=== PATIENT | female | born 1985 | race American Indian/Alaskan Native ===

== ENCOUNTER 2017-04-04 18:22 | Inpatient (IN) | payer MEDICAID ==
[2017-04-04 20:28] LABS: Basophils % (Auto) 0.9 % (0.0-1.8); Eosinophils # (Auto) 0.1 K/mm3 (0.0-0.4); Eosinophils % (Auto) 2.1 % (0.0-4.3); Hematocrit 36.4 % (30.3-42.9); Hemoglobin 11.2 gm/dl (10.1-14.3); Lymphocytes # (Auto) 1.7 K/mm3 (1.2-5.4); Lymphocytes % (Auto) 33.7 % (13.4-35.0); Mean Corpuscular HGB Conc 31 % (30-34); Mean Corpuscular Volume 75 fl (79-97); Monocytes # (Auto) 0.3 K/mm3 (0.0-0.8); Platelet Count 213 K/mm3 (140-440); Red Blood Count 4.87 M/mm3 (3.65-5.03); Red Cell Distribution Width 15.9 % (13.2-15.2)
[2017-04-04 20:34] LABS: Mean Corpuscular Hemoglobin 23 pg (28-32)
[2017-04-04 20:38] LABS: Bilirubin,Urine NEG (Negative); Blood,Urine SM (Negative); Color,Urine Straw (Yellow); Nitrite,Urine NEG (Negative); Protein,Urine <15 mg/dL mg/dL (Negative); Urobilinogen,Urine < 2.0 mg/dL (<2.0); WBC,Urine < 1.0 /HPF (0.0-6.0)
[2017-04-04 20:38] LABS: Blood Urea Nitrogen TNR mg/dL (7-17)
[2017-04-04 20:39] LABS: BUN/Creatinine Ratio TNR; Calcium TNR mg/dL (8.4-10.2); Hemolysis Index TNR
[2017-04-04 20:46] LABS: HCG Qualitative,Urine Negative (Negative)
[2017-04-04 22:10] LABS: BUN/Creatinine Ratio 23; Blood Urea Nitrogen 18 mg/dL (7-17); Calcium 9.2 mg/dL (8.4-10.2); Hemolysis Index 43
[2017-04-04] MEDS ORDERED: D5W/0.45% NACL/KCL 20 MEQ 20 MEQ/1,000 ML BAG IV SCH (23:45)
[2017-04-04] MEDS ORDERED: SODIUM CHLORIDE FLUSH SYRINGE 10 ML IV NR (23:45)
[2017-04-04] MEDS ORDERED: NovoLIN R 100 UNITS in NACL 0.9% 99 ML IV SCH (23:45)
[2017-04-04] MEDS ORDERED: NACL 0.9% 1000 ML 2,000 ML IV ONE (23:56)
[2017-04-04] MEDS ORDERED: D50W (25GM) Syringe IV PRN (23:58)
[2017-04-04] MEDS ORDERED: NACL 0.9% 1000 ML 1,000 ML IV ONE (23:58)
[2017-04-05] MEDS ORDERED: BENADRYL IV ONE (00:09)
[2017-04-05] MEDS ORDERED: ZOFRAN IV ONE (00:13)
--- NOTE | 2017-04-05 00:13 | Emergency Department Report ---
ED N/V/D HPI - General Chief complaint: Hyperglycemia Stated complaint: BACK PAIN, N/V Time Seen by Provider: 04/04/17 23:37 Source: patient Mode of arrival: Ambulatory Limitations: No Limitations - History of Present Illness Initial comments: 31 YO FEMALE WITH BILATERAL FLANK PAIN SINCE 03/28/17 AND INABILITY TO CONTROL HER DM TYPE I. SHE HAS HAD TWO DAY OF NAUSEA AND VOMITING AND ITCHY FEELIGN ON HER ENTIRE BODY. SHE C/O DYSURIA WELL MD complaint: nausea, vomiting, abdominal pain -: week(s) (1) Description of Vomiting: food contents Associated Abdominal Pain: Yes Location: flank (BILATERAL) Severity: severe Pain Scale: 10 Quality: constant Improves with: rest Worsens with: movement Associated Symptoms: denies other symptoms - Related Data Allergies Allergy/AdvReac Type Severity Reaction Status Date / Time ketorolac [From Toradol] Allergy Itching Verified 04/04/17 18:50 morphine Allergy Itching Verified 04/04/17 18:50 ED Review of Systems ROS: Stated complaint: BACK PAIN, N/V Other details as noted in HPI Constitutional: denies: chills, fever Eyes: denies: eye pain, eye discharge, vision change ENT: denies: ear pain, throat pain Respiratory: denies: cough, shortness of breath, wheezing Cardiovascular: denies: chest pain, palpitations Endocrine: no symptoms reported Gastrointestinal: nausea, vomiting. denies: abdominal pain, diarrhea Genitourinary: dysuria. denies: urgency, discharge Musculoskeletal: back pain (BILATERAL FLANK). denies: joint swelling, arthralgia Skin: denies: rash, lesions Neurological: denies: headache, weakness, paresthesias Psychiatric: denies: anxiety, depression Hematological/Lymphatic: denies: easy bleeding, easy bruising ED Past Medical Hx - Past Medical History Previous Medical History?: Yes Hx Diabetes: Yes (TYPE I) - Surgical History Hx Cholecystectomy: Yes Additional Surgical History: NEPHOSTOMY STENTS, - Social History Smoking Status: Unknown if ever smoked Substance Use Type: None ED Physical Exam - General Limitations: No Limitations General appearance: alert, in distress - Head Head exam: Present: atraumatic, normocephalic - Eye Eye exam: Present: normal appearance, EOMI - ENT ENT exam: Present: mucous membranes moist - Neck Neck exam: Present: normal inspection - Respiratory Respiratory exam: Present: normal lung sounds bilaterally. Absent: respiratory distress, wheezes, rales - Cardiovascular Cardiovascular Exam: Present: regular rate, normal rhythm. Absent: systolic murmur, diastolic murmur, rubs, gallop - GI/Abdominal GI/Abdominal exam: Present: soft, tenderness (BILATERAL FLANK), normal bowel sounds - Rectal Rectal exam: Present: deferred - Extremities Exam Extremities exam: Present: normal inspection, full ROM - Back Exam Back exam: Present: normal inspection, full ROM, CVA tenderness (R), CVA tenderness (L) - Neurological Exam Neurological exam: Present: alert, oriented X3, CN II-XII intact - Psychiatric Psychiatric exam: Present: normal affect, normal mood - Skin Skin exam: Present: warm, dry, intact, normal color. Absent: rash ED Course Vital Signs 04/04/17 04/04/17 04/04/17 18:47 23:04 23:16 Temperature 98.6 F Pulse Rate 88 82 85 Respiratory 18 19 20 Rate Blood Pressure 137/88 134/82 134/82 O2 Sat by Pulse 100 96 98 Oximetry 04/04/17 04/04/17 04/05/17 23:30 23:46 00:00 Temperature Pulse Rate 99 H 106 H 96 H Respiratory 11 L 14 14 Rate Blood Pressure 127/89 135/93 144/98 O2 Sat by Pulse 98 100 97 Oximetry 04/05/17 04/05/17 04/05/17 00:16 00:30 00:45 Temperature Pulse Rate 87 125 H 84 Respiratory 11 L 20 17 Rate Blood Pressure 138/87 132/84 133/79 O2 Sat by Pulse 98 97 Oximetry 04/05/17 04/05/17 04/05/17 01:30 01:46 01:49 Temperature Pulse Rate 101 H 96 H Respiratory 12 24 18 Rate Blood Pressure 133/79 120/86 O2 Sat by Pulse 99 98 Oximetry 04/05/17 04/05/17 04/05/17 02:16 04:15 04:30 Temperature Pulse Rate 100 H 88 90 Respiratory 25 H 20 20 Rate Blood Pressure 120/86 127/85 108/69 O2 Sat by Pulse 98 100 98 Oximetry ED Medical Decision Making - Lab Data Result diagrams: 04/04/17 19:41 04/05/17 04:31 - Radiology Data Radiology results: report reviewed (CT ABND/PELVIS W/O :NON-OBSTRUCTING STONE IN THE LEFT KIDNEY, 3.4 CM LEFT OVERIAN CYSTS) Critical Care Time: Yes Critical care time in (mins) excluding proc time.: 30 Critical care attestation.: If time is entered above; I have spent that time in minutes in the direct care of this critically ill patient, excluding procedure time. PETER ED Disposition Clinical Impression: Bilateral flank pain DKA, type 1 Qualifiers: Diabetes mellitus complication detail: without coma Qualified Code(s): E10.10 - Type 1 diabetes mellitus with ketoacidosis without coma Disposition: DC-09 OP ADMIT IP TO THIS HOSP Is pt being admited?: Yes Does the pt Need Aspirin: No Condition: Critical Instructions: Diabetic Ketoacidosis (ED) Time of Disposition: 05:17 (DR KERVIN LYONS AND CASE REVIEWED AND SHE WILL ADMIT THE PT TO THE HOSPITAL)
--- NOTE | 2017-04-05 01:17 | Cat Scan Report ---
FINAL REPORT EXAM: CT ABDOMEN PELVIS WO CON HISTORY: BILATERAL FLANK PAIN TECHNIQUE: Routine axial imaging was obtained of the abdomen and pelvis without oral or IV contrast. Sagittal and coronal reconstructions were reviewed. FINDINGS: The lung bases are clear. Pleural fluid is not identified. The gallbladder has been removed. The biliary tree appears normal. The liver, adrenal glands, and pancreas appear normal. There are benign calcifications noted in the spleen which otherwise is normal in size. The kidneys reveal several nonobstructing calcifications in the left kidney measure up to 6 millimeters in diameter. There is no evidence of hydronephrosis. In the upper abdomen there are nonspecific vascular calcifications. The bowel loops are normal in caliber. The appendix is not enlarged. There is no evidence of free fluid or adenopathy. The bowel loops otherwise reveal radiopaque material in the colon. In the pelvis there is a left ovarian cyst measuring 3.4 cm in diameter. Free fluid is not seen. The uterus and bladder appear normal. There are multiple phleboliths along the floor of the pelvis. The skeletal structures do not show any acute changes. IMPRESSION: Cholecystectomy. No acute process in the abdomen and pelvis. Nonobstructing stones in left kidney. No evidence of hydronephrosis. No evidence of appendicitis. 3.4 cm left ovarian cyst. No evidence of free fluid
[2017-04-05 01:47] LABS: Magnesium 2.1 mg/dL (1.7-2.3)
[2017-04-05 01:51] LABS: BUN/Creatinine Ratio 20; Blood Urea Nitrogen 16 mg/dL (7-17); Calcium 9.2 mg/dL (8.4-10.2); Hemolysis Index 13
[2017-04-05 03:14] LABS: BUN/Creatinine Ratio 23; Blood Urea Nitrogen 16 mg/dL (7-17); Calcium 9.5 mg/dL (8.4-10.2); Hemolysis Index 29
[2017-04-05] MEDS ORDERED: ZOFRAN ONE (03:57)
[2017-04-05] MEDS ORDERED: NACL 0.9% 1000 ML 1,000 ML ONE ×2 (03:58→03:59)
[2017-04-05] MEDS ORDERED: BENADRYL ONE (03:59)
[2017-04-05 04:58] LABS: BUN/Creatinine Ratio 21; Blood Urea Nitrogen 15 mg/dL (7-17); Calcium 9.1 mg/dL (8.4-10.2); Hemolysis Index 22
[2017-04-05] MEDS ORDERED: ZOFRAN IV PRN (05:25)
[2017-04-05] MEDS ORDERED: TYLENOL PO PRN (05:25)
[2017-04-05] MEDS ORDERED: DULCOLAX PR PRN (05:25)
[2017-04-05] MEDS ORDERED: MORPHINE IV PRN (05:25)
[2017-04-05] MEDS ORDERED: MILK OF MAGNESIA PO PRN (05:25)
--- NOTE | 2017-04-05 05:55 | History and Physical Report ---
History of Present Illness Date of examination: 04/05/17 History of present illness: 31 -year-old woman with a history of diabetes plus emergency room with complaints of nausea and vomiting, unable to tolerate oral intake for 2 days. Also complained that her blood sugars been running high at home and also complain of bilateral flank pain. Described the flank pain as sharp, constant, intensity 5/10, no radiation, she can identify exacerbating factor. Also admits to urinary frequency, no dysuria Review Of Systems: Constitutional: no weight loss Ears, eyes, nose, mouth and throat: no nasal congestion, no nasal discharge, no sinus pressure, blurry vision, diplopia Neck: No neck pain or rigidity. Cardiovascular: No chest pain, palpitations Respiratory: No shortness of breath, cough Gastrointestinal: No abdominal pain, hematochezia Genitourinary : no dysuria, frequency , hematuria Musculoskeletal: no muscle ache Integumentary: no rash, no pruritis Neurological: no parathesias, focal weakness Endocrine: no cold or heat intolerance, no polyuria or polydipsia Hematologic/Lymphatic: no easy bruising, no easy bleeding, no gland swelling Allergic/Immunologic: no urticaria, no angioedema. Medications and Allergies Allergies Allergy/AdvReac Type Severity Reaction Status Date / Time ketorolac tromethamine Allergy Severe Hives Verified 08/10/16 21:06 [From Toradol] ketorolac [From Toradol] Allergy Itching Verified 04/04/17 18:50 morphine Allergy Itching Verified 04/04/17 18:50 Home Medications Medication Instructions Recorded Confirmed Last Taken Type Insulin Glargine,Hum.rec.anlog 26 units SUB-Q QPM 04/05/17 04/05/17 Unknown History [Basaglar Kwikpen U-100] Insulin Lispro [HumaLOG VIAL] 9 units SUB-Q AC 04/05/17 04/05/17 Unknown History Methimazole [Tapazole] 10 mg PO QDAY 04/05/17 04/05/17 Unknown History Ondansetron [Zofran Odt] 4 mg PO Q4H PRN #30 tab.rapdis 04/07/17 Unknown Rx oxyCODONE /ACETAMINOPHEN [Percocet 1 tab PO Q4HR #12 tab 04/07/17 Unknown Rx 5/325] Active Meds: Active Medications Acetaminophen (Tylenol) 650 mg PO Q4H PRN PRN Reason: Pain MILD(1-3)/Fever >100.5/SAINZ Bisacodyl (Dulcolax) 10 mg [place] QDAY PRN PRN Reason: Constipation unrelieved by MOM Dextrose (D50w (25gm) Syringe) 0 ml IV PRN PRN PRN Reason: Hypoglycemia Enoxaparin Sodium (Lovenox) 40 mg SUB-Q QDAY MATEO Hydromorphone HCl (Dilaudid) 1 mg IV Q4H PRN PRN Reason: Pain , Severe (7-10) Insulin Human Regular 100 (units/ Sodium Chloride) 100 mls @ 9.9 mls/hr IV TITR MATEO; 9.9 UNITS/HR PRN Reason: Protocol Last Titration: 04/05/17 05:38 Dose: 5 units/hr, 5 mls/hr Dextrose/Sodium Chloride (D5/0.45ns) 1,000 mls @ 150 mls/hr IV DIRECT MATEO Sodium Chloride (Nacl 0.9% 1000 Ml) 1,000 mls @ 150 mls/hr IV DIRECT MATEO Magnesium Hydroxide (Milk Of Magnesia) 30 ml PO Q4H PRN PRN Reason: Constipation Ondansetron HCl (Zofran) 4 mg IV Q8H PRN PRN Reason: N/V unrelieved by Reglan Sodium Chloride (Sodium Chloride Flush Syringe 10 Ml) 10 ml IV PRN NR Stop: 04/05/17 23:44 Exam - Physical Exam Narrative exam: Gen. appearance: Patient lying in bed in no acute distress HEENT: Normocephalic/atraumatic, pupils equal round reactive to light, extra occular movement intact, no scleral icterus, no JVD or thyromegaly or nodule, neck is supple, mucous membrane moist, no erythema or exudate Heart: S1-S2, regular rate and rhythm Lungs: Clear to auscultation bilateral breathing comfortable Abdomen: Positive bowel sounds, nontender, nondistended, no organomegaly Extremities: No edema, cyanosis, clubbing Neuro:: Oriented 3 , cranial nerves II-12 intact, speech, motor intact Skin: No rash, nodules, warm dry - Constitutional Vitals: Temp Pulse Resp BP Pulse Ox 98.6 F 94 H 20 102/66 98 04/04/17 18:47 04/05/17 05:00 04/05/17 05:00 04/05/17 05:00 04/05/17 05:00 Results - Labs CBC & Chem 7: 04/06/17 04:25 04/06/17 04:25 Labs: Abnormal lab results 04/04/17 04/04/17 04/04/17 Range/Units 18:50 19:41 21:31 MCV 75 L (79-97) fl MCH 23 L (28-32) pg RDW 15.9 H (13.2-15.2) % Sodium 129 L (137-145) mmol/L Potassium 5.4 H (3.6-5.0) mmol/L Chloride 92.2 L (98-107) mmol/L Carbon Dioxide 19 L (22-30) mmol/L BUN 18 H (7-17) mg/dL Glucose 620 H* (65-100) mg/dL POC Glucose > 500 H (70-105) 04/05/17 04/05/17 04/05/17 Range/Units 01:09 02:27 04:15 MCV (79-97) fl MCH (28-32) pg RDW (13.2-15.2) % Sodium 132 L 134 L (137-145) mmol/L Potassium (3.6-5.0) mmol/L Chloride 95.1 L 96.5 L (98-107) mmol/L Carbon Dioxide 20 L (22-30) mmol/L BUN (7-17) mg/dL Glucose 452 H 433 H (65-100) mg/dL POC Glucose 402 H (70-105) 04/05/17 04/05/17 Range/Units 04:31 05:32 MCV (79-97) fl MCH (28-32) pg RDW (13.2-15.2) % Sodium 134 L (137-145) mmol/L Potassium (3.6-5.0) mmol/L Chloride (98-107) mmol/L Carbon Dioxide (22-30) mmol/L BUN (7-17) mg/dL Glucose 384 H (65-100) mg/dL POC Glucose 283 H (70-105) - Imaging and Cardiology CT scan - abdomen: report reviewed CT scan - pelvis: report reviewed Assessment and Plan Assessment DKA Pseudohyponatremia Plan admit to medicine Start IV fluids, insulin drip, monitor serial chemistry, blood sugar Consult critical care, iv. pain medication, DVT prophylaxis
[2017-04-05] MEDS ORDERED: D5/0.45NS 1,000 ML IV SCH (06:00)
[2017-04-05] MEDS ORDERED: NACL 0.9% 1000 ML 1,000 ML IV SCH ×2 (06:00→10:00)
[2017-04-05] MEDS ORDERED: DILAUDID ONE ×2 (06:10→09:37)
[2017-04-05] MEDS: DILAUDID IV PRN ×5 (06:37→22:47)
[2017-04-05 06:55] LABS: BUN/Creatinine Ratio 22; Blood Urea Nitrogen 13 mg/dL (7-17); Calcium 8.5 mg/dL (8.4-10.2); Hemolysis Index 79
[2017-04-05] MEDS ORDERED: D50W (25GM) Syringe IV PRN (09:58)
[2017-04-05 10:49] LABS: BUN/Creatinine Ratio 18; Blood Urea Nitrogen 11 mg/dL (7-17); Calcium 8.5 mg/dL (8.4-10.2); Hemolysis Index 47
[2017-04-05] MEDS: BENADRYL IV PRN ×2 (11:04→18:41)
[2017-04-05] MEDS: NACL 0.45% 1000 ML 1,000 ML IV SCH (11:30)
[2017-04-05] MEDS: KCL 20MEQ/100ML 20 MEQ/100 ML BAG IV SCH ×2 (11:31→11:32)
[2017-04-05] MEDS: LOVENOX SUB-Q SCH (13:30)
--- NOTE | 2017-04-05 14:37 | Event Note ---
Date: 04/05/17 Patient was admitted for DKA and started to be managed for daycare according to DKA protocol. Patient to DKA and admission is downgraded to MedSurg floor.. Patient is on sliding scale insulin, ADA diet, and home dose of QHS insulin
[2017-04-05 17:19] LABS: BUN/Creatinine Ratio 14; Blood Urea Nitrogen 11 mg/dL (7-17)
[2017-04-05 17:20] LABS: Calcium 8.2 mg/dL (8.4-10.2); Hemolysis Index 0
[2017-04-05] MEDS: LEVEMIR SUB-Q SCH (22:49)
[2017-04-06 01:18] LABS: BUN/Creatinine Ratio 16; Blood Urea Nitrogen 11 mg/dL (7-17); Calcium 8.3 mg/dL (8.4-10.2); Hemolysis Index 15
[2017-04-06] MEDS: DILAUDID IV PRN ×4 (03:32→20:14)
[2017-04-06] MEDS: BENADRYL IV PRN ×3 (03:32→20:14)
[2017-04-06 04:41] LABS: Basophils % (Auto) 0.7 % (0.0-1.8); Eosinophils # (Auto) 0.1 K/mm3 (0.0-0.4); Eosinophils % (Auto) 3.4 % (0.0-4.3); Hemoglobin 10.2 gm/dl (10.1-14.3); Lymphocytes # (Auto) 1.9 K/mm3 (1.2-5.4); Lymphocytes % (Auto) 43.4 % (13.4-35.0); Mean Corpuscular HGB Conc 31 % (30-34); Mean Corpuscular Volume 74 fl (79-97); Monocytes # (Auto) 0.3 K/mm3 (0.0-0.8); Monocytes % (Auto) 6.7 % (0.0-7.3); Platelet Count 184 K/mm3 (140-440); Red Blood Count 4.44 M/mm3 (3.65-5.03); Red Cell Distribution Width 15.8 % (13.2-15.2)
[2017-04-06 04:42] LABS: Mean Corpuscular Hemoglobin 23 pg (28-32)
[2017-04-06 05:04] LABS: BUN/Creatinine Ratio 14; Blood Urea Nitrogen 10 mg/dL (7-17); Calcium 8.5 mg/dL (8.4-10.2); Hemolysis Index 8
[2017-04-06] MEDS: NACL 0.45% 1000 ML 1,000 ML IV SCH ×2 (08:01→20:14)
--- NOTE | 2017-04-06 11:09 | XRay Report ---
Portable chest: Line placement. There is a left PICC line well-positioned in the mid SVC. The lungs are clear the mediastinal contour is unremarkable.
[2017-04-06] MEDS: LOVENOX SUB-Q SCH (11:17)
--- NOTE | 2017-04-06 15:40 | Progress Note ---
<AMIE MENDOZA - Last Filed: 04/06/17 15:35> Assessment and Plan Assessment and plan: 31 -year-old woman with a history of diabetes presents to emergency room with complaints of nausea and vomiting, unable to tolerate oral intake for 2 days. Also complained that her blood sugars been running high at home and also complain of bilateral flank pain. Described the flank pain as sharp, constant, intensity with 10, no radiation, she can identify exacerbating factor. Also admits to urinary frequency, no dysuria DKA Resolved Continue daily at bedtime insulin, SSI, ADA diet Accu-Cheks before meals and at bedtime Pseudohyponatremia Resolved, will continue to monitor Nausea Patient is still actively nauseous, we'll continue to observe, continue Zofran when necessary, possible GI consult. Flank pain Supportive care DVT prophylaxis Lovenox History Interval history: Patient seen and examined. She continues to complain of nausea and bilateral flank pain. She denies chest pain, shortness of breath, not vomiting. Nursing notes and labs reviewed. Hospitalist Physical - Constitutional Vitals: Temp Pulse Resp BP Pulse Ox 98.8 F 79 18 121/81 99 04/06/17 07:28 04/06/17 07:28 04/06/17 07:28 04/06/17 07:28 04/06/17 07:28 General appearance: Present: mild distress - EENT Eyes: Present: PERRL, EOM intact ENT: hearing intact, clear oral mucosa - Neck Neck: Present: supple, normal ROM - Respiratory Respiratory effort: normal Respiratory: bilateral: CTA - Cardiovascular Rhythm: regular Heart Sounds: Present: S1 & S2 - Extremities Extremities: no ischemia, No edema Peripheral Pulses: within normal limits - Abdominal General gastrointestinal: soft, tender (bilateral flank R>L) - Integumentary Integumentary: Present: clear, warm, dry - Psychiatric Psychiatric: appropriate mood/affect, cooperative - Neurologic Neurologic: CNII-XII intact, moves all extremities - Allied Health Allied health notes reviewed: nursing Results - Labs CBC & Chem 7: 04/06/17 04:25 04/06/17 04:25 Labs: Laboratory Last Values WBC 4.3 K/mm3 (4.5-11.0) L 04/06/17 04:25 RBC 4.44 M/mm3 (3.65-5.03) 04/06/17 04:25 Hgb 10.2 gm/dl (10.1-14.3) 04/06/17 04:25 Hct 33.0 % (30.3-42.9) 04/06/17 04:25 MCV 74 fl (79-97) L 04/06/17 04:25 MCH 23 pg (28-32) L 04/06/17 04:25 MCHC 31 % (30-34) 04/06/17 04:25 RDW 15.8 % (13.2-15.2) H 04/06/17 04:25 Plt Count 184 K/mm3 (140-440) 04/06/17 04:25 Lymph % (Auto) 43.4 % (13.4-35.0) H 04/06/17 04:25 [place] % (Auto) 6.7 % (0.0-7.3) 04/06/17 04:25 Eos % (Auto) 3.4 % (0.0-4.3) 04/06/17 04:25 Baso % (Auto) 0.7 % (0.0-1.8) 04/06/17 04:25 Lymph # 1.9 K/mm3 (1.2-5.4) 04/06/17 04:25 [place] # 0.3 K/mm3 (0.0-0.8) 04/06/17 04:25 Eos # 0.1 K/mm3 (0.0-0.4) 04/06/17 04:25 Baso # 0.0 K/mm3 (0.0-0.1) 04/06/17 04:25 Seg Neutrophils % 45.8 % (40.0-70.0) 04/06/17 04:25 Seg Neutrophils # 2.0 K/mm3 (1.8-7.7) 04/06/17 04:25 VBG pH 7.347 (7.320-7.420) 04/04/17 19:41 Sodium 137 mmol/L (137-145) 04/06/17 04:25 Potassium 4.1 mmol/L (3.6-5.0) 04/06/17 04:25 Chloride 100.5 mmol/L (98-107) 04/06/17 04:25 Carbon Dioxide 23 mmol/L (22-30) 04/06/17 04:25 Anion Gap 18 mmol/L 04/06/17 04:25 BUN 10 mg/dL (7-17) 04/06/17 04:25 Creatinine 0.7 mg/dL (0.7-1.2) 04/06/17 04:25 Estimated GFR > 60 ml/min 04/06/17 04:25 BUN/Creatinine Ratio 14 % 04/06/17 04:25 Glucose 156 mg/dL (65-100) H 04/06/17 04:25 POC Glucose 277 (70-105) H 04/06/17 11:28 Calcium 8.5 mg/dL (8.4-10.2) 04/06/17 04:25 Phosphorus 3.10 mg/dL (2.5-4.5) 04/05/17 01:09 Magnesium 2.10 mg/dL (1.7-2.3) 04/05/17 01:09 Urine Color Straw (Yellow) 04/04/17 19:54 Urine Turbidity Clear (Clear) 04/04/17 19:54 Urine pH 6.0 (5.0-7.0) 04/04/17 19:54 Ur Specific [place] 1.023 (1.003-1.030) 04/04/17 19:54 Urine Protein <15 mg/dl mg/dL (Negative) 04/04/17 19:54 Urine Glucose (UA) >=500 mg/dL (Negative) 04/04/17 19:54 Urine Ketones Neg mg/dL (Negative) 04/04/17 19:54 Urine Blood Sm (Negative) 04/04/17 19:54 Urine Nitrite Neg (Negative) 04/04/17 19:54 Urine Bilirubin Neg (Negative) 04/04/17 19:54 Urine Urobilinogen < 2.0 mg/dL (<2.0) 04/04/17 19:54 Ur Leukocyte Esterase Neg (Negative) 04/04/17 19:54 Urine WBC (Auto) < 1.0 /HPF (0.0-6.0) 04/04/17 19:54 Urine RBC (Auto) 1.0 /HPF (0.0-6.0) 04/04/17 19:54 U Epithel Cells (Auto) < 1.0 /HPF (0-13.0) 04/04/17 19:54 Urine HCG, Qual Negative (Negative) 04/04/17 19:54 <NATALIE ROBIN M - Last Filed: 04/07/17 08:26> Assessment and Plan Assessment and plan: I saw and evaluated the patient. I agree with the findings and the plan of care as documented in the PA's note. Patient has non obstructive kidney stones in the left kidney. Hospitalist Physical - Constitutional Vitals: Temp Pulse Resp BP Pulse Ox 99.6 F 77 18 113/64 98 04/07/17 07:19 04/07/17 07:19 04/07/17 07:19 04/07/17 07:19 04/07/17 07:19 Results - Labs CBC & Chem 7: 04/06/17 04:25 04/06/17 04:25 Labs: Laboratory Last Values WBC 4.3 K/mm3 (4.5-11.0) L 04/06/17 04:25 RBC 4.44 M/mm3 (3.65-5.03) 04/06/17 04:25 Hgb 10.2 gm/dl (10.1-14.3) 04/06/17 04:25 Hct 33.0 % (30.3-42.9) 04/06/17 04:25 MCV 74 fl (79-97) L 04/06/17 04:25 MCH 23 pg (28-32) L 04/06/17 04:25 MCHC 31 % (30-34) 04/06/17 04:25 RDW 15.8 % (13.2-15.2) H 04/06/17 04:25 Plt Count 184 K/mm3 (140-440) 04/06/17 04:25 Lymph % (Auto) 43.4 % (13.4-35.0) H 04/06/17 04:25 [place] % (Auto) 6.7 % (0.0-7.3) 04/06/17 04:25 Eos % (Auto) 3.4 % (0.0-4.3) 04/06/17 04:25 Baso % (Auto) 0.7 % (0.0-1.8) 04/06/17 04:25 Lymph # 1.9 K/mm3 (1.2-5.4) 04/06/17 04:25 [place] # 0.3 K/mm3 (0.0-0.8) 04/06/17 04:25 Eos # 0.1 K/mm3 (0.0-0.4) 04/06/17 04:25 Baso # 0.0 K/mm3 (0.0-0.1) 04/06/17 04:25 Seg Neutrophils % 45.8 % (40.0-70.0) 04/06/17 04:25 Seg Neutrophils # 2.0 K/mm3 (1.8-7.7) 04/06/17 04:25 VBG pH 7.347 (7.320-7.420) 04/04/17 19:41 Sodium 137 mmol/L (137-145) 04/06/17 04:25 Potassium 4.1 mmol/L (3.6-5.0) 04/06/17 04:25 Chloride 100.5 mmol/L (98-107) 04/06/17 04:25 Carbon Dioxide 23 mmol/L (22-30) 04/06/17 04:25 Anion Gap 18 mmol/L 04/06/17 04:25 BUN 10 mg/dL (7-17) 04/06/17 04:25 Creatinine 0.7 mg/dL (0.7-1.2) 04/06/17 04:25 Estimated GFR > 60 ml/min 04/06/17 04:25 BUN/Creatinine Ratio 14 % 04/06/17 04:25 Glucose 156 mg/dL (65-100) H 04/06/17 04:25 POC Glucose 262 (70-105) H 04/06/17 21:08 Calcium 8.5 mg/dL (8.4-10.2) 04/06/17 04:25 Phosphorus 3.10 mg/dL (2.5-4.5) 04/05/17 01:09 Magnesium 2.10 mg/dL (1.7-2.3) 04/05/17 01:09 Urine Color Straw (Yellow) 04/04/17 19:54 Urine Turbidity Clear (Clear) 04/04/17 19:54 Urine pH 6.0 (5.0-7.0) 04/04/17 19:54 Ur Specific [place] 1.023 (1.003-1.030) 04/04/17 19:54 Urine Protein <15 mg/dl mg/dL (Negative) 04/04/17 19:54 Urine Glucose (UA) >=500 mg/dL (Negative) 04/04/17 19:54 Urine Ketones Neg mg/dL (Negative) 04/04/17 19:54 Urine Blood Sm (Negative) 04/04/17 19:54 Urine Nitrite Neg (Negative) 04/04/17 19:54 Urine Bilirubin Neg (Negative) 04/04/17 19:54 Urine Urobilinogen < 2.0 mg/dL (<2.0) 04/04/17 19:54 Ur Leukocyte Esterase Neg (Negative) 04/04/17 19:54 Urine WBC (Auto) < 1.0 /HPF (0.0-6.0) 04/04/17 19:54 Urine RBC (Auto) 1.0 /HPF (0.0-6.0) 04/04/17 19:54 U Epithel Cells (Auto) < 1.0 /HPF (0-13.0) 04/04/17 19:54 Urine HCG, Qual Negative (Negative) 04/04/17 19:54
[2017-04-06] MEDS: LEVEMIR SUB-Q SCH (22:50)
[2017-04-07] MEDS: DILAUDID IV PRN ×5 (00:19→15:36)
[2017-04-07] MEDS: BENADRYL IV PRN ×2 (04:07→11:44)
[2017-04-07] MEDS: NACL 0.45% 1000 ML 1,000 ML IV SCH (06:19)
[2017-04-07] MEDS: LOVENOX SUB-Q SCH (10:58)
--- NOTE | 2017-04-07 11:21 | Discharge Summary ---
Providers - Providers Date of Admission: 04/05/17 05:25 Date of discharge: 04/07/17 Attending physician: NATALIE ROBIN MD 04/05/17 14:05 PICC Line Insertion [Consult to PICC Line RN] [CONS] Urgent Reason For Exam: poor venous access. Pt is also diabetic Type Line:: PICC Hospitalization Condition: Critical Pertinent studies: The abdomen and pelvis revealed no presence of appendicitis, nonobstructing stones in the left kidney and no evidence of hydronephrosis. Also left ovarian cysts with no evidence of free fluid Hospital course: 31 -year-old woman with a history of diabetes presents to emergency room with complaints of nausea and vomiting, unable to tolerate oral intake for 2 days. Also complained that her blood sugars been running high at home and also complain of bilateral flank pain. Described the flank pain as sharp, constant, intensity with 10, no radiation, she can identify exacerbating factor. Also admits to urinary frequency, no dysuria Discharge Diagnosis DKA Pseudohyponatremia Nausea Flank pain DVT prophylaxis Disposition: TO HOME OR SELFCARE Time spent for discharge: 35 mins Core Measure Documentation - Palliative Care Palliative Care/ Comfort Measures: Not Applicable - Core Measures Any of the following diagnoses?: none Exam - Constitutional Vitals: Temp Pulse Resp BP Pulse Ox 99.6 F 77 18 113/64 98 04/07/17 07:19 04/07/17 07:19 04/07/17 07:19 04/07/17 07:19 04/07/17 07:19 General appearance: Present: no acute distress, well-nourished - EENT Eyes: Present: PERRL ENT: hearing intact, clear oral mucosa - Neck Neck: Present: supple, normal ROM - Respiratory Respiratory effort: normal Respiratory: bilateral: CTA - Cardiovascular Heart Sounds: Present: S1 & S2. Absent: rub, click - Extremities Extremities: pulses symmetrical, No edema - Abdominal General gastrointestinal: Present: soft, tender (bilateral flank pain) Female genitourinary: Present: deferred - Rectal Rectal Exam: deferred - Integumentary Integumentary: Present: clear, warm, dry - Musculoskeletal Musculoskeletal: gait normal, strength equal bilaterally - Psychiatric Psychiatric: appropriate mood/affect, intact judgment & insight - Neurologic Neurologic: CNII-XII intact, moves all extremities - Allied Health Allied health notes reviewed: nursing Plan Activity: advance as tolerated, fall precautions, other (No strenuous activity until cleared by PCP) Weight Bearing Status: Weight Bear as Tolerated Diet: low fat, low cholesterol, low salt, diabetic Follow up with: TUCKER JESSICA MD [Staff Physician] - 3-5 Days Prescriptions: Ondansetron [Zofran Odt] 4 mg PO Q4H PRN #30 tab.rapdis PRN Reason: Nausea oxyCODONE /ACETAMINOPHEN [Percocet 5/325] 1 tab PO Q4HR #12 tab
[2017-04-07 16:24] VITALS: BP 116/78
== END 2017-04-07 17:30 | disposition home or self-care (01) | DRG 639 ==
LOC: ED 18:22 → CC1 04-05 05:25 → 3A 04-05 12:02
PROVIDERS: ADMIT Internal Medicine; ATTEND Internal Medicine
PROC: 02HV33Z Insertion of Infusion Device into Superior Vena Cava, Percutaneous Approach (ICD-10-PCS; principal; 2017-04-06)
DX: E10.10 Type 1 diabetes mellitus with ketoacidosis without coma (principal); N20.0 Calculus of kidney; N83.202 Unspecified ovarian cyst, left side; Z88.5 Allergy status to narcotic agent; Z79.4 Long term (current) use of insulin; Z79.899 Other long term (current) drug therapy
CPT/HCPCS: 36415; 71045; 74176; 80048; 81001; 81025; 82805; 82962; 83735; 84100; 85025; J1170; J1200; J1650; J1815; J1818; J2405; J3480; J7030

== ENCOUNTER 2017-05-30 23:03 | Emergency (ER) | payer MEDICAID | END 2017-05-30 23:30 | disposition left against medical advice (07) | LOC: ED 23:03 | DX: R10.9 Unspecified abdominal pain (principal); Z53.21 Procedure and treatment not carried out due to patient leaving prior to being seen by health care provider ==

== ENCOUNTER 2017-10-28 20:05 | Emergency (ER) | payer MEDICAID ==
[2017-10-28] MEDS ORDERED: NACL 0.9% 1000 ML 1,000 ML IV ONE (20:20)
[2017-10-28 20:43] LABS: Basophils % (Auto) 0.6 % (0.0-1.8); Eosinophils % (Auto) 0.7 % (0.0-4.3); Hematocrit 33.5 % (30.3-42.9); Hemoglobin 10.6 gm/dl (10.1-14.3); Lymphocytes # (Auto) 1.5 K/mm3 (1.2-5.4); Mean Corpuscular HGB Conc 32 % (30-34); Mean Corpuscular Volume 74 fl (79-97); Monocytes # (Auto) 0.3 K/mm3 (0.0-0.8); Monocytes % (Auto) 4.7 % (0.0-7.3); Platelet Count 212 K/mm3 (140-440); Red Cell Distribution Width 15.8 % (13.2-15.2)
[2017-10-28 20:44] LABS: Mean Corpuscular Hemoglobin 24 pg (28-32)
[2017-10-28 20:56] LABS: Alanine Aminotransferase 7 units/L (7-56); Albumin 3.8 g/dL (3.9-5); BUN/Creatinine Ratio 16; Blood Urea Nitrogen 13 mg/dL (7-17); Calcium 9.3 mg/dL (8.4-10.2); Hemolysis Index 0; Lipase 12 units/L (13-60)
[2017-10-28] MEDS ORDERED: DILAUDID IV ONE (23:30)
[2017-10-28] MEDS ORDERED: ZOFRAN IV ONE (23:31)
[2017-10-28] MEDS ORDERED: BENADRYL IV ONE (23:31)
[2017-10-29 00:59] LABS: Bilirubin,Urine NEG (Negative); Blood,Urine MOD (Negative); Color,Urine Colorless (Yellow); Protein,Urine <15 mg/dL mg/dL (Negative); Urobilinogen,Urine < 2.0 mg/dL (<2.0)
[2017-10-29] MEDS ORDERED: BENADRYL IV ONE (01:01)
[2017-10-29] MEDS ORDERED: DILAUDID IV ONE (01:01)
--- NOTE | 2017-10-29 01:17 | Cat Scan Report ---
FINAL REPORT PROCEDURE: CT ABDOMEN PELVIS WO CON TECHNIQUE: Computerized axial tomography of the abdomen and pelvis was performed without intravenous contrast. This study is performed without intravascular contrast material and its sensitivity for abdominal and pelvic pathology, including neoplasms, inflammation, abscess, free fluid, thrombosis, arterial dissection and infarction, is reduced compared with a contrast enhanced study. HISTORY: Right lower quadrant abdominal pain COMPARISON: Prior CT scan abdomen and pelvis 04/05/2017 FINDINGS: Lower Lung colin: No focal abnormality seen. Upper Abdomen: Gallbladder is surgically absent. The unenhanced images the liver show no focal abnormalities. Calcified granulomas appear to be present within the spleen. The spleen is otherwise unremarkable. The adrenal glands are unremarkable. Pancreas showed no focal abnormalities. 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 The renal pelvis is directed anteriorly and an extrarenal pelvis is present. No hydronephrosis visualized.. There is a nonobstructing 4.4 millimeter calculus in the lower 3rd of the left kidney. No masses or calculi are seen on the left. Left ureter is not distended. No definite ureteral calculi are visualized. Retroperitoneum: Atherosclerotic changes are seen in the abdominal aorta. No aneurysm is visualized. Diffuse calcifications appear to be present in the left renal vein. This was seen on the prior study may represent chronic thrombosis.. Nonspecific subcentimeter lymph nodes are seen in the retroperitoneum. No pathologically enlarged lymph nodes are identified. Bowel: Bowel loops show no focal abnormalities. No evidence of bowel obstruction or ascites. There is no free intraperitoneal gas. Normal-appearing appendix is seen in the right lower quadrant. Reproductive organs: Uterus is mildly deviated to the right otherwise is unremarkable. No abnormal adnexal masses are seen. Other: No acute bony abnormalities are seen. IMPRESSION: Prior cholecystectomy. Prior granulomatous disease. Dense calcifications seen throughout the left renal vein. This was seen on the prior study and may reflect chronic thrombosis. Small nonobstructing calculus left kidney. .
[2017-10-29] MEDS ORDERED: HumuLIN R IV ONE ×2 (01:44→02:42)
--- NOTE | 2017-10-29 01:53 | Emergency Department Report ---
ED General Adult HPI - General Chief complaint: Abdominal Pain Stated complaint: NAUSEA, VOMITING, RIGHT SIDE PAIN, HEADACHE Time Seen by Provider: 10/28/17 23:10 Source: patient Mode of arrival: Ambulatory Limitations: No Limitations - History of Present Illness Initial comments: Patient presents to emergency Department right lower quadrant abdominal pain for the last couple of days. Patient's cause of pain is sharp in nature and denies any radiation. She rates the pain as an 8 out of 10 without anything making it better or worse. Patient endorses having pain like this before which was secondary to a kidney stone. Patient os chest pain, shortness breath , headache. -: Gradual Location: abdomen Radiation: non-radiation Severity scale (0 -10): 8 Quality: sharp Consistency: constant Improves with: none Worsens with: none Associated Symptoms: denies other symptoms Treatments Prior to Arrival: none - Related Data Home Medications Medication Instructions Recorded Confirmed Last Taken Insulin Glargine,Hum.rec.anlog 26 units SUB-Q QPM 04/05/17 04/05/17 Unknown [Basaglar Kwikpen U-100] Insulin Lispro [HumaLOG VIAL] 9 units SUB-Q AC 04/05/17 04/05/17 Unknown Methimazole [Tapazole] 10 mg PO QDAY 04/05/17 04/05/17 Unknown Previous Rx's Medication Instructions Recorded Last Taken Type Ondansetron [Zofran Odt] 4 mg PO Q4H PRN #30 tab.rapdis 04/07/17 Unknown Rx oxyCODONE /ACETAMINOPHEN [Percocet 1 tab PO Q4HR #12 tab 04/07/17 Unknown Rx 5/325] HYDROcodone/ACETAMINOPHEN [[place] 1 each PO Q6H PRN #10 tablet 10/29/17 Unknown Rx 5-325 Tablet] Allergies Allergy/AdvReac Type Severity Reaction Status Date / Time ketorolac tromethamine Allergy Severe Hives Verified 08/10/16 21:06 [From Toradol] ketorolac [From Toradol] Allergy Itching Verified 04/04/17 18:50 morphine Allergy Itching Verified 04/04/17 18:50 ED Review of Systems ROS: Stated complaint: NAUSEA, VOMITING, RIGHT SIDE PAIN, HEADACHE Other details as noted in HPI Comment: All other systems reviewed and negative Constitutional: denies: chills, fever Eyes: denies: eye pain, eye discharge, vision change ENT: denies: ear pain, throat pain Respiratory: denies: cough, shortness of breath, wheezing Cardiovascular: denies: chest pain, palpitations Endocrine: no symptoms reported Gastrointestinal: abdominal pain. denies: nausea, diarrhea Genitourinary: denies: urgency, dysuria, discharge Musculoskeletal: denies: back pain, joint swelling, arthralgia Skin: denies: rash, lesions Neurological: denies: headache, weakness, paresthesias Psychiatric: denies: anxiety, depression Hematological/Lymphatic: denies: easy bleeding, easy bruising ED Past Medical Hx - Past Medical History Hx Congestive Heart Failure: No Hx Diabetes: Yes Hx Deep Vein Thrombosis: No Hx Renal Disease: Yes (kidney stones) Hx Kidney Stones: Yes (nephrostomt tube, hydronephrosis) Hx Asthma: No Hx COPD: No Hx Tuberculosis: No Hx HIV: No Additional medical history: THYROID, 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 - Surgical History Hx Pacemaker: No Hx Internal Defibrillator: No Hx Cholecystectomy: Yes Additional Surgical History: NEPHOSTOMY STENTS, - Social History Smoking Status: Never Smoker Substance Use Type: None - Medications Home Medications: Home Medications Medication Instructions Recorded Confirmed Last Taken Type Insulin Glargine,Hum.rec.anlog 26 units SUB-Q QPM 04/05/17 04/05/17 Unknown History [Basaglar Kwikpen U-100] Insulin Lispro [HumaLOG VIAL] 9 units SUB-Q AC 04/05/17 04/05/17 Unknown History Methimazole [Tapazole] 10 mg PO QDAY 04/05/17 04/05/17 Unknown History Ondansetron [Zofran Odt] 4 mg PO Q4H PRN #30 tab.rapdis 04/07/17 Unknown Rx oxyCODONE /ACETAMINOPHEN [Percocet 1 tab PO Q4HR #12 tab 04/07/17 Unknown Rx 5/325] HYDROcodone/ACETAMINOPHEN [[place] 1 each PO Q6H PRN #10 tablet 10/29/17 Unknown Rx 5-325 Tablet] ED Physical Exam - General Limitations: No Limitations General appearance: alert, in no apparent distress - Head Head exam: Present: atraumatic, normocephalic - Eye Eye exam: Present: normal appearance, PERRL, EOMI - ENT ENT exam: Present: mucous membranes moist - Neck Neck exam: Present: normal inspection - Respiratory Respiratory exam: Present: normal lung sounds bilaterally. Absent: respiratory distress - Cardiovascular Cardiovascular Exam: Present: regular rate, normal rhythm. Absent: systolic murmur, diastolic murmur, rubs, gallop - GI/Abdominal GI/Abdominal exam: Present: soft, tenderness (TTP right lower quadrant), normal bowel sounds. Absent: distended - Rectal Rectal exam: Present: deferred - Extremities Exam Extremities exam: Present: normal inspection - Back Exam Back exam: Present: normal inspection - Neurological Exam Neurological exam: Present: alert, oriented X3, CN II-XII intact. Absent: motor sensory deficit - Psychiatric Psychiatric exam: Present: normal affect, normal mood - Skin Skin exam: Present: warm, dry, intact, normal color. Absent: rash ED Course Vital Signs 10/28/17 10/28/17 10/28/17 20:04 20:16 23:01 Temperature 98.2 F 98.2 F Pulse Rate 87 83 Respiratory 16 18 Rate Blood Pressure 118/80 118/80 137/90 Blood Pressure [Left] O2 Sat by Pulse 98 99 Oximetry 10/28/17 10/29/17 23:19 01:00 Temperature 98 F Pulse Rate 88 68 Respiratory 15 16 Rate Blood Pressure 127/81 Blood Pressure 137/90 [Left] O2 Sat by Pulse 100 100 Oximetry ED Medical Decision Making - Lab Data Result diagrams: 10/28/17 20:26 10/28/17 20:26 - Medical Decision Making Discussed results with the patient Patient given liter IV fluid and insulin IV for her elevated glucose levels Patient had relief of pain with IV pain medications Critical care attestation.: If time is entered above; I have spent that time in minutes in the direct care of this critically ill patient, excluding procedure time. ED Disposition Clinical Impression: Abdominal pain Disposition: -01 TO HOME OR SELFCARE Is pt being admited?: No Does the pt Need Aspirin: No Condition: Stable Instructions: Abdominal Pain (ED) Additional Instructions: Return if worse Prescriptions: HYDROcodone/ACETAMINOPHEN [[place] 5-325 Tablet] 1 each PO Q6H PRN #10 tablet PRN Reason: Pain , Severe (7-10) Referrals: PRIMARY CARE, [Primary Care Provider] - 3-5 Days SALLY MORAN MD [Staff Physician] - 3-5 Days [facility] [Outside] - 3-5 Days [facility] [Outside] - 3-5 Days Time of Disposition: 01:52
[2017-10-29] MEDS ORDERED: NACL 0.9% 1000 ML 1,000 ML IV ONE (01:54)
[2017-10-29] MEDS ORDERED: NORCO 7.5/325 PO ONE (02:25)
[2017-10-29 03:04] VITALS: BP 110/64
== END 2017-10-29 03:33 | disposition home or self-care (01) ==
LOC: ED 20:05
DX: E11.65 Type 2 diabetes mellitus with hyperglycemia (principal); R10.31 Right lower quadrant pain; Z88.5 Allergy status to narcotic agent; Z88.6 Allergy status to analgesic agent; Z87.442 Personal history of urinary calculi; Z79.4 Long term (current) use of insulin; Z90.49 Acquired absence of other specified parts of digestive tract
CPT/HCPCS: 36415; 74176; 80053; 81001; 82805; 82962; 83690; 84703; 85025; 96361; 96374; 96375; 96376; 99284; J1170; J1200; J2405; J7030; J1815

== ENCOUNTER 2018-09-10 22:03 | Inpatient (IN) | payer MEDICAID ==
--- NOTE | 2018-09-10 22:20 | Emergency Department Report ---
Blank Doc - Documentation Documentation: This is a 33-year-old female that presents with generalized body aches, right flank pain and headache. This initial assessment/diagnostic orders/clinical plan/treatment(s) is/are subject to change based on patient's health status, clinical progression and re- assessment by fellow clinical providers in the ED. Further treatment and workup at subsequent clinical providers discretion. Patient/guardians urged not to elope from the ED as their condition may be serious if not clinically assessed and managed. Initial orders include: 1- Patient sent to MAIN ED for further evaluation and treatment 2- labs 3- UA
[2018-09-10] MEDS ORDERED: NACL 0.9% 1000 ML 1,000 ML IV ONE ×2 (22:57)
[2018-09-10] MEDS ORDERED: ZOFRAN IV ONE (22:57)
[2018-09-10] MEDS ORDERED: HumuLIN R IV ONE (22:57)
[2018-09-10 23:20] LABS: Basophils % (Auto) 0.6 % (0.0-1.8); Eosinophils # (Auto) 0.1 K/mm3 (0.0-0.4); Eosinophils % (Auto) 1.7 % (0.0-4.3); Hematocrit 34.9 % (30.3-42.9); Hemoglobin 11.5 gm/dl (10.1-14.3); Lymphocytes # (Auto) 1.3 K/mm3 (1.2-5.4); Lymphocytes % (Auto) 19.8 % (13.4-35.0); Mean Corpuscular HGB Conc 33 % (30-34); Mean Corpuscular Volume 76 fl (79-97); Monocytes # (Auto) 0.4 K/mm3 (0.0-0.8); Monocytes % (Auto) 6.1 % (0.0-7.3); Platelet Count 192 K/mm3 (140-440); Red Blood Count 4.57 M/mm3 (3.65-5.03); Red Cell Distribution Width 15.2 % (13.2-15.2)
[2018-09-10 23:26] LABS: Alanine Aminotransferase 16 units/L (7-56); Albumin 3.7 g/dL (3.9-5); BUN/Creatinine Ratio 12; Blood Urea Nitrogen 14 mg/dL (7-17); Calcium 9.5 mg/dL (8.4-10.2); Hemolysis Index 8
[2018-09-10] MEDS ORDERED: DILAUDID IV ONE (23:29)
[2018-09-10] MEDS ORDERED: BENADRYL IV ONE (23:29)
[2018-09-10] MEDS ORDERED: PEPCID IV ONE (23:29)
[2018-09-10 23:33] LABS: Free T4 (Free Thyroxine) 0.87 ng/dL (0.76-1.46)
[2018-09-11] LABS: Bacteria,Urine 1+ /HPF (Negative); Bilirubin,Urine NEG (Negative); Blood,Urine SM (Negative); Color,Urine Yellow (Yellow); Protein,Urine <15 mg/dL mg/dL (Negative); Urobilinogen,Urine < 2.0 mg/dL (<2.0)
[2018-09-11] MEDS ORDERED: ROCEPHIN/NS 1 GM/50 ML 1 GM/50 ML BAG IV SCH
[2018-09-11] MEDS ORDERED: DILAUDID IV ONE (00:43)
[2018-09-11] MEDS ORDERED: ROCEPHIN/NS 1 GM/50 ML 1 GM/50 ML BAG IV ONE (00:43)
--- NOTE | 2018-09-11 01:03 | Emergency Department Report ---
ED Abdominal Pain HPI - General Chief Complaint: Abdominal Pain Stated Complaint: BACK PAIN/HEADACHES/HIGH BLOOD GLUCOSE Time Seen by Provider: 09/10/18 22:18 Source: patient Mode of arrival: Ambulatory Limitations: No Limitations - History of Present Illness Initial Comments: 33-year-old female with a past medical history diabetes on insulin, kidney st ones requiring nephrostomy tube placement, stents, and associated hydronephrosis, thyroid disease, and previous cholecystectomy presents to the hospital with complaints of headache, right flank pain, nausea, vomiting, and elevated blood glucose 2 days. Patient states she's been compliant with her insulin and did take it today. She complains of 8/10 right flank and right lower quadrant pain described as a stabbing sensation that is constant, worse with palpation and movement. No relieving factors reported. Patient has been unable to tolerate any food or liquids for the last 2 days. She denies diarrhea, dysuria, hematochezia, hematemesis, melena, hematuria, or fever. She also states she noticed a scaly pruritic rash to the left side of her neck and states she has worn the same necklace for several years without any contact dermatitis. PMD: Dr. Villegas Severity scale (0 -10): 8 - Related Data Home Medications Medication Instructions Recorded Confirmed Last Taken Insulin Glargine,Hum.rec.anlog 26 units SUB-Q QPM 04/05/17 04/05/17 Unknown [Basaglar Kwikpen U-100] Insulin Lispro [HumaLOG VIAL] 9 units SUB-Q AC 04/05/17 04/05/17 Unknown Methimazole [Tapazole] 10 mg PO QDAY 04/05/17 04/05/17 Unknown Previous Rx's Medication Instructions Recorded Last Taken Type Ondansetron [Zofran Odt] 4 mg PO Q4H PRN #30 tab.rapdis 04/07/17 Unknown Rx oxyCODONE /ACETAMINOPHEN [Percocet 1 tab PO Q4HR #12 tab 04/07/17 Unknown Rx 5/325] HYDROcodone/ACETAMINOPHEN [[place] 1 each PO Q6H PRN #10 tablet 10/29/17 Unknown Rx 5-325 Tablet] Ondansetron [Zofran Odt] 4 mg PO Q8HR PRN #10 tab.rapdis 10/29/17 Unknown Rx Allergies Allergy/AdvReac Type Severity Reaction Status Date / Time ketorolac tromethamine Allergy Severe Hives Verified 08/10/16 21:06 [From Toradol] ketorolac [From Toradol] Allergy Itching Verified 04/04/17 18:50 morphine Allergy Itching Verified 04/04/17 18:50 ED Review of Systems ROS: Stated complaint: BACK PAIN/HEADACHES/HIGH BLOOD GLUCOSE Other details as noted in HPI Comment: All other systems reviewed and negative ED Past Medical Hx - Past Medical History Previous Medical History?: Yes Hx Congestive Heart Failure: No Hx Diabetes: Yes Hx Deep Vein Thrombosis: No Hx Renal Disease: Yes (kidney stones) Hx Kidney Stones: Yes (nephrostomt tube, hydronephrosis) Hx Asthma: No Hx COPD: No Hx Tuberculosis: No Hx HIV: No Additional medical history: THYROID, 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 - Surgical History Past Surgical History?: Yes Hx Pacemaker: No Hx Internal Defibrillator: No Hx Cholecystectomy: Yes Additional Surgical History: NEPHOSTOMY STENTS, - Social History Smoking Status: Never Smoker Substance Use Type: None - Medications Home Medications: Home Medications Medication Instructions Recorded Confirmed Last Taken Type Insulin Glargine,Hum.rec.anlog 26 units SUB-Q QPM 04/05/17 04/05/17 Unknown History [Basaglar Kwikpen U-100] Insulin Lispro [HumaLOG VIAL] 9 units SUB-Q AC 04/05/17 04/05/17 Unknown History Methimazole [Tapazole] 10 mg PO QDAY 04/05/17 04/05/17 Unknown History Ondansetron [Zofran Odt] 4 mg PO Q4H PRN #30 tab.rapdis 04/07/17 Unknown Rx oxyCODONE /ACETAMINOPHEN [Percocet 1 tab PO Q4HR #12 tab 04/07/17 Unknown Rx 5/325] HYDROcodone/ACETAMINOPHEN [[place] 1 each PO Q6H PRN #10 tablet 10/29/17 Unknown Rx 5-325 Tablet] Ondansetron [Zofran Odt] 4 mg PO Q8HR PRN #10 tab.rapdis 10/29/17 Unknown Rx ED Physical Exam - General Limitations: No Limitations - Other Other exam information: General: No limitations, patient is alert in no acute distress Head exam: Atraumatic, normocephalic Eyes exam: Normal appearance, pupils equal reactive to light, extraocular movements intact ENT: Dry mucous membranes Neck exam: Normal inspection, full range of motion, no meningismus nontender Respiratory exam: Clear to auscultation bilateral, no wheezes, rales, crackles Cardiovascular: Normal rate and rhythm, normal heart sounds Abdomen: Soft, nondistended, generalized abdominal tenderness on palpation, with normal bowel sounds, no rebound, or guarding Extremity: Full range of motion normal inspection no deformity Back: Normal Inspection, full range of motion, right flank tenderness Neurologic: Alert, oriented x3, cranial nerves intact, no motor or sensory deficit Psychiatric: normal affect, normal mood Skin: Scaly demarcated plaque-like rash to left lower neck/upper chest area ED Course Vital Signs 09/10/18 09/11/18 09/11/18 22:19 00:22 00:30 Temperature 98 F Pulse Rate 105 H 93 H 89 Respiratory 22 18 18 Rate Blood Pressure 126/80 Blood Pressure 133/84 [Left] O2 Sat by Pulse 97 100 99 Oximetry ED Medical Decision Making - Lab Data Result diagrams: 09/10/18 22:43 09/10/18 22:43 Lab Results 09/10/18 09/10/18 09/10/18 Range/Units 22:24 22:43 22:43 WBC 6.4 (4.5-11.0) K/mm3 RBC 4.57 (3.65-5.03) M/mm3 Hgb 11.5 (10.1-14.3) gm/dl Hct 34.9 (30.3-42.9) % MCV 76 L (79-97) fl MCH 25 L (28-32) pg MCHC 33 (30-34) % RDW 15.2 (13.2-15.2) % Plt Count 192 (140-440) K/mm3 Lymph % (Auto) 19.8 (13.4-35.0) % Towns % (Auto) 6.1 (0.0-7.3) % Eos % (Auto) 1.7 (0.0-4.3) % Baso % (Auto) 0.6 (0.0-1.8) % Lymph # 1.3 (1.2-5.4) K/mm3 Towns # 0.4 (0.0-0.8) K/mm3 Eos # 0.1 (0.0-0.4) K/mm3 Baso # 0.0 (0.0-0.1) K/mm3 Seg Neutrophils % 71.8 H (40.0-70.0) % Seg Neutrophils # 4.6 (1.8-7.7) K/mm3 VBG pH (7.320-7.420) Sodium 133 L (137-145) mmol/L Potassium 4.4 (3.6-5.0) mmol/L Chloride 95.8 L (98-107) mmol/L Carbon Dioxide 26 (22-30) mmol/L Anion Gap 16 mmol/L BUN 14 (7-17) mg/dL Creatinine 1.2 (0.7-1.2) mg/dL Estimated GFR > 60 ml/min BUN/Creatinine Ratio 12 % Glucose 501 H* (65-100) mg/dL POC Glucose 482 H (70-105) Calcium 9.5 (8.4-10.2) mg/dL Total Bilirubin 0.30 (0.1-1.2) mg/dL AST 16 (5-40) units/L ALT 16 (7-56) units/L Alkaline Phosphatase 78 (35-129) units/L Total Protein 7.6 (6.3-8.2) g/dL Albumin 3.7 L (3.9-5) g/dL Albumin/Globulin Ratio 0.9 % Lipase 10 L (13-60) units/L TSH (0.270-4.200) mlU/mL Free T4 (0.76-1.46) ng/dL HCG, Qual (Negative) Urine Color (Yellow) Urine Turbidity (Clear) Urine pH (5.0-7.0) Ur Specific [place] (1.003-1.030) Urine Protein (Negative) mg/dL Urine Glucose (UA) (Negative) mg/dL Urine Ketones (Negative) mg/dL Urine Blood (Negative) Urine Nitrite (Negative) Urine Bilirubin (Negative) Urine Urobilinogen (<2.0) mg/dL Ur Leukocyte Esterase (Negative) Urine WBC (Auto) (0.0-6.0) /HPF Urine RBC (Auto) (0.0-6.0) /HPF U Epithel Cells (Auto) (0-13.0) /HPF Urine Bacteria (Auto) (Negative) /HPF Urine Yeast (Budding) /HPF 09/10/18 09/10/18 09/10/18 Range/Units 22:43 22:43 22:43 WBC (4.5-11.0) K/mm3 RBC (3.65-5.03) M/mm3 Hgb (10.1-14.3) gm/dl Hct (30.3-42.9) % MCV (79-97) fl MCH (28-32) pg MCHC (30-34) % RDW (13.2-15.2) % Plt Count (140-440) K/mm3 Lymph % (Auto) (13.4-35.0) % Towns % (Auto) (0.0-7.3) % Eos % (Auto) (0.0-4.3) % Baso % (Auto) (0.0-1.8) % Lymph # (1.2-5.4) K/mm3 Towns # (0.0-0.8) K/mm3 Eos # (0.0-0.4) K/mm3 Baso # (0.0-0.1) K/mm3 Seg Neutrophils % (40.0-70.0) % Seg Neutrophils # (1.8-7.7) K/mm3 VBG pH 7.360 (7.320-7.420) Sodium (137-145) mmol/L Potassium (3.6-5.0) mmol/L Chloride (98-107) mmol/L Carbon Dioxide (22-30) mmol/L Anion Gap mmol/L BUN (7-17) mg/dL Creatinine (0.7-1.2) mg/dL Estimated GFR ml/min BUN/Creatinine Ratio % Glucose (65-100) mg/dL POC Glucose (70-105) Calcium (8.4-10.2) mg/dL Total Bilirubin (0.1-1.2) mg/dL AST (5-40) units/L ALT (7-56) units/L Alkaline Phosphatase (35-129) units/L Total Protein (6.3-8.2) g/dL Albumin (3.9-5) g/dL Albumin/Globulin Ratio % Lipase (13-60) units/L TSH 0.634 (0.270-4.200) mlU/mL Free T4 0.87 (0.76-1.46) ng/dL HCG, Qual Negative (Negative) Urine Color (Yellow) Urine Turbidity (Clear) Urine pH (5.0-7.0) Ur Specific [place] (1.003-1.030) Urine Protein (Negative) mg/dL Urine Glucose (UA) (Negative) mg/dL Urine Ketones (Negative) mg/dL Urine Blood (Negative) Urine Nitrite (Negative) Urine Bilirubin (Negative) Urine Urobilinogen (<2.0) mg/dL Ur Leukocyte Esterase (Negative) Urine WBC (Auto) (0.0-6.0) /HPF Urine RBC (Auto) (0.0-6.0) /HPF U Epithel Cells (Auto) (0-13.0) /HPF Urine Bacteria (Auto) (Negative) /HPF Urine Yeast (Budding) /HPF 09/10/18 09/10/18 09/11/18 Range/Units 23:16 Unknown 01:46 WBC (4.5-11.0) K/mm3 RBC (3.65-5.03) M/mm3 Hgb (10.1-14.3) gm/dl Hct (30.3-42.9) % MCV (79-97) fl MCH (28-32) pg MCHC (30-34) % RDW (13.2-15.2) % Plt Count (140-440) K/mm3 Lymph % (Auto) (13.4-35.0) % Towns % (Auto) (0.0-7.3) % Eos % (Auto) (0.0-4.3) % Baso % (Auto) (0.0-1.8) % Lymph # (1.2-5.4) K/mm3 Towns # (0.0-0.8) K/mm3 Eos # (0.0-0.4) K/mm3 Baso # (0.0-0.1) K/mm3 Seg Neutrophils % (40.0-70.0) % Seg Neutrophils # (1.8-7.7) K/mm3 VBG pH (7.320-7.420) Sodium (137-145) mmol/L Potassium (3.6-5.0) mmol/L Chloride (98-107) mmol/L Carbon Dioxide (22-30) mmol/L Anion Gap mmol/L BUN (7-17) mg/dL Creatinine (0.7-1.2) mg/dL Estimated GFR ml/min BUN/Creatinine Ratio % Glucose (65-100) mg/dL POC Glucose 496 H 300 H (70-105) Calcium (8.4-10.2) mg/dL Total Bilirubin (0.1-1.2) mg/dL AST (5-40) units/L ALT (7-56) units/L Alkaline Phosphatase (35-129) units/L Total Protein (6.3-8.2) g/dL Albumin (3.9-5) g/dL Albumin/Globulin Ratio % Lipase (13-60) units/L TSH (0.270-4.200) mlU/mL Free T4 (0.76-1.46) ng/dL HCG, Qual (Negative) Urine Color Yellow (Yellow) Urine Turbidity Slightly-cloudy (Clear) Urine pH 6.0 (5.0-7.0) Ur Specific [place] 1.024 (1.003-1.030) Urine Protein <15 mg/dl (Negative) mg/dL Urine Glucose (UA) >=500 (Negative) mg/dL Urine Ketones Neg (Negative) mg/dL Urine Blood Sm (Negative) Urine Nitrite Neg (Negative) Urine Bilirubin Neg (Negative) Urine Urobilinogen < 2.0 (<2.0) mg/dL Ur Leukocyte Esterase Mod (Negative) Urine WBC (Auto) 97.0 H (0.0-6.0) /HPF Urine RBC (Auto) 6.0 (0.0-6.0) /HPF U Epithel Cells (Auto) 6.0 (0-13.0) /HPF Urine Bacteria (Auto) 1+ (Negative) /HPF Urine Yeast (Budding) Few /HPF - Radiology Data Radiology results: report reviewed PROCEDURE: CT ABDOMEN PELVIS W CON TECHNIQUE: Computerized axial tomography of the abdomen and pelvis was performed after the IV injection of iodinated nonionic contrast. HISTORY: gen abd pain greatest in rlq, dm, n,v COMPARISONS: None . FINDINGS: Visualized lower thorax: No significant abnormality. Liver: Normal size and attenuation. Spleen: The size is normal. There are some calcifications within the area of hypoattenuation within the anterior medial slightly. Gallbladder and biliary system: Gallbladder is absent. No dilatation of the bili joellen ductal system. Pancreas: Normal. Adrenals: Normal. Kidneys: The left kidney has a normal placement within the left retroperitoneal region. Mild left extrarenal pelvis and slight hydroureter proximally. No obstructing stone is identified. The right kidney is identified in the upper pelvis. No hydronephrosis. GI tract: The stomach is normal. The small bowel has normal appearance. No obstruction is seen. The cecum and appendix region are normal. The colon is normal. . Lymph nodes and mesentery: Normal. Vasculature: Normal.. Bladder: Normal. Reproductive organs: The uterus is slightly enlarged. Dominant 2 cm cyst left ovary. Minimal fluid lower pelvis. Peritoneum: Minimal fluid lower pelvis. Musculoskeletal structures: No evidence of an acute osseous abnormality. Other: None . IMPRESSION: There is no evidence of intestinal obstruction. No ileus or enteritis. The appendix region is normal. The appendix is not clearly visualized separate from the remainder the bowel. The right kidney is identified in the upper pelvis. No renal obstruction is identified. Uterus is enlarged. There is a dominant 2 cm cyst on the left ovary. Normal fluid in the lower pelvis is noted. . PROCEDURE: CT HEAD/BRAIN WO CON TECHNIQUE: Computerized tomography of the head was performed without contrast material. HISTORY: headache COMPARISONS: None . FINDINGS: Skull and scalp: Normal . Paranasal sinuses: Normal . Ventricles and subarachnoid spaces: Normal . Cerebrum: No evidence of hemorrhage, acute infarction or mass . Cerebellum and brainstem: No evidence of hemorrhage, acute infarction or mass . Vasculature: Normal . Other: None . IMPRESSION: No evidence of hemorrhage, acute infarction or mass . - Medical Decision Making Patient does have some improvement with ED treatment of Dilaudid, Benadryl, and Zofran but continues to feel ill. She will be admitted to the hospital for insulin dependent diabetes with uncontrolled sugars and associated UTI and by mouth intolerance. Hospitalist informed for admission. CT without acute findings I suspect that patient's skin rash at her left neck secondary to ring worm versus contact dermatitis - Differential Diagnosis DKA, pancreatitis, gastroenteritis, gastroparesis, renal colic, ringworm, Critical Care Time: No Critical care attestation.: If time is entered above; I have spent that time in minutes in the direct care of this critically ill patient, excluding procedure time. ED Disposition Clinical Impression: Uncontrolled diabetes mellitus, Insulin dependent diabetes mellitus, UTI (urinary tract infection), Generalized abdominal pain, Nausea & vomiting, Rash Disposition: OP ADMIT IP TO THIS HOSP Is pt being admited?: Yes Condition: Stable Time of Disposition: 02:10 (Dr. Booker/Hospitalist)
--- NOTE | 2018-09-11 01:11 | Cat Scan Report ---
PROCEDURE: CT HEAD/BRAIN WO CON TECHNIQUE: Computerized tomography of the head was performed without contrast material. HISTORY: headache COMPARISONS: None . FINDINGS: Skull and scalp: Normal . Paranasal sinuses: Normal . Ventricles and subarachnoid spaces: Normal . Cerebrum: No evidence of hemorrhage, acute infarction or mass . Cerebellum and brainstem: No evidence of hemorrhage, acute infarction or mass . Vasculature: Normal . Other: None . IMPRESSION: No evidence of hemorrhage, acute infarction or mass . This document is electronically signed by Guille Lopez MD., September 11 2018 01:09:44 AM ET
[2018-09-11] MEDS ORDERED: BENADRYL IV ONE (01:41)
--- NOTE | 2018-09-11 02:05 | Cat Scan Report ---
PROCEDURE: CT ABDOMEN PELVIS W CON TECHNIQUE: Computerized axial tomography of the abdomen and pelvis was performed after the IV inject ion of iodinated nonionic contrast. HISTORY: gen abd pain greatest in rlq, dm, n,v COMPARISONS: None . FINDINGS: Visualized lower thorax: No significant abnormality. Liver: Normal size and attenuation. Spleen: The size is normal. There are some calcifications within the area of hypoattenuation within t he anterior medial slightly. Gallbladder and biliary system: Gallbladder is absent. No dilatation of the biliary ductal system. Pancreas: Normal. Adrenals: Normal. Kidneys: The left kidney has a normal placement within the left retroperitoneal region. Mild left ext rarenal pelvis and slight hydroureter proximally. No obstructing stone is identified. The right kidne y is identified in the upper pelvis. No hydronephrosis. GI tract: The stomach is normal. The small bowel has normal appearance. No obstruction is seen. The cecum and appendix region are normal. The colon is normal. . Lymph nodes and mesentery: Normal. Vasculature: Normal.. Bladder: Normal. Reproductive organs: The uterus is slightly enlarged. Dominant 2 cm cyst left ovary. Minimal fluid lo wer pelvis. Peritoneum: Minimal fluid lower pelvis. Musculoskeletal structures: No evidence of an acute osseous abnormality. Other: None . IMPRESSION: There is no evidence of intestinal obstruction. No ileus or enteritis. The appendix jennifer on is normal. The appendix is not clearly visualized separate from the remainder the bowel. The right kidney is identified in the upper pelvis. No renal obstruction is identified. Uterus is enlarged. There is a dominant 2 cm cyst on the left ovary. Normal fluid in the lower pelvis is noted. . This document is electronically signed by Sujey Marshall DO., September 11 2018 02:03:49 AM ET
[2018-09-11] MEDS ORDERED: NACL 0.9% 1000 ML 1,000 ML IV ONE (02:10)
[2018-09-11] MEDS ORDERED: ZOFRAN IV PRN (02:26)
[2018-09-11] MEDS ORDERED: D50W (25GM) Syringe IV PRN (02:26)
[2018-09-11] MEDS ORDERED: TYLENOL PO PRN (02:26)
[2018-09-11] MEDS ORDERED: PERCOCET 5/325 PO PRN (02:26)
--- NOTE | 2018-09-11 02:29 | History and Physical Report ---
History of Present Illness Date of examination: 09/11/18 History of present illness: 33 -year-old woman with a history of diabetes , hypothyroidism comes to the emergency room with complaints of nausea and vomiting,decrease oral intake. Also complained of right flank pain as sharp, constant, intensity 5/10, radiating to the back, she cannot identify exacerbating factor. Also admits to urinary frequency and lower abdominal tenderness, no dysuria Review Of Systems: Constitutional: no weight loss Ears, eyes, nose, mouth and throat: no nasal congestion, no nasal discharge, no sinus pressure, blurry vision, diplopia Neck: No neck pain or rigidity. Cardiovascular: No chest pain, palpitations Respiratory: No shortness of breath, cough Gastrointestinal: No abdominal pain, hematochezia Genitourinary : no dysuria, frequency , hematuria Musculoskeletal: no muscle ache Integumentary: no rash, no pruritis Neurological: no parathesias, focal weakness Endocrine: no cold or heat intolerance, no polyuria or polydipsia Hematologic/Lymphatic: no easy bruising, no easy bleeding, no gland swelling Allergic/Immunologic: no urticaria, no angioedem PAST MEDICAL HISTORY:diabetes , hypothyroidism PAST SURGICAL HISTORY: Cystectomy, SOCIAL HISTORY: Denies alcohol, drugs, tobacco FAMILY HISTORY: Hypertension, diabetes Medications and Allergies Allergies Allergy/AdvReac Type Severity Reaction Status Date / Time ketorolac tromethamine Allergy Severe Hives Verified 08/10/16 21:06 [From Toradol] ketorolac [From Toradol] Allergy Itching Verified 04/04/17 18:50 morphine Allergy Itching Verified 04/04/17 18:50 Home Medications Medication Instructions Recorded Confirmed Last Taken Type Insulin Glargine,Hum.rec.anlog 26 units SUB-Q QPM 04/05/17 04/05/17 Unknown His tory [Basaglar Kwikpen U-100] Insulin Lispro [HumaLOG VIAL] 9 units SUB-Q AC 04/05/17 04/05/17 Unknown History Methimazole [Tapazole] 10 mg PO QDAY 04/05/17 04/05/17 Unknown History Ondansetron [Zofran Odt] 4 mg PO Q4H PRN #30 tab.rapdis 04/07/17 Unknown Rx oxyCODONE /ACETAMINOPHEN [Percocet 1 tab PO Q4HR #12 tab 04/07/17 Unknown Rx 5/325] HYDROcodone/ACETAMINOPHEN [[place] 1 each PO Q6H PRN #10 tablet 10/29/17 Unknown Rx 5-325 Tablet] Ondansetron [Zofran Odt] 4 mg PO Q8HR PRN #10 tab.rapdis 10/29/17 Unknown Rx Active Meds: Active Medications Sodium Chloride (Nacl 0.9% 1000 Ml) 1,000 mls @ 999 mls/hr IV BOLUS ONE Stop: 09/11/18 03:10 Exam - Physical Exam Narrative exam: Gen. appearance: Patient lying in bed in no acute distress HEENT: Normocephalic/atraumatic, pupils equal round reactive to light, extra occular movement intact, no scleral icterus, no JVD or thyromegaly or nodule, neck is supple, mucous membrane moist, no erythema or exudate Heart: S1-S2, regular rate and rhythm Lungs: Clear to auscultation bilateral breathing comfortable Abdomen: Positive bowel sounds, nontender, nondistended, no organomegaly Extremities: right CVA tenderness, No edema, cyanosis, clubbing Neuro:: Oriented 3 , cranial nerves II-12 intact, speech, motor intact Skin: No rash, nodules, warm dry - Constitutional Vitals: Temp Pulse Resp BP Pulse Ox 98 F 89 18 126/80 99 09/10/18 22:19 09/11/18 00:30 09/11/18 00:30 09/11/18 00:30 09/11/18 00:30 Results - Labs CBC & Chem 7: 09/10/18 22:43 09/10/18 22:43 Labs: Abnormal lab results 09/10/18 09/10/18 09/10/18 Range/Units 22:24 22:43 22:43 MCV 76 L (79-97) fl MCH 25 L (28-32) pg Seg Neutrophils % 71.8 H (40.0-70.0) % Sodium 133 L (137-145) mmol/L Chloride 95.8 L (98-107) mmol/L Glucose 501 H* (65-100) mg/dL POC Glucose 482 H (70-105) Albumin 3.7 L (3.9-5) g/dL Lipase 10 L (13-60) units/L Urine WBC (Auto) (0.0-6.0) /HPF 09/10/18 09/10/18 09/11/18 Range/Units 23:16 Unknown 01:46 MCV (79-97) fl MCH (28-32) pg Seg Neutrophils % (40.0-70.0) % Sodium (137-145) mmol/L Chloride (98-107) mmol/L Glucose (65-100) mg/dL POC Glucose 496 H 300 H (70-105) Albumin (3.9-5) g/dL Lipase (13-60) units/L Urine WBC (Auto) 97.0 H (0.0-6.0) /HPF Assessment and Plan Assessment urinary tract infection Diabetes uncontrolled Hyperthyroidism Plan admit to medicine monitor blood sugar pain medication, DVT prophylaxis
[2018-09-11] MEDS ORDERED: HumaLOG SUB-Q SCH (07:30)
[2018-09-11] MEDS ORDERED: REGLAN IV PRN (07:56)
--- NOTE | 2018-09-11 07:56 | Progress Note ---
Assessment and Plan Assessment and plan: Patient is a 33 yo woman with a history of Type 1 DM, DKA, kidney stones with hydronephrosis s/p nephrostomy tubes/ureteral stents, chronic renal vein thrombosis was on Eliquis in the past and hyperthyroidism who presented to [facility] ED with generalized body aches, right flank pains, headaches, sore throat and n/v. She was admitted for complicated UTI with inability to take oral abx. * CT abd/pelvis with IV contrast IMPRESSION: There is no evidence of intestinal obstruction. No ileus or enteritis. The appendix region is normal. The appendix is not clearly visualized separate from the remainder the bowel. The right kidney is identified in the upper pelvis. No renal obstruction is identified. Uterus is enlarged. There is a dominant 2 cm cyst on the left ovary. Normal fluid in the lower pelvis is noted. . * CT head without contrast IMPRESSION: No evidence of hemorrhage, acute infarction or mass . Acute gastritis: treat with IVFs, PPI and iv reglan Urinary tract infection: treat with iv rocephin, follow urine cultures Type I Diabetes mellitius uncontrolled: continue insulin despite poor oral intake, use SSI, and reduce long acting insulin by have, ordered A1c Hyperthyroidism: TFT ok continue home regimen History of renal vein thrombosis: Dr. Jackson Child in [place] took her off Eliquis> 1year ago Tinea infection left neck and back area: add Lotrimin topical, improve bg should help Disposition: continue inpatient, await urine cultures which says received in micro lab, once tolerating and urine culture results and blood glucose under control then d/c home I completed the home reconciliation: hold home insulin, restarted tapezole Admitted today, prolonged inpatient services 31 minutes History Interval history: Patient was seen and examined. Follow-up on current diagnosis n/v/sainz. No overnight events reported to me. Patient denies any chest pain, shortness breath. Imaging, nursing note, chart, labs and old chart reviewed. Discussed with patient. Hospitalist Physical - Physical exam Narrative exam: Gen: WDWN, NAD, Awake, Alert, Orientated HEENT: NCAT, EOMI, PERRL, OP Clear Neck: supple, no adenopathy, no thyromegaly, no JVD CVS/Heart: RRR, normal S1S2, pulses present bilaterally Chest/Lungs: CTA B, Symmetrical chest expansion, good air entry bilaterally GI/Abdomen: soft, NTND, good bowel sounds, no guarding or rebound /Bladder: no suprapubic tenderness, no CVA or paraspinal tenderness Extermity/Skin: no c/c/e, left anterior base of neck coin shape plaque MSK: FROM x 4 Neuro: CN 2-12 grossly intact, no new focal deficits Psych: calm - Constitutional Vitals: Temp Pulse Resp BP Pulse Ox 98 F 85 20 132/82 90 09/10/18 22:19 09/11/18 04:00 09/11/18 05:29 09/11/18 04:30 09/11/18 05:29 Results - Labs CBC & Chem 7: 09/10/18 22:43 09/10/18 22:43 Labs: Laboratory Last Values WBC 6.4 K/mm3 (4.5-11.0) 09/10/18 22:43 RBC 4.57 M/mm3 (3.65-5.03) 09/10/18 22:43 Hgb 11.5 gm/dl (10.1-14.3) 09/10/18 22:43 Hct 34.9 % (30.3-42.9) 09/10/18 22:43 MCV 76 fl (79-97) L 09/10/18 22:43 MCH 25 pg (28-32) L 09/10/18 22:43 MCHC 33 % (30-34) 09/10/18 22:43 RDW 15.2 % (13.2-15.2) 09/10/18 22:43 Plt Count 192 K/mm3 (140-440) 09/10/18 22:43 Lymph % (Auto) 19.8 % (13.4-35.0) 09/10/18 22:43 [place] % (Auto) 6.1 % (0.0-7.3) 09/10/18 22:43 Eos % (Auto) 1.7 % (0.0-4.3) 09/10/18 22:43 Baso % (Auto) 0.6 % (0.0-1.8) 09/10/18 22:43 Lymph # 1.3 K/mm3 (1.2-5.4) 09/10/18 22:43 [place] # 0.4 K/mm3 (0.0-0.8) 09/10/18 22:43 Eos # 0.1 K/mm3 (0.0-0.4) 09/10/18 22:43 Baso # 0.0 K/mm3 (0.0-0.1) 09/10/18 22:43 Seg Neutrophils % 71.8 % (40.0-70.0) H 09/10/18 22:43 Seg Neutrophils # 4.6 K/mm3 (1.8-7.7) 09/10/18 22:43 VBG pH 7.360 (7.320-7.420) 09/10/18 22:43 Sodium 133 mmol/L (137-145) L 09/10/18 22:43 Potassium 4.4 mmol/L (3.6-5.0) 09/10/18 22:43 Chloride 95.8 mmol/L (98-107) L 09/10/18 22:43 Carbon Dioxide 26 mmol/L (22-30) 09/10/18 22:43 16 mmol/L 09/10/18 22:43 BUN 14 mg/dL (7-17) 09/10/18 22:43 1.2 mg/dL (0.7-1.2) 09/10/18 22:43 Estimated GFR > 60 ml/min 09/10/18 22:43 12 % 09/10/18 22:43 Glucose 501 mg/dL (65-100) H* 09/10/18 22:43 POC Glucose 300 (70-105) H 09/11/18 01:46 Calcium 9.5 mg/dL (8.4-10.2) 09/10/18 22:43 0.30 mg/dL (0.1-1.2) 09/10/18 22:43 AST 16 units/L (5-40) 09/10/18 22:43 ALT 16 units/L (7-56) 09/10/18 22:43 78 units/L (35-129) 09/10/18 22:43 7.6 g/dL (6.3-8.2) 09/10/18 22:43 3.7 g/dL (3.9-5) L 09/10/18 22:43 0.9 % 09/10/18 22:43 10 units/L (13-60) L 09/10/18 22:43 TSH 0.634 mlU/mL (0.270-4.200) 09/10/18 22:43 Free T4 0.87 ng/dL (0.76-1.46) 09/10/18 22:43 HCG, Qual Negative (Negative) 09/10/18 22:43 Yellow (Yellow) 09/10/18 Unknown Slightly-cloudy (Clear) 09/10/18 Unknown 6.0 (5.0-7.0) 09/10/18 Unknown Ur Specific [place] 1.024 (1.003-1.030) 09/10/18 Unknown <15 mg/dl mg/dL (Negative) 09/10/18 Unknown >=500 mg/dL (Negative) 09/10/18 Unknown Neg mg/dL (Negative) 09/10/18 Unknown Sm (Negative) 09/10/18 Unknown Neg (Negative) 09/10/18 Unknown Neg (Negative) 09/10/18 Unknown < 2.0 mg/dL (<2.0) 09/10/18 Unknown Ur Leukocyte Esterase Mod (Negative) 09/10/18 Unknown 97.0 /HPF (0.0-6.0) H 09/10/18 Unknown 6.0 /HPF (0.0-6.0) 09/10/18 Unknown U Epithel Cells (Auto) 6.0 /HPF (0-13.0) 09/10/18 Unknown 1+ /HPF (Negative) 09/10/18 Unknown Few /HPF 09/10/18 Unknown Active Medications - Current Medications Current Medications: Generic Name Dose Route Start Last Admin Trade Name Freq PRN Reason Stop Dose Admin Acetaminophen 650 mg 09/11/18 02:26 Tylenol PO Q4H PRN Pain MILD(1-3)/Fever >100.5/SAINZ Dextrose 50 ml 09/11/18 02:26 D50w (25gm) Syringe IV PRN PRN Hypoglycemia Enoxaparin Sodium 40 mg 09/11/18 10:00 Lovenox SUB-Q QDAY@1000 MATEO Ceftriaxone Sodium 1 gm in 50 mls @ 100 mls/hr 09/12/18 02:00 Rocephin/Ns 1 Gm/50 Ml IV Q24H [facility] Protocol Insulin Human Lispro 0 unit 09/11/18 07:30 Humalog SUB-Q ACHS [facility] Protocol Ondansetron HCl 4 mg 09/11/18 02:26 Zofran IV Q8H PRN Nausea And Vomiting Oxycodone/Acetaminophen 1 tab 09/11/18 02:26 09/11/18 06:17 Percocet 5/325 PO 1 tab Q6H PRN Administration Pain, Moderate (4-6) Sodium Chloride 10 ml 09/11/18 10:00 Sodium Chloride Flush Syringe 10 Ml IV BID [facility] Sodium Chloride 10 ml 09/11/18 02:26 Sodium Chloride Flush Syringe 10 Ml IV PRN PRN LINE FLUSH
[2018-09-11] MEDS ORDERED: LANTUS SUB-Q SCH ×2 (08:00→22:00)
[2018-09-11] MEDS: LOVENOX SUB-Q SCH (09:49)
[2018-09-11] MEDS: PROTONIX IV SCH (09:50)
[2018-09-11] MEDS: BENADRYL IV PRN ×3 (09:50→22:44)
[2018-09-11] MEDS: DILAUDID IV PRN ×5 (09:50→22:43)
[2018-09-11] MEDS: SODIUM CHLORIDE FLUSH SYRINGE 10 ML IV SCH (09:51)
[2018-09-11] MEDS: HumaLOG SUB-Q SCH ×3 (09:52→21:38)
[2018-09-11] MEDS ORDERED: LOVENOX SUB-Q SCH (10:00)
[2018-09-11] MEDS ORDERED: NON-FORMULARY (Methimazole [Tapazole] 10 MG) PO SCH (10:00)
[2018-09-11] MEDS: LOTRIMIN TP SCH (13:05)
[2018-09-11] MEDS: TAPAZOLE PO SCH (16:38)
[2018-09-11] MEDS: NACL 0.9% 1000 ML 1,000 ML IV SCH (22:52)
[2018-09-12] MEDS: SODIUM CHLORIDE FLUSH SYRINGE 10 ML IV SCH ×2 (00:31→10:03)
[2018-09-12] MEDS: DILAUDID IV PRN ×6 (01:49→17:55)
[2018-09-12] MEDS ORDERED: ROCEPHIN/NS 1 GM/50 ML 1 GM/50 ML BAG IV SCH (02:00)
[2018-09-12] MEDS: HumaLOG SUB-Q SCH ×3 (04:00→16:00)
[2018-09-12] MEDS: LOTRIMIN TP SCH ×2 (04:05→10:05)
[2018-09-12] MEDS: BENADRYL IV PRN ×3 (05:30→17:55)
[2018-09-12 08:14] LABS: Basophils % (Auto) 0.6 % (0.0-1.8); Eosinophils # (Auto) 0.2 K/mm3 (0.0-0.4); Eosinophils % (Auto) 3.9 % (0.0-4.3); Hemoglobin 11.2 gm/dl (10.1-14.3); Lymphocytes # (Auto) 2.1 K/mm3 (1.2-5.4); Lymphocytes % (Auto) 47.6 % (13.4-35.0); Mean Corpuscular HGB Conc 32 % (30-34); Mean Corpuscular Volume 77 fl (79-97); Monocytes # (Auto) 0.4 K/mm3 (0.0-0.8); Monocytes % (Auto) 9.6 % (0.0-7.3); Platelet Count 180 K/mm3 (140-440); Red Blood Count 4.57 M/mm3 (3.65-5.03); Red Cell Distribution Width 15.4 % (13.2-15.2)
[2018-09-12 08:31] LABS: BUN/Creatinine Ratio 9; Blood Urea Nitrogen 8 mg/dL (7-17); Calcium 8.2 mg/dL (8.4-10.2); Hemolysis Index 4
[2018-09-12] MEDS: NACL 0.9% 1000 ML 1,000 ML IV SCH (10:01)
[2018-09-12] MEDS: TAPAZOLE PO SCH (10:02)
[2018-09-12] MEDS: PROTONIX IV SCH (10:02)
[2018-09-12] MEDS: LOVENOX SUB-Q SCH (10:03)
--- NOTE | 2018-09-12 12:34 | Progress Note ---
Assessment and Plan Assessment and plan: Patient is a 33 yo woman with a history of Type 1 DM, DKA, kidney stones with hydronephrosis s/p nephrostomy tubes/ureteral stents, chronic renal vein thrombosis was on Eliquis in the past and hyperthyroidism who presented to [facility] ED with generalized body aches, right flank pains, headaches, sore throat and n/v. She was admitted for complicated UTI with inability to take oral abx. * CT abd/pelvis with IV contrast IMPRESSION: There is no evidence of intestinal obstruction. No ileus or enteritis. The appendix region is normal. The appendix is not clearly visualized separate from the remainder the bowel. The right kidney is identified in the upper pelvis. No renal obstruction is identified. Uterus is enlarged. There is a dominant 2 cm cyst on the left ovary. Normal fluid in the lower pelvis is noted. . * CT head without contrast IMPRESSION: No evidence of hemorrhage, acute infarction or mass . Acute gastritis: treat with IVFs, PPI and iv reglan Urinary tract infection: treat with iv rocephin, follow urine cultures Type I Diabetes mellitius uncontrolled: continue insulin despite poor oral intake, use SSI, and reduce long acting insulin by have, ordered A1c Hyperthyroidism: TFT ok continue home regimen History of renal vein thrombosis: Dr. Jackson Child in [place] took her off Eliquis> 1year ago Tinea infection left neck and back area: add Lotrimin topical, improve bg should help Disposition: continue inpatient, await urine cultures which says received in micro lab, once tolerating and urine culture results and blood glucose under control then d/c home I completed the home reconciliation: hold home insulin, restarted tapezole Disposition: continue inpatient care, urine culture growing GNR awaiting final result prior to discharge. History Interval history: Patient was seen and examined. Follow-up on current diagnosis n/v improved. No overnight events reported to me. Patient denies any chest pain, shortness breath. Imaging, nursing note, chart, labs and old chart reviewed. Discussed with patient. Hospitalist Physical - Physical exam Narrative exam: Gen: WDWN, NAD, Awake, Alert, Orientated HEENT: NCAT, EOMI, PERRL, OP Clear Neck: supple, no adenopathy, no thyromegaly, no JVD CVS/Heart: RRR, normal S1S2, pulses present bilaterally Chest/Lungs: CTA B, Symmetrical chest expansion, good air entry bilaterally GI/Abdomen: soft, NTND, good bowel sounds, no guarding or rebound /Bladder: no suprapubic tenderness, no CVA or paraspinal tenderness Extermity/Skin: no c/c/e, left anterior base of neck coin shape plaque MSK: FROM x 4 Neuro: CN 2-12 grossly intact, no new focal deficits Psych: calm - Constitutional Vitals: Temp Pulse Resp BP Pulse Ox 98.6 F 73 20 120/70 100 09/12/18 11:21 09/12/18 11:21 09/12/18 11:21 09/12/18 11:21 09/12/18 11:21 Results - Labs CBC & Chem 7: 09/12/18 06:59 09/12/18 06:59 Labs: Laboratory Last Values WBC 4.3 K/mm3 (4.5-11.0) L 09/12/18 06:59 RBC 4.57 M/mm3 (3.65-5.03) 09/12/18 06:59 Hgb 11.2 gm/dl (10.1-14.3) 09/12/18 06:59 Hct 35.0 % (30.3-42.9) 09/12/18 06:59 MCV 77 fl (79-97) L 09/12/18 06:59 MCH 25 pg (28-32) L 09/12/18 06:59 MCHC 32 % (30-34) 09/12/18 06:59 RDW 15.4 % (13.2-15.2) H 09/12/18 06:59 Plt Count 180 K/mm3 (140-440) 09/12/18 06:59 Lymph % (Auto) 47.6 % (13.4-35.0) H 09/12/18 06:59 [place] % (Auto) 9.6 % (0.0-7.3) H 09/12/18 06:59 Eos % (Auto) 3.9 % (0.0-4.3) 09/12/18 06:59 Baso % (Auto) 0.6 % (0.0-1.8) 09/12/18 06:59 Lymph # 2.1 K/mm3 (1.2-5.4) 09/12/18 06:59 [place] # 0.4 K/mm3 (0.0-0.8) 09/12/18 06:59 Eos # 0.2 K/mm3 (0.0-0.4) 09/12/18 06:59 Baso # 0.0 K/mm3 (0.0-0.1) 09/12/18 06:59 Seg Neutrophils % 38.3 % (40.0-70.0) L 09/12/18 06:59 Seg Neutrophils # 1.7 K/mm3 (1.8-7.7) L 09/12/18 06:59 VBG pH 7.360 (7.320-7.420) 09/10/18 22:43 Sodium 139 mmol/L (137-145) 09/12/18 06:59 Potassium 4.0 mmol/L (3.6-5.0) 09/12/18 06:59 Chloride 105.0 mmol/L (98-107) 09/12/18 06:59 Carbon Dioxide 23 mmol/L (22-30) 09/12/18 06:59 15 mmol/L 09/12/18 06:59 BUN 8 mg/dL (7-17) 09/12/18 06:59 0.9 mg/dL (0.7-1.2) 09/12/18 06:59 Estimated GFR > 60 ml/min 09/12/18 06:59 9 % 09/12/18 06:59 Glucose 130 mg/dL (65-100) H 09/12/18 06:59 POC Glucose 179 (70-105) H 09/12/18 10:09 9.6 % (4-6) H 09/11/18 13:34 Calcium 8.2 mg/dL (8.4-10.2) L 09/12/18 06:59 0.30 mg/dL (0.1-1.2) 09/10/18 22:43 AST 16 units/L (5-40) 09/10/18 22:43 ALT 16 units/L (7-56) 09/10/18 22:43 78 units/L (35-129) 09/10/18 22:43 7.6 g/dL (6.3-8.2) 09/10/18 22:43 3.7 g/dL (3.9-5) L 09/10/18 22:43 0.9 % 09/10/18 22:43 10 units/L (13-60) L 09/10/18 22:43 TSH 0.634 mlU/mL (0.270-4.200) 09/10/18 22:43 Free T4 0.87 ng/dL (0.76-1.46) 09/10/18 22:43 HCG, Qual Negative (Negative) 09/10/18 22:43 Yellow (Yellow) 09/10/18 Unknown Slightly-cloudy (Clear) 09/10/18 Unknown 6.0 (5.0-7.0) 09/10/18 Unknown Ur Specific [place] 1.024 (1.003-1.030) 09/10/18 Unknown <15 mg/dl mg/dL (Negative) 09/10/18 Unknown >=500 mg/dL (Negative) 09/10/18 Unknown Neg mg/dL (Negative) 09/10/18 Unknown Sm (Negative) 09/10/18 Unknown Neg (Negative) 09/10/18 Unknown Neg (Negative) 09/10/18 Unknown < 2.0 mg/dL (<2.0) 09/10/18 Unknown Ur Leukocyte Esterase Mod (Negative) 09/10/18 Unknown 97.0 /HPF (0.0-6.0) H 09/10/18 Unknown 6.0 /HPF (0.0-6.0) 09/10/18 Unknown U Epithel Cells (Auto) 6.0 /HPF (0-13.0) 09/10/18 Unknown 1+ /HPF (Negative) 09/10/18 Unknown Few /HPF 09/10/18 Unknown Active Medications - Current Medications Current Medications: Generic Name Dose Route Start Last Admin Trade Name Freq PRN Reason Stop Dose Admin Acetaminophen 650 mg 09/11/18 02:26 Tylenol PO Q4H PRN Pain MILD(1-3)/Fever >100.5/SAINZ Clotrimazole 1 applic 09/11/18 10:00 09/12/18 10:05 Lotrimin TP 09/18/18 10:01 1 applic BID MATEO Administration Dextrose 50 ml 09/11/18 02:26 D50w (25gm) Syringe IV PRN PRN Hypoglycemia Diphenhydramine HCl 25 mg 09/11/18 09:19 09/12/18 11:45 Benadryl IV 25 mg Q6H PRN Administration Itching Enoxaparin Sodium 40 mg 09/11/18 10:00 09/12/18 10:03 Lovenox SUB-Q 40 mg QDAY@1000 MATEO Administration Hydromorphone HCl 0.5 mg 09/11/18 09:20 09/12/18 11:44 Dilaudid IV 0.5 mg Q3H PRN Administration Pain , Severe (7-10) Ceftriaxone Sodium 1 gm in 50 mls @ 100 mls/hr 09/12/18 02:00 09/12/18 01:55 Rocephin/Ns 1 Gm/50 Ml IV 100 mls/hr Q24H MATEO Administration Protocol Sodium Chloride 1,000 mls @ 100 mls/hr 09/11/18 08:00 09/12/18 10:01 Nacl 0.9% 1000 Ml IV 100 mls/hr DIRECT MATEO Administration Insulin Glargine 12 units 09/11/18 22:00 09/11/18 21:38 Lantus SUB-Q 12 units QHS MATEO Administration Insulin Human Lispro 0 unit 09/11/18 10:00 09/12/18 10:00 Humalog SUB-Q 3 unit Q6H M[facility] Administration Protocol Methimazole 10 mg 09/11/18 10:00 09/12/18 10:02 Tapazole PO 10 mg QDAY MATEO Administration Metoclopramide HCl 10 mg 09/11/18 07:56 Reglan IV Q8H PRN Nausea And Vomiting Ondansetron HCl 4 mg 09/11/18 02:26 09/11/18 11:45 Zofran IV 4 mg Q8H PRN Administration Nausea And Vomiting Oxycodone/Acetaminophen 1 tab 09/11/18 02:26 09/11/18 06:17 Percocet 5/325 PO 1 tab Q6H PRN Administration Pain, Moderate (4-6) Pantoprazole Sodium 40 mg 09/11/18 10:00 09/12/18 10:02 Protonix IV 40 mg QDAY MATEO Administration Sodium Chloride 10 ml 09/11/18 10:00 09/12/18 10:03 Sodium Chloride Flush Syringe 10 Ml IV 10 ml BID MATEO Administration Sodium Chloride 10 ml 09/11/18 02:26 Sodium Chloride Flush Syringe 10 Ml IV PRN PRN LINE FLUSH
[2018-09-13] MEDS: DILAUDID IV PRN ×4 (03:19→20:54)
[2018-09-13] MEDS: HumaLOG SUB-Q SCH ×5 (04:52→23:17)
[2018-09-13] MEDS: BENADRYL IV PRN ×3 (06:38→20:56)
[2018-09-13] MEDS: NACL 0.9% 1000 ML 1,000 ML IV SCH ×2 (06:41→18:44)
[2018-09-13] MEDS: LOVENOX SUB-Q SCH (10:35)
[2018-09-13] MEDS: PROTONIX IV SCH (10:36)
[2018-09-13] MEDS: SODIUM CHLORIDE FLUSH SYRINGE 10 ML IV SCH ×2 (10:36→22:00)
[2018-09-13] MEDS: TAPAZOLE PO SCH (10:36)
[2018-09-13] MEDS: LOTRIMIN TP SCH ×2 (10:39→21:06)
[2018-09-13] MEDS: ROCEPHIN/NS 1 GM/50 ML 1 GM/50 ML BAG IV SCH (12:37)
[2018-09-13] MEDS ORDERED: PERCOCET 5/325 PO PRN (14:15)
--- NOTE | 2018-09-13 18:04 | Progress Note ---
Assessment and Plan - Patient Problems (1) Generalized abdominal pain Current Visit: Yes Status: Acute Plan to address problem: Patient generalized abdominal pain most likely from complicated UTI. Clinically appears better as well. Patient follow-up CT scan is ruled out stones or any pelvic etiology as well at this time. Patient is afebrile no leukocytosis. No complains of subjective pain. Will avoid Dilaudid today concerned about drug-seeking behavior. We'll add patient 10 mg of Percocet and preparation for discharge with by mouth medications. She is afebrile at 98 no tachycardia consistent with persistent pain no nausea and vomiting. Drinks juice but her blood sugar is increased because of drinking the juice. (2) UTI (urinary tract infection) Current Visit: Yes Status: Acute Plan to address problem: Continue Rocephin if remains stable and no evidence of culture positive in microbiology would ease to by mouth antibiotics for potential discharge tomorrow. (3) Uncontrolled diabetes mellitus Current Visit: Yes Status: Acute Plan to address problem: We'll increase Lantus to 22 units. Continue sliding scale coverage. Needs to be more compliant with diet. Patient has uncontrolled type 1 diabetes we'll increase Lantus to 22 units. (4) Bilateral flank pain Current Visit: No Status: Acute Plan to address problem: Patient bilateral flank pain most likely from UTI as well. No evidence of stone C follow-up CT scan. History Interval history: 33-year-old female history of diabetes DKA renal stones chronic renal venous stasis placed on L a course. Presented nausea or vomiting found have complica satish UTI and gastritis. Follow-up patient appears to be improving. Still states she is in pain. Concerning for narcotic aching. Patient wanted particular cocktails. One medications Dilaudid increased despite appearing comfortable. And despite CT scan pelvis unremarkable. Was complicated by uncontrolled diabetes and will increase meds as addressed below. Hospitalist Physical - Constitutional Vitals: Temp Pulse Resp BP Pulse Ox 98.8 F 71 19 118/72 98 09/13/18 11:10 09/13/18 11:10 09/13/18 11:10 09/13/18 11:10 09/13/18 11:10 General appearance: Present: no acute distress - EENT Eyes: Present: PERRL, EOM intact ENT: hearing intact, clear oral mucosa, dentition normal - Neck Neck: Present: supple, normal ROM - Respiratory Respiratory: bilateral: CTA - Cardiovascular Rhythm: irregularly irregular - Extremities Extremities: no ischemia, pulses intact, pulses symmetrical Peripheral Pulses: within normal limits - Abdominal General gastrointestinal: soft, non-distended, normal bowel sounds, no hepatomegaly, no splenomegaly, no mass - Psychiatric Psychiatric: intact judgment & insight, memory intact - Neurologic Neurologic: CNII-XII intact, no focal deficits, moves all extremities Results - Labs CBC & Chem 7: 09/12/18 06:59 09/12/18 06:59 Labs: Laboratory Last Values WBC 4.3 K/mm3 (4.5-11.0) L 09/12/18 06:59 RBC 4.57 M/mm3 (3.65-5.03) 09/12/18 06:59 Hgb 11.2 gm/dl (10.1-14.3) 09/12/18 06:59 Hct 35.0 % (30.3-42.9) 09/12/18 06:59 MCV 77 fl (79-97) L 09/12/18 06:59 MCH 25 pg (28-32) L 09/12/18 06:59 MCHC 32 % (30-34) 09/12/18 06:59 RDW 15.4 % (13.2-15.2) H 09/12/18 06:59 Plt Count 180 K/mm3 (140-440) 09/12/18 06:59 Lymph % (Auto) 47.6 % (13.4-35.0) H 09/12/18 06:59 [place] % (Auto) 9.6 % (0.0-7.3) H 09/12/18 06:59 Eos % (Auto) 3.9 % (0.0-4.3) 09/12/18 06:59 Baso % (Auto) 0.6 % (0.0-1.8) 09/12/18 06:59 Lymph # 2.1 K/mm3 (1.2-5.4) 09/12/18 06:59 [place] # 0.4 K/mm3 (0.0-0.8) 09/12/18 06:59 Eos # 0.2 K/mm3 (0.0-0.4) 09/12/18 06:59 Baso # 0.0 K/mm3 (0.0-0.1) 09/12/18 06:59 Seg Neutrophils % 38.3 % (40.0-70.0) L 09/12/18 06:59 Seg Neutrophils # 1.7 K/mm3 (1.8-7.7) L 09/12/18 06:59 VBG pH 7.360 (7.320-7.420) 09/10/18 22:43 Sodium 139 mmol/L (137-145) 09/12/18 06:59 Potassium 4.0 mmol/L (3.6-5.0) 09/12/18 06:59 Chloride 105.0 mmol/L (98-107) 09/12/18 06:59 Carbon Dioxide 23 mmol/L (22-30) 09/12/18 06:59 15 mmol/L 09/12/18 06:59 BUN 8 mg/dL (7-17) 09/12/18 06:59 0.9 mg/dL (0.7-1.2) 09/12/18 06:59 Estimated GFR > 60 ml/min 09/12/18 06:59 9 % 09/12/18 06:59 Glucose 130 mg/dL (65-100) H 09/12/18 06:59 POC Glucose 275 (70-105) H 09/13/18 16:28 9.6 % (4-6) H 09/11/18 13:34 Calcium 8.2 mg/dL (8.4-10.2) L 09/12/18 06:59 0.30 mg/dL (0.1-1.2) 09/10/18 22:43 AST 16 units/L (5-40) 09/10/18 22:43 ALT 16 units/L (7-56) 09/10/18 22:43 78 units/L (35-129) 09/10/18 22:43 7.6 g/dL (6.3-8.2) 09/10/18 22:43 3.7 g/dL (3.9-5) L 09/10/18 22:43 0.9 % 09/10/18 22:43 10 units/L (13-60) L 09/10/18 22:43 TSH 0.634 mlU/mL (0.270-4.200) 09/10/18 22:43 Free T4 0.87 ng/dL (0.76-1.46) 09/10/18 22:43 HCG, Qual Negative (Negative) 09/10/18 22:43 Yellow (Yellow) 09/10/18 Unknown Slightly-cloudy (Clear) 09/10/18 Unknown 6.0 (5.0-7.0) 09/10/18 Unknown Ur Specific [place] 1.024 (1.003-1.030) 09/10/18 Unknown <15 mg/dl mg/dL (Negative) 09/10/18 Unknown >=500 mg/dL (Negative) 09/10/18 Unknown Neg mg/dL (Negative) 09/10/18 Unknown Sm (Negative) 09/10/18 Unknown Neg (Negative) 09/10/18 Unknown Neg (Negative) 09/10/18 Unknown < 2.0 mg/dL (<2.0) 09/10/18 Unknown Ur Leukocyte Esterase Mod (Negative) 09/10/18 Unknown 97.0 /HPF (0.0-6.0) H 09/10/18 Unknown 6.0 /HPF (0.0-6.0) 09/10/18 Unknown U Epithel Cells (Auto) 6.0 /HPF (0-13.0) 09/10/18 Unknown 1+ /HPF (Negative) 09/10/18 Unknown Few /HPF 09/10/18 Unknown Active Medications - Current Medications Current Medications: Generic Name Dose Route Start Last Admin Trade Name Freq PRN Reason Stop Dose Admin Acetaminophen 650 mg 09/11/18 02:26 Tylenol PO Q4H PRN Pain MILD(1-3)/Fever >100.5/SAINZ Clotrimazole 1 applic 09/11/18 10:00 09/13/18 10:39 Lotrimin TP 09/18/18 10:01 1 applic BID MATEO Administration Dextrose 50 ml 09/11/18 02:26 D50w (25gm) Syringe IV PRN PRN Hypoglycemia Diphenhydramine HCl 25 mg 09/11/18 09:19 09/13/18 14:34 Benadryl IV 25 mg Q6H PRN Administration Itching Enoxaparin Sodium 40 mg 09/11/18 10:00 09/13/18 10:35 Lovenox SUB-Q 40 mg QDAY@1000 MATEO Administration Hydromorphone HCl 0.5 mg 09/11/18 09:20 09/13/18 10:36 Dilaudid IV 0.5 mg Q3H PRN Administration Pain , Severe (7-10) Sodium Chloride 1,000 mls @ 100 mls/hr 09/11/18 08:00 09/13/18 06:41 Nacl 0.9% 1000 Ml IV 100 mls/hr DIRECT MATEO Administration Ceftriaxone Sodium 1 gm in 50 mls @ 100 mls/hr 09/13/18 12:00 09/13/18 12:37 Rocephin/Ns 1 Gm/50 Ml IV 100 mls/hr Q24HR MATEO Administration Protocol Insulin Glargine 12 units 09/11/18 22:00 09/11/18 21:38 Lantus SUB-Q 12 units QHS MATEO Administration Insulin Human Lispro 0 unit 09/11/18 10:00 09/13/18 12:37 Humalog SUB-Q 3 unit Q6H MATEO Administration Protocol Methimazole 10 mg 09/11/18 10:00 09/13/18 10:36 Tapazole PO 10 mg QDAY MATEO Administration Metoclopramide HCl 10 mg 09/11/18 07:56 Reglan IV Q8H PRN Nausea And Vomiting Ondansetron HCl 4 mg 09/11/18 02:26 09/11/18 11:45 Zofran IV 4 mg Q8H PRN Administration Nausea And Vomiting Oxycodone/Acetaminophen 1 tab 09/11/18 02:26 09/11/18 06:17 Percocet 5/325 PO 1 tab Q6H PRN Administration Pain, Moderate (4-6) Oxycodone/Acetaminophen 2 tab 09/13/18 14:15 09/13/18 14:34 Percocet 5/325 PO 2 tab Q6H PRN Administration Pain, Moderate (4-6) Pantoprazole Sodium 40 mg 09/14/18 10:00 Protonix PO DAILY MATEO Sodium Chloride 10 ml 09/11/18 10:00 09/13/18 10:36 Sodium Chloride Flush Syringe 10 Ml IV 10 ml BID MATEO Administration Sodium Chloride 10 ml 09/11/18 02:26 Sodium Chloride Flush Syringe 10 Ml IV PRN PRN LINE FLUSH
[2018-09-13] MEDS ORDERED: LANTUS SUB-Q SCH (18:07)
[2018-09-13] MEDS: SODIUM CHLORIDE FLUSH SYRINGE 10 ML IV PRN (20:57)
[2018-09-14] MEDS: SODIUM CHLORIDE FLUSH SYRINGE 10 ML IV SCH ×2 (00:01→09:19)
[2018-09-14] MEDS: DILAUDID IV PRN ×5 (00:10→13:21)
[2018-09-14] MEDS: SODIUM CHLORIDE FLUSH SYRINGE 10 ML IV PRN ×3 (00:12→06:32)
[2018-09-14] MEDS: BENADRYL IV PRN ×2 (03:28→09:15)
[2018-09-14] MEDS: HumaLOG SUB-Q SCH ×3 (04:18→16:00)
[2018-09-14] MEDS: NACL 0.9% 1000 ML 1,000 ML IV SCH (09:11)
[2018-09-14] MEDS: ROCEPHIN/NS 1 GM/50 ML 1 GM/50 ML BAG IV SCH (09:12)
[2018-09-14] MEDS: TAPAZOLE PO SCH (09:14)
[2018-09-14] MEDS: LOVENOX SUB-Q SCH (09:18)
[2018-09-14] MEDS: LOTRIMIN TP SCH (09:18)
[2018-09-14] MEDS ORDERED: PROTONIX PO SCH (10:00)
[2018-09-14 12:35] VITALS: BP 134/78
--- NOTE | 2018-09-14 13:57 | Discharge Summary ---
Providers - Providers Date of Admission: 09/11/18 02:29 Date of discharge: 09/14/18 Attending physician: PARMJIT ROTHMAN Hospitalization Reason for admission: abdominal pain Condition: Stable Pertinent studies: CT of the abdomen Hospital course: Patient is resting in the bed complains of right lower abdominal pain but denies any nausea or vomiting denies any fever or chills Urine cultures positive for Escherichia coli Nasal swab negative for MRSA Patient has history of drug-seeking behavior CT of the abdomen shows no acute findings Escherichia coli sensitive to Bactrim and Ceftin Patient is medically stable for discharge Upon her request I'm also giving her [place] 15 tablets Discharge the patient on Bactrim for 7 days Disposition: [id number] TO HOME OR SELFCARE - Discharge Diagnoses (1) Generalized abdominal pain Status: Acute Comment: CT of the abdomen showed no acute lesions Abdomen is benign (2) Insulin dependent diabetes mellitus Status: Chronic Comment: Accu-Cheks reviewed Poorly controlled with sugars ranging in the low 200s Will adjust insulin dose at discharge (3) UTI (urinary tract infection) Status: Acute Qualifiers: Urinary tract infection type: acute cystitis Hematuria presence: without hematuria Qualified Code(s): N30.00 - Acute cystitis without hematuria Comment: We will discharge patient on Bactrim (4) Uncontrolled diabetes mellitus Status: Chronic Qualifiers: Diabetes mellitus type: type 1 Core Measure Documentation - Palliative Care Palliative Care/ Comfort Measures: Not Applicable - Core Measures Any of the following diagnoses?: none Exam - Constitutional Vitals: Temp Pulse Resp BP Pulse Ox 98.4 F 68 16 134/78 100 09/14/18 11:35 09/14/18 11:36 09/14/18 11:35 09/14/18 11:35 09/14/18 11:36 General appearance: Present: no acute distress - EENT Eyes: Present: PERRL, EOM intact ENT: hearing intact, clear oral mucosa - Neck Neck: Present: supple, normal ROM - Respiratory Respiratory effort: normal Respiratory: bilateral: CTA - Cardiovascular Rhythm: regular Heart Sounds: Present: S1 & S2 - Extremities Extremities: No edema - Abdominal General gastrointestinal: Present: soft, tender (right mid abdomen). Absent: hepatomegaly, splenomegaly - Rectal Rectal Exam: deferred - Integumentary Integumentary: Present: clear - Musculoskeletal Musculoskeletal: strength equal bilaterally - Psychiatric Psychiatric: appropriate mood/affect Plan Activity: advance as tolerated Weight Bearing Status: Full Weight Bearing Diet: regular, low fat, low cholesterol, low salt, diabetic Follow up with: CHILD,VEE [Other] - 7 Days Prescriptions: Sulfamethoxazole/Trimethoprim [Bactrim DS TAB] 1 each PO BID #14 tablet oxyCODONE /ACETAMINOPHEN [Percocet 5/325 mg] 1 tab PO Q6H PRN #14 tablet PRN Reason: Pain, Moderate (4-6) Pantoprazole [Protonix TAB] 40 mg PO DAILY #30 tablet
== END 2018-09-14 16:30 | disposition home or self-care (01) | DRG 638 ==
LOC: ED 22:03 → 3A 09-11 02:29
PROVIDERS: ADMIT Internal Medicine; ATTEND Internal Medicine
DX: E10.65 Type 1 diabetes mellitus with hyperglycemia (principal); N39.0 Urinary tract infection, site not specified; E87.1 Hypo-osmolality and hyponatremia; K29.00 Acute gastritis without bleeding; B96.20 Unspecified Escherichia coli [E. coli] as the cause of diseases classified elsewhere; E03.9 Hypothyroidism, unspecified; Z98.891 History of uterine scar from previous surgery; Z82.49 Family history of ischemic heart disease and other diseases of the circulatory system; Z83.3 Family history of diabetes mellitus; Z88.8 Allergy status to other drugs, medicaments and biological substances; Z90.49 Acquired absence of other specified parts of digestive tract
CPT/HCPCS: 36415; 70450; 74177; 80048; 80053; 81001; 82805; 82962; 83036; 83690; 84439; 84443; 84703; 85025; 87076; 87086; 87116; 87186; G0378; C9113; J0696; J1170; J1200; J1650; J1815; J2405; J7030; Q9967

== ENCOUNTER 2018-12-05 22:55 | Emergency (ER) | payer MEDICAID ==
[2018-12-06 01:26] LABS: Basophils # (Auto) 0.1 K/mm3 (0.0-0.1); Basophils % (Auto) 1.1 % (0.0-1.8); Eosinophils # (Auto) 0.1 K/mm3 (0.0-0.4); Hematocrit 38.9 % (30.3-42.9); Lymphocytes # (Auto) 2.6 K/mm3 (1.2-5.4); Lymphocytes % (Auto) 42.8 % (13.4-35.0); Mean Corpuscular HGB Conc 31 % (30-34); Mean Corpuscular Volume 77 fl (79-97); Monocytes # (Auto) 0.3 K/mm3 (0.0-0.8); Monocytes % (Auto) 4.9 % (0.0-7.3); Platelet Count 316 K/mm3 (140-440); Red Blood Count 5.05 M/mm3 (3.65-5.03)
[2018-12-06 01:26] LABS: Bilirubin,Urine NEG (Negative); Blood,Urine SM (Negative); Color,Urine Yellow (Yellow); HCG Qualitative,Urine Negative (Negative); Mucus,Urine FEW /HPF; Protein,Urine <15 mg/dL mg/dL (Negative); Urobilinogen,Urine < 2.0 mg/dL (<2.0); WBC,Urine < 1.0 /HPF (0.0-6.0)
[2018-12-06 01:43] LABS: BUN/Creatinine Ratio 20; Blood Urea Nitrogen 16 mg/dL (7-17); Calcium 9.4 mg/dL (8.4-10.2); Hemolysis Index 3
--- NOTE | 2018-12-06 01:54 | Emergency Department Report ---
ED General Adult HPI - General Chief complaint: Hyperglycemia Stated complaint: LOWER ABD PAIN, BLOOD SUGAR KRYSTAL RAUSCHALEXANDRU Time Seen by Provider: 12/06/18 01:08 Source: patient, RN notes reviewed, old records reviewed Mode of arrival: Ambulatory Limitations: Physical Limitation - History of Present Illness Initial comments: This is a 33-year-old female. This patient is not known to this provider previously. The patient reportedly has a history of chronic abdominal pain, previously positive urine cultures for Escherichia coli, narcotic dependence, and possible drug-seeking behavior. The patient presents to the ER with multiple complaints. The patient's first complaint is headache. The headache is frontal, right-sided and retro-orbital. Headache is present for a few days. It is not sharp, sudden or thunderclap in nature. The patient's actual complaint is lower abdominal pain. There is suprapubic in the right lower quadrant. It is aching, throbbing, and increases with palpation and decreases with rest. There is associated nausea and vomiting. There are no urinary symptoms. The patient endorses and hydromorphone typically improves her pain. Her next complaint is painful loss of vision in the right eye. This is present for 3 days. She reports she can only see faint light and shadows. There is no trauma. She reports this has never happened to her before. She also endorses nausea, vomiting and hyperglycemia. -: Gradual, days(s) Location: head, eyes, abdomen Radiation: other Quality: other Consistency: other Improves with: other Worsens with: other - Related Data Home Medications Medication Instructions Recorded Confirmed Last Taken Insulin Glargine,Hum.rec.anlog 26 units SUB-Q QPM 04/05/17 09/11/18 09/10/18 [Basaglar Kwikpen U-100] Methimazole [Tapazole] 10 mg PO QDAY 04/05/17 09/11/18 09/10/18 Admelog 9 units SUB-Q TID 09/11/18 09/11/18 09/10/18 Previous Rx's Medication Instructions Recorded Last Taken Type Insulin Glargine [Lantus VIAL] 20 units SUB-Q QHS units 09/14/18 Unknown Rx Lispro Insulin [HumaLOG] 0 unit SUB-Q Q6H units 09/14/18 Unknown Rx Pantoprazole [Protonix TAB] 40 mg PO DAILY #30 tablet 09/14/18 Unknown Rx Sulfamethoxazole/Trimethoprim 1 each PO BID #14 tablet 09/14/18 Unknown Rx [Bactrim DS TAB] methIMAzole [Tapazole] 10 mg PO QDAY tablet 09/14/18 Unknown Rx oxyCODONE /ACETAMINOPHEN [Percocet 1 tab PO Q6H PRN #14 tablet 09/14/18 Unknown Rx 5/325 mg] Allergies Allergy/AdvReac Type Severity Reaction Status Date / Time ketorolac tromethamine Allergy Severe Hives Verified 08/10/16 21:06 [From Toradol] ketorolac [From Toradol] Allergy Itching Verified 04/04/17 18:50 morphine Allergy Itching Verified 04/04/17 18:50 ED Review of Systems ROS: Stated complaint: LOWER ABD PAIN, BLOOD SUGAR LEVE, VONITTING Other details as noted in HPI Constitutional: malaise. denies: fever Eyes: eye pain, vision change ENT: denies: congestion Respiratory: denies: cough Cardiovascular: denies: chest pain Gastrointestinal: abdominal pain, nausea, vomiting Genitourinary: denies: dysuria Musculoskeletal: myalgia Skin: denies: lesions Neurological: headache, weakness Psychiatric: anxiety ED Past Medical Hx - Past Medical History Hx Congestive Heart Failure: No Hx Diabetes: Yes Hx Deep Vein Thrombosis: No Hx Renal Disease: Yes (kidney stones) Hx Kidney Stones: Yes Hx Asthma: No Hx COPD: No Hx Tuberculosis: No Hx HIV: No Additional medical history: THYROID, 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 - Surgical History Hx Pacemaker: No Hx Internal Defibrillator: No Hx Cholecystectomy: Yes Additional Surgical History: NEPHOSTOMY STENTS, - Social History Smoking Status: Never Smoker - Medications Home Medications: Home Medications Medication Instructions Recorded Confirmed Last Taken Type Insulin Glargine,Hum.rec.anlog 26 units SUB-Q QPM 04/05/17 09/11/18 09/10/18 History [Basaglar Kwikpen U-100] Methimazole [Tapazole] 10 mg PO QDAY 04/05/17 09/11/18 09/10/18 History Admelog 9 units SUB-Q TID 09/11/18 09/11/18 09/10/18 History Insulin Glargine [Lantus VIAL] 20 units SUB-Q QHS units 09/14/18 Unknown Rx Lispro Insulin [HumaLOG] 0 unit SUB-Q Q6H units 09/14/18 Unknown Rx Pantoprazole [Protonix TAB] 40 mg PO DAILY #30 tablet 09/14/18 Unknown Rx Sulfamethoxazole/Trimethoprim 1 each PO BID #14 tablet 09/14/18 Unknown Rx [Bactrim DS TAB] methIMAzole [Tapazole] 10 mg PO QDAY tablet 09/14/18 Unknown Rx oxyCODONE /ACETAMINOPHEN [Percocet 1 tab PO Q6H PRN #14 tablet 09/14/18 Unknown Rx 5/325 mg] ED Physical Exam - General Limitations: No Limitations General appearance: alert, anxious, in distress, obese - Head Head exam: Present: atraumatic, normocephalic - Eye Eye exam: Present: EOMI (extraocular movements are intact bilaterally), conjunctival injection (there is right-sided conjunctival injection), other (the right eye is erythematous in the sclera, the pupil is midpoint, 4 cm, does not react to light, and the cornea appears to be cloudy. There is a negative Calin sign. There is negative fluorescein uptake.). Absent: normal appearance, PERRL (left eye has a pupil that is reactive to light. There is no direct or consensual photophobia in the left eye or right eye.), nystagmus, periorbital tenderness - ENT ENT exam: Present: normal exam, normal orophraynx, mucous membranes moist, normal external ear exam - Neck Neck exam: Present: normal inspection, full ROM. Absent: tenderness, meningismus - Respiratory Respiratory exam: Present: normal lung sounds bilaterally. Absent: respiratory distress - Cardiovascular Cardiovascular Exam: Present: regular rate, normal rhythm, normal heart sounds. Absent: bradycardia, tachycardia, irregular rhythm, systolic murmur, diastolic murmur, rubs, gallop - GI/Abdominal GI/Abdominal exam: Present: soft. Absent: distended, tenderness, guarding, rebound, rigid, pulsatile mass - Extremities Exam Extremities exam: Present: normal inspection, full ROM, other (2+ pulses noted in the bilateral upper, lower extremities. Compartments soft. No long bony tenderness. The pelvis is stable.). Absent: pedal edema, joint swelling, calf tenderness - Back Exam Back exam: Present: normal inspection, full ROM. Absent: tenderness, CVA tenderness (R), CVA tenderness (L), muscle spasm, paraspinal tenderness, vertebral tenderness - Neurological Exam Neurological exam: Present: alert, other (Extraocular movements intact. Tongue midline. No facial droop. Facial sensation intact to light touch in the V1, V2, V3 distribution bilaterally. 5 and 5 strength in 4 extremities.. Sensation is intact to light touch in 4 extremities.). Absent: motor sensory deficit - Psychiatric Psychiatric exam: Present: anxious - Skin Skin exam: Present: warm, dry, intact, normal color. Absent: rash ED Course Vital Signs 12/05/18 12/05/18 12/06/18 23:05 23:09 01:20 Temperature 97.9 F 97.9 F Pulse Rate 84 84 Respiratory 18 18 18 Rate Blood Pressure 123/86 Blood Pressure 123/86 [Right] O2 Sat by Pulse 99 99 Oximetry 12/06/18 12/06/18 01:35 03:10 Temperature 98.8 F Pulse Rate 84 106 H Respiratory 18 17 Rate Blood Pressure Blood Pressure 108/63 128/89 [Right] O2 Sat by Pulse 99 99 Oximetry - Reevaluation(s) Reevaluation #1: 12/06/18 01:53 ga lap regulator aware 10/04/2018 1 10/04/2018 OXYCODONE-ACETAMINOPHEN 5-325 15.0 5 SA PAT [id number] NASIM-K ([id number]) 0 22.5 MME Comm Ins [place] 09/14/2018 1 09/14/2018 OXYCODONE-ACETAMINOPHEN 5-325 14.0 3 RA RED [id number] NASIM-K (4907) 0 35.0 MME Comm Ins [place] 03/08/2018 1 03/08/2018 HYDROCODONE-ACETAMIN 7.5-325 25.0 6 [facility] [id number] NASIM-K (4907) 0 31.25 MME Comm Ins [place] 03/08/2018 1 03/08/2018 DIAZEPAM 10 MG TABLET 2.0 1 [facility] [id number] NASIM-K (4907) 0 Comm Ins [place] Reevaluation #2: 12/06/18 03:32 Differential diagnosis, including but not limited to: Gastroparesis, narcotic dependence, migraine headache, tension headache, cluster headache, iritis, scleritis, episcleritis, retinal detachment, retinal artery thrombosis, retinal vein thrombosis, glaucoma 12/06/18 03:33 Assessment and plan: 33-year-old female with multiple complaints. She has a GCS of 15. She walks with a steady gait. Belly soft on multiple examinations. CT scan of the brain negative for acute disease. CT scan of the abdomen and pelvis negative for acute disease, chronic findings noted. On ocular examination, has a negative Calin sign, negative fluorescein uptake in the right eye, however, right eye visual acuity worse than 20/200. Unfortunately, the Luke-Pen is not working in this department at this time, therefore, not able to obtain accurate intraocular pressure. We do not also have the equipment to perform a dilated posterior chamber examination at this time. Patient requires emergent ophthalmologic consultation, which we cannot provide. The patient may have an emergent medical condition which cannot be definitively meningitis at this hospital, secondary to lack of subspecialty resources. Therefore, the patient will be transferred to receiving Hospital that can provide the aforementioned service. Case is discussed with clinching machine operator, Dr. Maradiaga, who has graciously agreed to see the patient in consultation at [facility]. While in the ER, patient indicated that she had upper extremity redness, which I did not appreciate. She was given IV fluids, antiemetic medication and insulin for her hyperglycemia. Her abdominal pain is chronic, her hyperglycemia is chronic, and all this can be further followed up and managed as an outpatient. ED Medical Decision Making - Lab Data Result diagrams: 12/06/18 00:38 12/06/18 00:38 Vital Signs 12/05/18 12/05/18 12/06/18 23:05 23:09 01:20 Temperature 97.9 F 97.9 F Pulse Rate 84 84 Respiratory 18 18 18 Rate Blood Pressure 123/86 Blood Pressure 123/86 [Right] O2 Sat by Pulse 99 99 Oximetry 12/06/18 01:35 Temperature 98.8 F Pulse Rate 84 Respiratory 18 Rate Blood Pressure Blood Pressure 108/63 [Right] O2 Sat by Pulse 99 Oximetry Lab Results 12/05/18 12/05/18 12/06/18 Range/Units 00:00 23:14 00:38 WBC 6.1 (4.5-11.0) K/mm3 RBC 5.05 H (3.65-5.03) M/mm3 Hgb 12.0 (10.1-14.3) gm/dl Hct 38.9 (30.3-42.9) % MCV 77 L (79-97) fl MCH 24 L (28-32) pg MCHC 31 (30-34) % RDW 15.0 (13.2-15.2) % Plt Count 316 (140-440) K/mm3 Lymph % (Auto) 42.8 H (13.4-35.0) % [place] % (Auto) 4.9 (0.0-7.3) % Eos % (Auto) 2.0 (0.0-4.3) % Baso % (Auto) 1.1 (0.0-1.8) % Lymph # 2.6 (1.2-5.4) K/mm3 [place] # 0.3 (0.0-0.8) K/mm3 Eos # 0.1 (0.0-0.4) K/mm3 Baso # 0.1 (0.0-0.1) K/mm3 Seg Neutrophils % 49.2 (40.0-70.0) % Seg Neutrophils # 3.0 (1.8-7.7) K/mm3 Sodium (137-145) mmol/L Potassium (3.6-5.0) mmol/L Chloride (98-107) mmol/L Carbon Dioxide (22-30) mmol/L Anion Gap mmol/L BUN (7-17) mg/dL Creatinine (0.7-1.2) mg/dL Estimated GFR ml/min BUN/Creatinine Ratio % Glucose (65-100) mg/dL POC Glucose 277 H (70-105) Calcium (8.4-10.2) mg/dL Urine Color Yellow (Yellow) Urine Turbidity Clear (Clear) Urine pH 6.0 (5.0-7.0) Ur Specific [place] 1.024 (1.003-1.030) Urine Protein <15 mg/dl (Negative) mg/dL Urine Glucose (UA) >=500 (Negative) mg/dL Urine Ketones 20 (Negative) mg/dL Urine Blood Sm (Negative) Urine Nitrite Neg (Negative) Urine Bilirubin Neg (Negative) Urine Urobilinogen < 2.0 (<2.0) mg/dL Ur Leukocyte Esterase Neg (Negative) Urine WBC (Auto) < 1.0 (0.0-6.0) /HPF Urine RBC (Auto) 3.0 (0.0-6.0) /HPF U Epithel Cells (Auto) 2.0 (0-13.0) /HPF Urine Mucus Few /HPF Urine HCG, Qual Negative (Negative) 12/06/18 Range/Units 00:38 WBC (4.5-11.0) K/mm3 RBC (3.65-5.03) M/mm3 Hgb (10.1-14.3) gm/dl Hct (30.3-42.9) % MCV (79-97) fl MCH (28-32) pg MCHC (30-34) % RDW (13.2-15.2) % Plt Count (140-440) K/mm3 Lymph % (Auto) (13.4-35.0) % [place] % (Auto) (0.0-7.3) % Eos % (Auto) (0.0-4.3) % Baso % (Auto) (0.0-1.8) % Lymph # (1.2-5.4) K/mm3 [place] # (0.0-0.8) K/mm3 Eos # (0.0-0.4) K/mm3 Baso # (0.0-0.1) K/mm3 Seg Neutrophils % (40.0-70.0) % Seg Neutrophils # (1.8-7.7) K/mm3 Sodium 135 L (137-145) mmol/L Potassium 4.8 (3.6-5.0) mmol/L Chloride 98.6 (98-107) mmol/L Carbon Dioxide 24 (22-30) mmol/L Anion Gap 17 mmol/L BUN 16 (7-17) mg/dL Creatinine 0.8 (0.7-1.2) mg/dL Estimated GFR > 60 ml/min BUN/Creatinine Ratio 20 % Glucose 322 H (65-100) mg/dL POC Glucose (70-105) Calcium 9.4 (8.4-10.2) mg/dL Urine Color (Yellow) Urine Turbidity (Clear) Urine pH (5.0-7.0) Ur Specific [place] (1.003-1.030) Urine Protein (Negative) mg/dL Urine Glucose (UA) (Negative) mg/dL Urine Ketones (Negative) mg/dL Urine Blood (Negative) Urine Nitrite (Negative) Urine Bilirubin (Negative) Urine Urobilinogen (<2.0) mg/dL Ur Leukocyte Esterase (Negative) Urine WBC (Auto) (0.0-6.0) /HPF Urine RBC (Auto) (0.0-6.0) /HPF U Epithel Cells (Auto) (0-13.0) /HPF Urine Mucus /HPF Urine HCG, Qual (Negative) Critical Care Time: Yes Critical care time in (mins) excluding proc time.: 35 Critical care attestation.: If time is entered above; I have spent that time in minutes in the direct care of this critically ill patient, excluding procedure time. ED Disposition Clinical Impression: Diabetes mellitus, Abdominal pain, Visual disturbance [facility] IP Is pt being admited?: No Does the pt Need Aspirin: No Condition: Good Instructions: Diabetes Mellitus Type 2 in Adults (ED) Referrals: PRIMARY CARE, [Primary Care Provider] - 3-5 Days
[2018-12-06] MEDS ORDERED: NORCO 5/325 PO ONE (02:02)
[2018-12-06] MEDS ORDERED: TETRACAINE 0.5% OD STA (02:02)
[2018-12-06] MEDS ORDERED: HumuLIN R IV ONE (02:02)
[2018-12-06] MEDS ORDERED: REGLAN IV ONE (02:02)
[2018-12-06] MEDS ORDERED: NACL 0.9% 500 ML 500 ML IV ONE (02:02)
[2018-12-06] MEDS ORDERED: FUL-GLO OP ONE ×2 (02:02→02:10)
[2018-12-06] MEDS ORDERED: TETRACAINE 0.5% ONE (02:10)
[2018-12-06] MEDS ORDERED: BSS ONE (02:10)
[2018-12-06] MEDS ORDERED: NACL 0.9% 1000 ML 1,000 ML ONE (02:23)
[2018-12-06] MEDS ORDERED: ZOFRAN ONE (02:43)
[2018-12-06] MEDS ORDERED: SOLU-Medrol IV ONE (02:45)
[2018-12-06] MEDS ORDERED: PEPCID IV ONE (02:45)
[2018-12-06] MEDS ORDERED: BANOPHEN PO ONE (02:45)
[2018-12-06] MEDS ORDERED: ZOFRAN IV ONE (02:45)
--- NOTE | 2018-12-06 02:49 | Cat Scan Report ---
CT HEAD WITHOUT CONTRAST INDICATION / CLINICAL INFORMATION: sam rigth eye visual loss. TECHNIQUE: All CT scans at this location are performed using CT dose reduction for ALARA by means of automated e xposure control. COMPARISON: Head CT 09/11/2018 images. No report available in [facility] P[facility] FINDINGS: HEMORRHAGE: None. EXTRA-AXIAL SPACES: Normal in size and morphology for the patient's age. VENTRICULAR SYSTEM: Normal in size and morphology for the patient's age. CEREBRAL PARENCHYMA: No significant abnormality. No acute territorial infarct. MIDLINE SHIFT OR HERNIATION: None. CEREBELLUM / BRAINSTEM: No significant abnormality. ORBITS: Normal as visualized. SOFT TISSUES of HEAD: No significant abnormality. CALVARIUM: No significant abnormality. PARANASAL SINUSES / MASTOID AIR CELLS: Normal as visualized. ADDITIONAL FINDINGS: None. IMPRESSION: 1. No acute intracranial abnormality. Signer Name: Leonardo Sullivan MD Signed: 12/06/2018 2:45 AM Workstation Name: [id number]
--- NOTE | 2018-12-06 02:58 | Cat Scan Report ---
CT ABDOMEN AND PELVIS WITHOUT CONTRAST INDICATION: abd pain n/v weak rlq pain. TECHNIQUE: Axial CT images were obtained through the abdomen and pelvis without IV contrast. All CT scans at [facility] location are performed using CT dose reduction for ALARA by means of automated exposure control. COMPARISON: CT abdomen and pelvis 09/11/2018 FINDINGS: LOWER CHEST: No significant abnormality. LIVER: No significant abnormality. GALLBLADDER: Remains surgically absent. BILE DUCTS: No significant abnormality. PANCREAS: No significant abnormality. SPLEEN: No significant abnormality. ADRENALS: No significant abnormality. 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 LEFT KIDNEY and URETER: No significant abnormality. STOMACH and SMALL BOWEL: No significant abnormality. COLON: Moderate amount of stool characteristic for constipation. APPENDIX: No significant abnormality. PERITONEUM: No free fluid. No free air. No fluid collection. LYMPH NODES: No significant adenopathy. AORTA and ARTERIES: No significant abnormality. IVC and VEINS: Calcification within the IVC and left renal veins characteristic for chronic venous th rombus, unchanged URINARY BLADDER: No significant abnormality. REPRODUCTIVE ORGANS: Mildly enlarged leiomyomatous uterus, unchanged ADDITIONAL FINDINGS: None. SKELETAL SYSTEM: No significant abnormality. IMPRESSION: 1. Moderate constipation. 2. No urinary tract calculi or hydronephrosis. 3. Leiomyomatous uterus. 4. Chronic deep vein thrombosis with calcification in left renal vein and IVC, unchanged. Signer Name: Leonardo Sullivan MD Signed: 12/06/2018 2:54 AM Workstation Name: [id number]
[2018-12-06] MEDS ORDERED: DILAUDID IV ONE (03:33)
[2018-12-06 04:18] VITALS: BP 103/70
== END 2018-12-06 04:35 | disposition short-term general hospital (02) ==
LOC: ED 22:55
DX: E11.65 Type 2 diabetes mellitus with hyperglycemia (principal); R10.9 Unspecified abdominal pain; R51 Headache; Z90.49 Acquired absence of other specified parts of digestive tract; Z98.890 Other specified postprocedural states; Z79.4 Long term (current) use of insulin; Z79.899 Other long term (current) drug therapy; Z88.6 Allergy status to analgesic agent; Z88.8 Allergy status to other drugs, medicaments and biological substances
CPT/HCPCS: 36415; 70450; 74176; 80048; 81001; 81025; 82962; 85025; 96361; 96374; 96375; 99291; J1170; J2405; J2765; J7030; J1815; Q0163

== ENCOUNTER 2019-01-23 20:29 | Emergency (ER) | payer MEDICAID ==
[2019-01-23 23:42] LABS: Alanine Aminotransferase 11 units/L (7-56); Albumin 3.9 g/dL (3.9-5); BUN/Creatinine Ratio 14; Blood Urea Nitrogen 10 mg/dL (7-17); Calcium 9.1 mg/dL (8.4-10.2); Hemolysis Index 14
[2019-01-24 00:28] LABS: Bilirubin,Urine NEG (Negative); Blood,Urine NEG (Negative); Color,Urine Straw (Yellow); Protein,Urine <15 mg/dL mg/dL (Negative); Urobilinogen,Urine < 2.0 mg/dL (<2.0); WBC,Urine < 1.0 /HPF (0.0-6.0)
[2019-01-24 01:01] LABS: Hematocrit 37.3 % (30.3-42.9); Hemoglobin 11.9 gm/dl (10.1-14.3); Mean Corpuscular HGB Conc 32 % (30-34); Mean Corpuscular Volume 77 fl (79-97); Platelet Count 257 K/mm3 (140-440); Red Blood Count 4.82 M/mm3 (3.65-5.03)
--- NOTE | 2019-01-24 03:55 | Emergency Department Report ---
<IGLESIA YOUNG - Last Filed: 01/24/19 06:53> ED Abdominal Pain HPI - General Chief Complaint: Abdominal Pain Stated Complaint: ABDOMINAL PAIN SAINZ BLOOD SUGAR HIGH Time Seen by Provider: 01/24/19 03:43 Source: patient Mode of arrival: Ambulatory Limitations: No Limitations - History of Present Illness Initial Comments: pt dawna 33 y/o aaf with hx of DMII, and renal stones who presents for bilat flank pain , no dysuria ,no frequency , or hematuria, pt denies fever or chills, pt states bilat flank pain , no N/V, pt is tolerating po intake at this time. pain described as 5/10 aching , pt states allergies to Keotoraloc and Morphine. pt states BG elevated today advised adherence with medication regimen. There no relieving or exacerbating factors, last PM Aware Entry 12/06/2018: percocet po prn pain , MD Complaint: flank pain Onset/Timin -: week(s) Location: bilateral flank Migration to: bilateral flank Severity: moderate Severity scale (0 -10): 5 Quality: aching Consistency: constant Improves With: nothing Worsens With: nothing Associated Symptoms: nausea, vomiting. denies: diarrhea, fever, chills, const ipation, dysuria, hematemesis, melena - Related Data LMP Date: 01/25/19 Home Medications Medication Instructions Recorded Confirmed Last Taken Insulin Glargine,Hum.rec.anlog 26 units SUB-Q QPM 04/05/17 09/11/18 09/10/18 [Basaglar Kwikpen U-100] Methimazole [Tapazole] 10 mg PO QDAY 04/05/17 09/11/18 09/10/18 Admelog 9 units SUB-Q TID 09/11/18 09/11/18 09/10/18 Previous Rx's Medication Instructions Recorded Last Taken Type Insulin Glargine [Lantus VIAL] 20 units SUB-Q QHS units 09/14/18 Unknown Rx Lispro Insulin [HumaLOG] 0 unit SUB-Q Q6H units 09/14/18 Unknown Rx Pantoprazole [Protonix TAB] 40 mg PO DAILY #30 tablet 09/14/18 Unknown Rx Sulfamethoxazole/Trimethoprim 1 each PO BID #14 tablet 09/14/18 Unknown Rx [Bactrim DS TAB] methIMAzole [Tapazole] 10 mg PO QDAY tablet 09/14/18 Unknown Rx Ibuprofen [Motrin] 800 mg PO Q8HR PRN #30 tablet 01/24/19 Unknown Rx Nitrofurantoin Gentry/M-Cryst 100 mg PO Q12HR #10 capsule 01/24/19 Unknown Rx [Macrobid CAP] Tamsulosin [Flomax] 0.4 mg PO QDAY #10 cap 01/24/19 Unknown Rx Allergies Allergy/AdvReac Type Severity Reaction Status Date / Time ketorolac tromethamine Allergy Severe Hives Verified 08/10/16 21:06 [From Toradol] ketorolac [From Toradol] Allergy Itching Verified 04/04/17 18:50 morphine Allergy Itching Verified 04/04/17 18:50 ED Review of Systems Constitutional: denies: chills, fever Eyes: denies: eye pain, eye discharge, vision change ENT: denies: ear pain, throat pain Respiratory: denies: cough, shortness of breath, wheezing Cardiovascular: denies: chest pain, palpitations Endocrine: no symptoms reported Gastrointestinal: abdominal pain, nausea, vomiting. denies: diarrhea, melena Genitourinary: denies: urgency, dysuria, frequency, hematuria, discharge Musculoskeletal: denies: back pain, joint swelling, arthralgia Skin: denies: rash, lesions Neurological: denies: headache, weakness, paresthesias Psychiatric: denies: anxiety, depression Hematological/Lymphatic: denies: easy bleeding, easy bruising ED Past Medical Hx - Past Medical History Hx Congestive Heart Failure: No Hx Diabetes: Yes Hx Deep Vein Thrombosis: No Hx Renal Disease: Yes (kidney stones) Hx Kidney Stones: Yes Hx Asthma: No Hx COPD: No Hx Tuberculosis: No Hx HIV: No Additional medical history: THYROID, 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 - Surgical History Hx Pacemaker: No Hx Internal Defibrillator: No Hx Cholecystectomy: Yes Additional Surgical History: NEPHOSTOMY STENTS, - Social History Smoking Status: Never Smoker Substance Use Type: None - Medications Home Medications: Home Medications Medication Instructions Recorded Confirmed Last Taken Type Insulin Glargine,Hum.rec.anlog 26 units SUB-Q QPM 04/05/17 09/11/18 09/10/18 History [Basaglar Kwikpen U-100] Methimazole [Tapazole] 10 mg PO QDAY 04/05/17 09/11/18 09/10/18 History Admelog 9 units SUB-Q TID 09/11/18 09/11/18 09/10/18 History Insulin Glargine [Lantus VIAL] 20 units SUB-Q QHS units 09/14/18 Unknown Rx Lispro Insulin [HumaLOG] 0 unit SUB-Q Q6H units 09/14/18 Unknown Rx Pantoprazole [Protonix TAB] 40 mg PO DAILY #30 tablet 09/14/18 Unknown Rx Sulfamethoxazole/Trimethoprim 1 each PO BID #14 tablet 09/14/18 Unknown Rx [Bactrim DS TAB] methIMAzole [Tapazole] 10 mg PO QDAY tablet 09/14/18 Unknown Rx Ibuprofen [Motrin] 800 mg PO Q8HR PRN #30 tablet 01/24/19 Unknown Rx Nitrofurantoin Gentry/M-Cryst 100 mg PO Q12HR #10 capsule 01/24/19 Unknown Rx [Macrobid CAP] Tamsulosin [Flomax] 0.4 mg PO QDAY #10 cap 01/24/19 Unknown Rx ED Physical Exam - General Limitations: No Limitations General appearance: alert, in no apparent distress - Head Head exam: Present: atraumatic, normocephalic - Eye Eye exam: Present: normal appearance, PERRL, EOMI Pupils: Present: normal accommodation - ENT ENT exam: Present: mucous membranes moist - Neck Neck exam: Present: normal inspection, full ROM. Absent: tenderness, meni ngismus, lymphadenopathy, thyromegaly - Respiratory Respiratory exam: Present: normal lung sounds bilaterally. Absent: respiratory distress, wheezes, stridor, chest wall tenderness - Cardiovascular Cardiovascular Exam: Present: regular rate, normal rhythm, normal heart sounds. Absent: systolic murmur, diastolic murmur, rubs, gallop - GI/Abdominal GI/Abdominal exam: Present: soft, normal bowel sounds. Absent: distended, tenderness, guarding, rebound, rigid, bruit, hernia - Rectal Rectal exam: Present: deferred - Extremities Exam Extremities exam: Present: normal inspection, full ROM, normal capillary refill. Absent: tenderness, pedal edema, joint swelling, calf tenderness - Back Exam Back exam: Present: normal inspection, full ROM, tenderness, CVA tenderness (R), CVA tenderness (L). Absent: muscle spasm, paraspinal tenderness, vertebral tenderness, rash noted - Neurological Exam Neurological exam: Present: alert, oriented X3, CN II-XII intact, normal gait, reflexes normal. Absent: motor sensory deficit - Expanded Neurological Exam Expanded Neurological exam: Present: ataxia Patient oriented to: Present: person, place, time Speech: Present: expressive aphasia Cranial nerves: EOM's Intact: Normal, Gag Reflex: Normal, Tongue Deviation: Normal, Nystagmus: Normal Upper motor neuron: Jacoby Neglect: Normal, Pronator Drift: Normal Motor strength exam: RUE: 5, LUE: 5, RLE: 5, LLE: 5 DTR: bicep (R): 2+, bicep (L): 2+, ankle (R): 2+, ankle (L): 2+ Best Eye Response (Reform): (4) open spontaneously Best Motor Response (Luz Marina): (6) obeys commands Best Verbal Response (Reform): (5) oriented Reform Total: 15 - Psychiatric Psychiatric exam: Present: normal affect - Skin Skin exam: Present: warm, dry, intact, normal color. Absent: rash ED Medical Decision Making - Lab Data Result diagrams: 01/24/19 00:43 01/23/19 22:45 Lab Results 01/23/19 01/23/19 01/24/19 Range/Units 22:45 Unknown 00:43 WBC 8.3 (4.5-11.0) K/mm3 RBC 4.82 (3.65-5.03) M/mm3 Hgb 11.9 (10.1-14.3) gm/dl Hct 37.3 (30.3-42.9) % MCV 77 L (79-97) fl MCH 25 L (28-32) pg MCHC 32 (30-34) % RDW 15.0 (13.2-15.2) % Plt Count 257 (140-440) K/mm3 Lymph % (Auto) Geospatial Specialist Gentry % (Auto) Geospatial Specialist Eos % (Auto) Geospatial Specialist Baso % (Auto) Geospatial Specialist Lymph # Geospatial Specialist Gentry # Geospatial Specialist Eos # Geospatial Specialist Baso # Geospatial Specialist Seg Neutrophils % Geospatial Specialist Seg Neutrophils # Geospatial Specialist Sodium 133 L (137-145) mmol/L Potassium 4.5 (3.6-5.0) mmol/L Chloride 99.8 (98-107) mmol/L Carbon Dioxide 20 L (22-30) mmol/L Anion Gap 18 mmol/L BUN 10 (7-17) mg/dL Creatinine 0.7 (0.7-1.2) mg/dL Estimated GFR > 60 ml/min BUN/Creatinine Ratio 14 % Glucose 420 H (65-100) mg/dL POC Glucose (70-105) Calcium 9.1 (8.4-10.2) mg/dL Total Bilirubin 0.50 (0.1-1.2) mg/dL AST 15 (5-40) units/L ALT 11 (7-56) units/L Alkaline Phosphatase 73 (35-129) units/L Total Protein 8.1 (6.3-8.2) g/dL Albumin 3.9 (3.9-5) g/dL Albumin/Globulin Ratio 0.9 % Urine Color Straw (Yellow) Urine Turbidity Clear (Clear) Urine pH 6.0 (5.0-7.0) Ur Specific [place] 1.022 (1.003-1.030) Urine Protein <15 mg/dl (Negative) mg/dL Urine Glucose (UA) >=500 (Negative) mg/dL Urine Ketones Tr (Negative) mg/dL Urine Blood Neg (Negative) Urine Nitrite Neg (Negative) Urine Bilirubin Neg (Negative) Urine Urobilinogen < 2.0 (<2.0) mg/dL Ur Leukocyte Esterase Neg (Negative) Urine WBC (Auto) < 1.0 (0.0-6.0) /HPF Urine RBC (Auto) 1.0 (0.0-6.0) /HPF U Epithel Cells (Auto) 3.0 (0-13.0) /HPF 01/24/19 Range/Units 03:06 WBC (4.5-11.0) K/mm3 RBC (3.65-5.03) M/mm3 Hgb (10.1-14.3) gm/dl Hct (30.3-42.9) % MCV (79-97) fl MCH (28-32) pg MCHC (30-34) % RDW (13.2-15.2) % Plt Count (140-440) K/mm3 Lymph % (Auto) Gentry % (Auto) Eos % (Auto) Baso % (Auto) Lymph # Gentry # Eos # Baso # Seg Neutrophils % Seg Neutrophils # Sodium (137-145) mmol/L Potassium (3.6-5.0) mmol/L Chloride (98-107) mmol/L Carbon Dioxide (22-30) mmol/L Anion Gap mmol/L BUN (7-17) mg/dL Creatinine (0.7-1.2) mg/dL Estimated GFR ml/min BUN/Creatinine Ratio % Glucose (65-100) mg/dL POC Glucose 367 H (70-105) Calcium (8.4-10.2) mg/dL Total Bilirubin (0.1-1.2) mg/dL AST (5-40) units/L ALT (7-56) units/L Alkaline Phosphatase (35-129) units/L Total Protein (6.3-8.2) g/dL Albumin (3.9-5) g/dL Albumin/Globulin Ratio % Urine Color (Yellow) Urine Turbidity (Clear) Urine pH (5.0-7.0) Ur Specific [place] (1.003-1.030) Urine Protein (Negative) mg/dL Urine Glucose (UA) (Negative) mg/dL Urine Ketones (Negative) mg/dL Urine Blood (Negative) Urine Nitrite (Negative) Urine Bilirubin (Negative) Urine Urobilinogen (<2.0) mg/dL Ur Leukocyte Esterase (Negative) Urine WBC (Auto) (0.0-6.0) /HPF Urine RBC (Auto) (0.0-6.0) /HPF U Epithel Cells (Auto) (0-13.0) /HPF - Medical Decision Making Pt is a 33 y/o aaf with hx of renal stones , DMII, who presents for right flank pain x for 1 week, bilat back pain not improving, plan, Dilaudid: ct abd and pelvis, will dc to home if nonobstructive stones, will admit to inpatient if obstructive stone with urology consult. pain is 4/10 at this time, Ct abd pelvis w/o constrast pending, will sign out case to am provider who will dispo appropriately. pt care signed out at this time to day shift provider. ED Disposition Clinical Impression: Hyperglycemia, Diabetes mellitus, Kidney stone Disposition: DC-01 TO HOME OR SELFCARE Condition: Stable Instructions: Kidney Stones (ED) Additional Instructions: hydrate well with water med as ordered today take your home meds follow your blood sugar and treat appropriately follow up with urology MD referral below see him damian follow up with pcp Referrals: TAHIR OSWALD MD [Staff Physician] - 3-5 Days <ARA MAYO - Last Filed: 01/24/19 10:13> ED Review of Systems ROS: Stated complaint: ABDOMINAL PAIN SAINZ BLOOD SUGAR HIGH Other details as noted in HPI Comment: All other systems reviewed and negative ED Course Vital Signs 01/23/19 01/24/19 21:58 06:53 Temperature 98.6 F Pulse Rate 85 Respiratory 18 16 Rate Blood Pressure 134/82 O2 Sat by Pulse 99 Oximetry ED Medical Decision Making - Lab Data Result diagrams: 01/24/19 00:43 01/23/19 22:45 - Radiology Data Radiology results: report reviewed, image reviewed - Medical Decision Making Labs 01/23/19 01/23/19 01/24/19 22:45 Unknown 00:43 WBC 8.3 RBC 4.82 Hgb 11.9 Hct 37.3 MCV 77 L MCH 25 L MCHC 32 RDW 15.0 Plt Count 257 Lymph % (Auto) Geospatial Specialist Gentry % (Auto) Geospatial Specialist Eos % (Auto) Geospatial Specialist Baso % (Auto) Geospatial Specialist Lymph # Geospatial Specialist Gentry # Geospatial Specialist Eos # Geospatial Specialist Baso # Geospatial Specialist Add Manual Diff Complete Total Counted 100 Seg Neutrophils % Geospatial Specialist Seg Neuts % (Manual) 75.0 H Band Neutrophils % 0 Lymphocytes % (Manual) 22.0 Reactive Lymphs % (Man) 0 Monocytes % (Manual) 1.0 Eosinophils % (Manual) 1.0 Basophils % (Manual) 1.0 Metamyelocytes % 0 Myelocytes % 0 Promyelocytes % 0 Blast Cells % 0 Nucleated RBC % Not Reportable Seg Neutrophils # Geospatial Specialist Seg Neutrophils # Man 6.2 Band Neutrophils # 0.0 Lymphocytes # (Manual) 1.8 Abs React Lymphs (Man) 0.0 Monocytes # (Manual) 0.1 Eosinophils # (Manual) 0.1 Basophils # (Manual) 0.1 Metamyelocytes # 0.0 Myelocytes # 0.0 Promyelocytes # 0.0 Blast Cells # 0.0 WBC Morphology Not Reportable Hypersegmented Neuts Not Reportable Hyposegmented Neuts Not Reportable Hypogranular Neuts Not Reportable Smudge Cells Not Reportable Toxic Granulation Not Reportable Toxic Vacuolation Not Reportable Dohle Bodies Not Reportable Pelger-Huet Anomaly Not Reportable Radha Rods Not Reportable Platelet Estimate Consistent w auto Clumped Platelets Not Reportable Plt Clumps, EDTA Not Reportable Large Platelets Not Reportable Giant Platelets Not Reportable Platelet Satelliting Not Reportable Plt Morphology Comment Not Reportable RBC Morphology Not Reportable Dimorphic RBCs Not Reportable Polychromasia Not Reportable Hypochromasia Not Reportable Poikilocytosis Not Reportable Anisocytosis Few Microcytosis Not Reportable Macrocytosis Not Reportable Spherocytes Not Reportable Pappenheimer Bodies Not Reportable Sickle Cells Not Reportable Target Cells Not Reportable Tear Drop Cells Not Reportable Ovalocytes Not Reportable Helmet Cells Not Reportable Workman-Hopwood Bodies Not Reportable [place] Rings Not Reportable Alex Cells Not Reportable Bite Cells Not Reportable Crenated Cell Not Reportable Elliptocytes Not Reportable Acanthocytes (Spur) Not Reportable Rouleaux Not Reportable Hemoglobin C Crystals Not Reportable Schistocytes Not Reportable Malaria parasites Not Reportable Jakob Bodies Not Reportable Hem Pathologist Commnt No Sodium 133 L Potassium 4.5 Chloride 99.8 Carbon Dioxide 20 L Anion Gap 18 BUN 10 Creatinine 0.7 Estimated GFR > 60 BUN/Creatinine Ratio 14 Glucose 420 H POC Glucose Calcium 9.1 Total Bilirubin 0.50 AST 15 ALT 11 Alkaline Phosphatase 73 Total Protein 8.1 Albumin 3.9 Albumin/Globulin Ratio 0.9 HCG, Qual Urine Color Straw Urine Turbidity Clear Urine pH 6.0 Ur Specific [place] 1.022 Urine Protein <15 mg/dl Urine Glucose (UA) >=500 Urine Ketones Tr Urine Blood Neg Urine Nitrite Neg Urine Bilirubin Neg Urine Urobilinogen < 2.0 Ur Leukocyte Esterase Neg Urine WBC (Auto) < 1.0 Urine RBC (Auto) 1.0 U Epithel Cells (Auto) 3.0 Urine HCG, Qual 01/24/19 01/24/19 01/24/19 03:06 04:42 08:15 WBC RBC Hgb Hct MCV MCH MCHC RDW Plt Count Lymph % (Auto) Gentry % (Auto) Eos % (Auto) Baso % (Auto) Lymph # Gentry # Eos # Baso # Add Manual Diff Total Counted Seg Neutrophils % Seg Neuts % (Manual) Band Neutrophils % Lymphocytes % (Manual) Reactive Lymphs % (Man) Monocytes % (Manual) Eosinophils % (Manual) Basophils % (Manual) Metamyelocytes % Myelocytes % Promyelocytes % Blast Cells % Nucleated RBC % Seg Neutrophils # Seg Neutrophils # Man Band Neutrophils # Lymphocytes # (Manual) Abs React Lymphs (Man) Monocytes # (Manual) Eosinophils # (Manual) Basophils # (Manual) Metamyelocytes # Myelocytes # Promyelocytes # Blast Cells # WBC Morphology Hypersegmented Neuts Hyposegmented Neuts Hypogranular Neuts Smudge Cells Toxic Granulation Toxic Vacuolation Dohle Bodies Pelger-Huet Anomaly Radha Rods Platelet Estimate Clumped Platelets Plt Clumps, EDTA Large Platelets Giant Platelets Platelet Satelliting Plt Morphology Comment RBC Morphology Dimorphic RBCs Polychromasia Hypochromasia Poikilocytosis Anisocytosis Microcytosis Macrocytosis Spherocytes Pappenheimer Bodies Sickle Cells Target Cells Tear Drop Cells Ovalocytes Helmet Cells Workman-Hopwood Bodies [place] Rings [place] Cells Bite Cells Crenated Cell Elliptocytes Acanthocytes (Spur) Rouleaux Hemoglobin C Crystals Schistocytes Malaria parasites Jakob Bodies Hem Pathologist Commnt Sodium Potassium Chloride Carbon Dioxide Anion Gap BUN Creatinine Estimated GFR BUN/Creatinine Ratio Glucose POC Glucose 367 H 418 H Calcium Total Bilirubin AST ALT Alkaline Phosphatase Total Protein Albumin Albumin/Globulin Ratio HCG, Qual Urine Color Urine Turbidity Urine pH Ur Specific [place] Urine Protein Urine Glucose (UA) Urine Ketones Urine Blood Urine Nitrite Urine Bilirubin Urine Urobilinogen Ur Leukocyte Esterase Urine WBC (Auto) Urine RBC (Auto) U Epithel Cells (Auto) Urine HCG, Qual Negative 01/24/19 01/24/19 08:27 09:31 WBC RBC Hgb Hct MCV MCH MCHC RDW Plt Count Lymph % (Auto) Gentry % (Auto) Eos % (Auto) Baso % (Auto) Lymph # Gentry # Eos # Baso # Add Manual Diff Total Counted Seg Neutrophils % Seg Neuts % (Manual) Band Neutrophils % Lymphocytes % (Manual) Reactive Lymphs % (Man) Monocytes % (Manual) Eosinophils % (Manual) Basophils % (Manual) Metamyelocytes % Myelocytes % Promyelocytes % Blast Cells % Nucleated RBC % Seg Neutrophils # Seg Neutrophils # Man Band Neutrophils # Lymphocytes # (Manual) Abs React Lymphs (Man) Monocytes # (Manual) Eosinophils # (Manual) Basophils # (Manual) Metamyelocytes # Myelocytes # Promyelocytes # Blast Cells # WBC Morphology Hypersegmented Neuts Hyposegmented Neuts Hypogranular Neuts Smudge Cells Toxic Granulation Toxic Vacuolation Dohle Bodies Pelger-Huet Anomaly Radha Rods Platelet Estimate Clumped Platelets Plt Clumps, EDTA Large Platelets Giant Platelets Platelet Satelliting Plt Morphology Comment RBC Morphology Dimorphic RBCs Polychromasia Hypochromasia Poikilocytosis Anisocytosis Microcytosis Macrocytosis Spherocytes Pappenheimer Bodies Sickle Cells Target Cells Tear Drop Cells Ovalocytes Helmet Cells Workman-Hopwood Bodies [place] Rings [place] Cells Bite Cells Crenated Cell Elliptocytes Acanthocytes (Spur) Rouleaux Hemoglobin C Crystals Schistocytes Malaria parasites Jakob Bodies Hem Pathologist Commnt Sodium Potassium Chloride Carbon Dioxide Anion Gap BUN Creatinine Estimated GFR BUN/Creatinine Ratio Glucose POC Glucose 236 H Calcium Total Bilirubin AST ALT Alkaline Phosphatase Total Protein Albumin Albumin/Globulin Ratio HCG, Qual Negative Urine Color Urine Turbidity Urine pH Ur Specific [place] Urine Protein Urine Glucose (UA) Urine Ketones Urine Blood Urine Nitrite Urine Bilirubin Urine Urobilinogen Ur Leukocyte Esterase Urine WBC (Auto) Urine RBC (Auto) U Epithel Cells (Auto) Urine HCG, Qual Vital Signs 01/23/19 01/24/19 21:58 06:53 Temperature 98.6 F Pulse Rate 85 Respiratory 18 16 Rate Blood Pressure 134/82 O2 Sat by Pulse 99 Oximetry labs noted no ua collected p [address] noted for small nonobs stone will dc home with rx and uro follow up - Differential Diagnosis ro k stone Critical care attestation.: If time is entered above; I have spent that time in minutes in the direct care of this critically ill patient, excluding procedure time. ED Disposition Is pt being admited?: No Does the pt Need Aspirin: No Time of Disposition: 10:10
[2019-01-24] MEDS ORDERED: NACL 0.9% 1000 ML 1,000 ML IV ONE (04:03)
[2019-01-24] MEDS ORDERED: ZOFRAN IV ONE (04:03)
[2019-01-24] MEDS ORDERED: HumuLIN R IV ONE (04:04)
[2019-01-24] MEDS ORDERED: DILAUDID IV ONE (06:45)
[2019-01-24 08:29] LABS: HCG Qualitative,Urine Negative (Negative)
[2019-01-24 09:32] LABS: Total Cells Counted 100
[2019-01-24 09:33] LABS: Anisocytosis Few; Platelet Estimate Consistent w Auto
--- NOTE | 2019-01-24 10:04 | Cat Scan Report ---
CT ABDOMEN AND PELVIS WITHOUT CONTRAST HISTORY: abd and flank pain COMPARISON: 12/06/2018 TECHNIQUE: Axial CT images were obtained through the abdomen and pelvis without IV contrast. Sagittal and coronal reformatted images. All CT scans at this location are performed using CT dose reduction for ALARA by means of automated exposure control. FINDINGS: CT ABDOMEN: Lung Bases: Clear. Liver: No significant abnormality. Biliary: No significant abnormality. Cholecystectomy. Spleen: No significant abnormality. Unenlarged. Focal splenic calcifications are unchanged. Pancreas: No significant abnormality. Adrenals: No significant abnormality. Kidneys: The right kidney is low-lying and anteriorly rotated but no focal renal lesion or nephrolith iasis. The left kidney is normal in size and position. A 3 mm calculus is identified at the inferior pole of the left kidney. No ureteral stones or hydronephrosis. Lymphatics: No lymphadenopathy. Vasculature: There appears to be a venous stent extending from the left main renal vein to the intrah epatic IVC. The remaining vascular structures are grossly normal on noncontrast CT. Bowel/Peritoneum: No significant abnormality. No free air. No free fluid. Normal appendix. CT PELVIS: : The uterus and ovaries are unremarkable. The bladder is partially collapsed. Osseous Structures: No significant abnormality. Additional Findings: None IMPRESSION: 3 mm left renal stone, nonobstructing. Mild right renal ectopia. Cholecystectomy. No acute process is identified in the abdomen or pelvis. Signer Name: Hansel Coburn Jr, MD Signed: 01/24/2019 10:00 AM Workstation Name: [id number]
[2019-01-24] MEDS ORDERED: FLOMAX PO NR (10:12)
[2019-01-24] MEDS ORDERED: PERCOCET 5/325 PO ONE (10:12)
[2019-01-24] MEDS ORDERED: ZOFRAN ODT PO ONE (10:12)
[2019-01-24 11:06] VITALS: BP 135/81
== END 2019-01-24 11:24 | disposition home or self-care (01) ==
LOC: ED 20:29
DX: E11.65 Type 2 diabetes mellitus with hyperglycemia (principal); Z90.49 Acquired absence of other specified parts of digestive tract; Z98.890 Other specified postprocedural states; Z79.899 Other long term (current) drug therapy; Z88.6 Allergy status to analgesic agent
CPT/HCPCS: 36415; 74176; 80053; 81001; 81025; 82962; 84703; 85007; 85025; 96361; 96374; 96375; 99284; J1170; J2405; J7030; J1815; Q0162

== ENCOUNTER 2019-09-13 01:52 | Observation (INO) | payer MEDICAID ==
[2019-09-13 02:46] LABS: Bilirubin,Urine NEG (Negative); Blood,Urine NEG (Negative); Color,Urine Colorless (Yellow); Protein,Urine <15 mg/dL mg/dL (Negative); Urobilinogen,Urine < 2.0 mg/dL (<2.0)
[2019-09-13] MEDS ORDERED: SODIUM CHLORIDE 0.9% 1000 ML 1,000 ML IV ONE ×2 (02:54→04:17)
[2019-09-13] MEDS ORDERED: HYDROmorphone 1 MG/1 ML INJ IV ONE ×3 (02:54→06:45)
[2019-09-13] MEDS ORDERED: ONDANSETRON 4 MG/2 ML INJ IV ONE (02:54)
[2019-09-13] MEDS ORDERED: diphenhydrAMINE 50 MG/ML VIAL IV ONE ×3 (02:58→08:31)
--- NOTE | 2019-09-13 03:02 | Emergency Department Report ---
ED General Adult HPI - General Chief complaint: Hyperglycemia Stated complaint: HIGH BLOOD SUGAR PROBLEM VOMITING LOW BACK PAIN PUI?: No Time Seen by Provider: 09/13/19 02:53 Source: patient Mode of arrival: Ambulatory Limitations: No Limitations - History of Present Illness Initial comments: Patient is a 34-year-old female that presents emergency room with complaints of left flank pain, back pain, nausea vomiting, elevated blood sugar. Patient states her sugars been high for approximately 1 day. Patient states that her na usea vomiting, lower back pain and flank pain started approximately 6 hours ago. Patient states that her symptoms are worsening. Patient states her pain is a 10 out of 10. Patient states her pain is nonradiating. Patient states that her pain is better with rest and worse with movement and palpation. Patient states the pain is a sharp pain. Patient states she is a type I diabetic. Patient de nies fever and chills. Patient also complains of dysuria. Patient denies vaginal discharge. Patient denies possibility of . Patient denies recent travel. Patient denies recent international travel. Patient denies exposure to the novel coronavirus. Patient denies sick contacts. Patient denies fever and chills. Patient denies cough. Patient denies diarrhea. Patient denies coming in contact with anybody with symptoms of the novel coronavirus. -: Sudden Location: back, abdomen Severity scale (0 -10): 10 Quality: stabbing Consistency: constant Improves with: rest Worsens with: movement, other Associated Symptoms: nausea/vomiting. denies: confusion, chest pain, cough, julieta phoresis, fever/chills, headaches, loss of appetite, malaise, rash, seizure, shortness of breath, syncope, weakness Treatments Prior to Arrival: none - Related Data Home Medications Medication Instructions Recorded Confirmed Last Taken Insulin Glargine,Hum.rec.anlog 26 units SUB-Q QPM 04/05/17 09/11/18 09/10/18 [Basaglar Kwikpen U-100] Methimazole [Tapazole] 10 mg PO QDAY 04/05/17 09/11/18 09/10/18 Admelog 9 units SUB-Q TID 09/11/18 09/11/18 09/10/18 Previous Rx's Medication Instructions Recorded Last Taken Type Insulin Glargine [Lantus VIAL] 20 units SUB-Q QHS units 09/14/18 Unknown Rx Lispro Insulin [HumaLOG] 0 unit SUB-Q Q6H units 09/14/18 Unknown Rx Pantoprazole [Protonix TAB] 40 mg PO DAILY #30 tablet 09/14/18 Unknown Rx Sulfamethoxazole/Trimethoprim 1 each PO BID #14 tablet 09/14/18 Unknown Rx [Bactrim DS TAB] methIMAzole [Tapazole] 10 mg PO QDAY tablet 09/14/18 Unknown Rx Ibuprofen [Motrin] 800 mg PO Q8HR PRN #30 tablet 01/24/19 Unknown Rx Nitrofurantoin [place]/M-Cryst 100 mg PO Q12HR #10 capsule 01/24/19 Unknown Rx [Macrobid CAP] Tamsulosin [Flomax] 0.4 mg PO QDAY #10 cap 01/24/19 Unknown Rx Allergies Allergy/AdvReac Type Severity Reaction Status Date / Time ketorolac tromethamine Allergy Severe Hives Verified 09/13/19 01:58 [From Toradol] ketorolac [From Toradol] Allergy Itching Verified 09/13/19 01:58 morphine Allergy Itching Verified 09/13/19 01:58 ED Review of Systems ROS: Stated complaint: HIGH BLOOD SUGAR PROBLEM VOMITING LOW BACK PAIN Other details as noted in HPI Constitutional: denies: chills, fever Eyes: denies: eye pain, eye discharge, vision change ENT: denies: ear pain, throat pain Respiratory: denies: cough, shortness of breath, wheezing Cardiovascular: denies: chest pain, palpitations Endocrine: no symptoms reported, increased thirst, increased urine Gastrointestinal: abdominal pain, nausea, vomiting. denies: diarrhea Genitourinary: dysuria. denies: urgency, discharge Musculoskeletal: denies: back pain, joint swelling, arthralgia Skin: denies: rash, lesions Neurological: denies: headache, weakness, paresthesias Psychiatric: denies: anxiety, depression Hematological/Lymphatic: denies: easy bleeding, easy bruising ED Past Medical Hx - Past Medical History Previous Medical History?: Yes Hx Congestive Heart Failure: No Hx Diabetes: Yes Hx Deep Vein Thrombosis: No Hx Renal Disease: Yes (kidney stones) Hx Kidney Stones: Yes Hx Asthma: No Hx COPD: No Hx Tuberculosis: No Hx HIV: No Additional medical history: THYROID, 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 - Surgical History Past Surgical History?: Yes Hx Pacemaker: No Hx Internal Defibrillator: No Hx Cholecystectomy: Yes Additional Surgical History: NEPHOSTOMY STENTS, - Family History Family history: no significant - Social History Smoking Status: Never Smoker Substance Use Type: None - Medications Home Medications: Home Medications Medication Instructions Recorded Confirmed Last Taken Type Insulin Glargine,Hum.rec.anlog 26 units SUB-Q QPM 04/05/17 09/11/18 09/10/18 History [Basaglar Kwikpen U-100] Methimazole [Tapazole] 10 mg PO QDAY 04/05/17 09/11/18 09/10/18 History Admelog 9 units SUB-Q TID 09/11/18 09/11/18 09/10/18 History Insulin Glargine [Lantus VIAL] 20 units SUB-Q QHS units 09/14/18 Unknown Rx Lispro Insulin [HumaLOG] 0 unit SUB-Q Q6H units 09/14/18 Unknown Rx Pantoprazole [Protonix TAB] 40 mg PO DAILY #30 tablet 09/14/18 Unknown Rx Sulfamethoxazole/Trimethoprim 1 each PO BID #14 tablet 09/14/18 Unknown Rx [Bactrim DS TAB] methIMAzole [Tapazole] 10 mg PO QDAY tablet 09/14/18 Unknown Rx Ibuprofen [Motrin] 800 mg PO Q8HR PRN #30 tablet 01/24/19 Unknown Rx Nitrofurantoin [place]/M-Cryst 100 mg PO Q12HR #10 capsule 01/24/19 Unknown Rx [Macrobid CAP] Tamsulosin [Flomax] 0.4 mg PO QDAY #10 cap 01/24/19 Unknown Rx ED Physical Exam - General Limitations: No Limitations General appearance: alert, in no apparent distress - Head Head exam: Present: atraumatic, normocephalic - Eye Eye exam: Present: normal appearance - ENT ENT exam: Present: mucous membranes moist - Neck Neck exam: Present: normal inspection - Respiratory Respiratory exam: Present: normal lung sounds bilaterally. Absent: respiratory distress - Cardiovascular Cardiovascular Exam: Present: regular rate, normal rhythm. Absent: systolic murmur, diastolic murmur, rubs, gallop - GI/Abdominal GI/Abdominal exam: Present: soft, tenderness (Left flank tenderness), normal bowel sounds - Extremities Exam Extremities exam: Present: normal inspection - Back Exam Back exam: Present: normal inspection - Neurological Exam Neurological exam: Present: alert, oriented X3 - Psychiatric Psychiatric exam: Present: normal affect, normal mood - Skin Skin exam: Present: warm, dry, intact, normal color. Absent: rash ED Course Vital Signs 09/13/19 09/13/19 09/13/19 01:55 02:15 02:30 Temperature 98.5 F 99.2 F Pulse Rate 98 H 89 93 H Respiratory 18 18 24 Rate Blood Pressure 134/90 123/89 Blood Pressure 123/91 [Left] O2 Sat by Pulse 99 99 96 Oximetry 09/13/19 09/13/19 09/13/19 02:45 03:00 03:14 Temperature Pulse Rate 98 H 90 Respiratory 13 22 18 Rate Blood Pressure 113/72 113/72 Blood Pressure [Left] O2 Sat by Pulse 98 99 Oximetry 09/13/19 09/13/19 09/13/19 03:15 03:30 03:44 Temperature Pulse Rate 91 H 92 H Respiratory 19 18 18 Rate Blood Pressure 112/73 112/73 Blood Pressure [Left] O2 Sat by Pulse 99 98 Oximetry 09/13/19 09/13/19 09/13/19 03:46 05:00 05:30 Temperature Pulse Rate 91 H 94 H Respiratory 17 18 18 Rate Blood Pressure 112/73 124/89 Blood Pressure [Left] O2 Sat by Pulse 98 96 Oximetry - Reevaluation(s) Reevaluation #1: Patient still complaining of pain. Patient will be given another milligram of Dilaudid. Patient still having nausea. Patient denies vomiting. 09/13/19 05:00 Reevaluation #2: Patient found to be in DKA and intractable pain. Patient will be placed on a DKA protocol. 09/13/19 05:00 Reevaluation #3: I discussed all results with patient. I discussed plan of care with patient. Patient agrees with plan of care and admission. Patient to be admitted to the hospitalist service. 09/13/19 06:08 - Consultations Consultation #1: Hospitalist consulted for admission. Hospitalist to admit patient. 09/13/19 06:08 ED Medical Decision Making - Lab Data Result diagrams: 09/13/19 03:18 09/13/19 04:23 - Radiology Data Radiology results: report reviewed CT ABDOMEN AND PELVIS WITHOUT CONTRAST INDICATION: Right flank pain radiating to back. COMPARISON: CT abdomen and pelvis without contrast from 01/24/2019. TECHNIQUE: Axial, coronal and sagittal CT imaging of the abdomen and pelvis was performed without contrast. All CT scans at this location are performed using CT dose reduction for ALARA by means of automated exposure control. FINDINGS: LOWER CHEST: No significant abnormality. LIVER: No significant abnormality. BILIARY: Prior cholecystectomy. No biliary ductal dilatation. PANCREAS: No significant abnormality. SPLEEN: No significant abnormality. ADRENALS: No significant abnormality. KIDNEYS AND URETERS: A nonobstructive left lower renal pole stone measures 4 mm. 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 No additional significant abnormality. GI TRACT: No significant abnormality of the stomach, small bowel or colon. Unremarkable appendix. PERITONEUM: No free fluid. No free air. No fluid collection. LYMPH NODES: No significant adenopathy. VASCULATURE: There is a similarly positioned stent located along the left renal vein/IVC. No additional significant abnormality. URINARY BLADDER: No significant abnormality. REPRODUCTIVE ORGANS: No significant abnormality. ADDITIONAL FINDINGS: None. SKELETAL SYSTEM: No significant abnormality. IMPRESSION: 1. No acute abnormality of the abdomen or pelvis. 2. Additional findings as above are similar to the prior CT. - Medical Decision Making Patient is a 34-year-old female that [facility] emergency room with flank pain and nausea vomiting and elevated blood sugar. Patient has a history of type 1 diabetes who patient has had DKA in the past. Patient found to have a low bicarb and elevated anion gap. Patient's finding consistent with mild DKA. Patient placed on fluids and insulin drip. Patient given IV antibiotics for UTI. Patient had a CT and was negative for acute findings. Patient admitted to the hospitalist service and into the ICU. - Differential Diagnosis DKA, UTI, pyelonephritis, abdominal pain, hyperglycemia, N/V Critical Care Time: Yes Critical care time in (mins) excluding proc time.: 35 Critical care attestation.: If time is entered above; I have spent that time in minutes in the direct care of this critically ill patient, excluding procedure time. Critical Care Time: 35 minutes ED Disposition Clinical Impression: Flank pain, Hyperglycemia DKA, type 1 Qualifiers: Diabetes mellitus complication detail: without coma Qualified Code(s): E10.10 - Type 1 diabetes mellitus with ketoacidosis without coma Nausea and vomiting Qualifiers: Vomiting type: unspecified Vomiting Intractability: intractable Qualified Code(s): R11.2 - Nausea with vomiting, unspecified UTI (urinary tract infection) Qualifiers: Urinary tract infection type: acute cystitis Hematuria presence: with hematuria Qualified Code(s): N30.01 - Acute cystitis with hematuria Disposition: OP ADMIT IP TO THIS HOSP Is pt being admited?: Yes Does the pt Need Aspirin: No Condition: Critical Referrals: CHILD,VEE DOLAN [Other] - 3-5 Days Time of Disposition: 06:09
[2019-09-13 03:37] LABS: HCG Qualitative,Urine Negative (Negative)
[2019-09-13 03:45] LABS: Basophils # (Auto) 0.1 K/mm3 (0.0-0.1); Basophils % (Auto) 1.1 % (0.0-1.8); Eosinophils # (Auto) 0.1 K/mm3 (0.0-0.4); Hematocrit 36.8 % (30.3-42.9); Hemoglobin 11.7 gm/dl (10.1-14.3); Lymphocytes % (Auto) 36.9 % (13.4-35.0); Mean Corpuscular HGB Conc 32 % (30-34); Mean Corpuscular Volume 78 fl (79-97); Monocytes # (Auto) 0.4 K/mm3 (0.0-0.8); Monocytes % (Auto) 6.7 % (0.0-7.3); Platelet Count 284 K/mm3 (140-440); Red Cell Distribution Width 14.8 % (13.2-15.2)
[2019-09-13 04:08] LABS: Alanine Aminotransferase 8 units/L (7-56); BUN/Creatinine Ratio 13; Blood Urea Nitrogen 12 mg/dL (7-17); Hemolysis Index 9
[2019-09-13 04:14] LABS: Bilirubin,Direct < 0.2 mg/dL (0-0.2)
[2019-09-13] MEDS ORDERED: DEXTROSE 50% IN WATER (25GM) 50 ML SYRINGE IV PRN ×2 (04:17→08:55)
[2019-09-13] MEDS ORDERED: CEFEPIME/NS 2 GM/100 ML 2 GM/100 ML BAG IV ONE (04:56)
[2019-09-13] MEDS ORDERED: INSULIN REGULAR, HUMAN 100 UNITS in SODIUM CHLORIDE 0.9% 99 ML IV SCH (05:00)
[2019-09-13 05:10] LABS: BUN/Creatinine Ratio 15; Blood Urea Nitrogen 12 mg/dL (7-17); Calcium 8.7 mg/dL (8.4-10.2); Hemolysis Index 1
--- NOTE | 2019-09-13 06:10 | Cat Scan Report ---
CT ABDOMEN AND PELVIS WITHOUT CONTRAST INDICATION: Right flank pain radiating to back. COMPARISON: CT abdomen and pelvis without contrast from 01/24/2019. TECHNIQUE: Axial, coronal and sagittal CT imaging of the abdomen and pelvis was performed without co ntrast. All CT scans at this location are performed using CT dose reduction for ALARA by means of au tomated exposure control. FINDINGS: LOWER CHEST: No significant abnormality. LIVER: No significant abnormality. BILIARY: Prior cholecystectomy. No biliary ductal dilatation. PANCREAS: No significant abnormality. SPLEEN: No significant abnormality. ADRENALS: No significant abnormality. KIDNEYS AND URETERS: A nonobstructive left lower renal pole stone measures 4 mm. 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 No additional significant abnormality. GI TRACT: No significant abnormality of the stomach, small bowel or colon. Unremarkable appendix. PERITONEUM: No free fluid. No free air. No fluid collection. LYMPH NODES: No significant adenopathy. VASCULATURE: There is a similarly positioned stent located along the left renal vein/IVC. No addition al significant abnormality. URINARY BLADDER: No significant abnormality. REPRODUCTIVE ORGANS: No significant abnormality. ADDITIONAL FINDINGS: None. SKELETAL SYSTEM: No significant abnormality. IMPRESSION: 1. No acute abnormality of the abdomen or pelvis. 2. Additional findings as above are similar to the prior CT. Signer Name: Gurpreet Pruitt MD Signed: 09/13/2019 6:06 AM Workstation Name: [id number]
[2019-09-13] MEDS ORDERED: D5W/0.45% NACL/KCL 20 MEQ 20 MEQ/1,000 ML BAG IV ONE ×2 (07:38)
[2019-09-13 07:41] LABS: BUN/Creatinine Ratio 13; Blood Urea Nitrogen 10 mg/dL (7-17); Calcium 8.5 mg/dL (8.4-10.2); Hemolysis Index 73
[2019-09-13] MEDS ORDERED: diphenhydrAMINE 50 MG/ML VIAL ONE (08:34)
[2019-09-13] MEDS ORDERED: INSULIN NPH/REGULAR 70/30 INJ SUB-Q ONE (09:30)
--- NOTE | 2019-09-13 11:28 | History and Physical Report ---
History of Present Illness Date of examination: 09/13/19 Date of admission: 09/13/19 06:37 Chief complaint: DKA History of present illness: Patient is a 34-year-old female with PMH DM1, kidney stones with hydronephrosis s/p nephrostomy tubes/ureteral stents, chronic renal vein thrombosis was on Eliquis in the past and hyperthyroidism that presents emergency room with complaints of left flank pain, back pain, nausea vomiting, elevated blood sugar. 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 Patient denies fever and chills. Patient also complains of dysuria. Patient denies vaginal discharge. Patient denies possibility of . Patient denies recent travel. Patient denies recent international travel. Patient denies exposure to the novel coronavirus. Patient denies sick contacts. Patient denies fever and chills. Patient denies cough. Patient denies diarrhea. Patient denies coming in contact with anybody with symptoms of the novel coronavirus. Past History Past Medical History: diabetes, hyperthyroidism Past Surgical History: No surgical history Social history: no significant social history Family history: no significant family history Medications and Allergies Allergies Allergy/AdvReac Type Severity Reaction Status Date / Time ketorolac tromethamine Allergy Severe Hives Verified 09/13/19 01:58 [From Toradol] ketorolac [From Toradol] Allergy Itching Verified 09/13/19 01:58 morphine Allergy Itching Verified 09/13/19 01:58 Home Medications Medication Instructions Recorded Confirmed Last Taken Type Insulin Glargine,Hum.rec.anlog 26 units SUB-Q QPM 04/05/17 09/13/19 09/10/18 History [Basaglar Kwikpen U-100] Admelog 9 units SUB-Q TID 09/11/18 09/13/19 09/10/18 History methIMAzole [Tapazole] 10 mg PO QDAY tablet 09/14/18 09/13/19 Unknown Rx Active Meds: Active Medications Dextrose (D50w (25gm) Syringe) 50 ml IV Q30MIN PRN; Protocol PRN Reason: Hypoglycemia Potassium Chloride/Dextrose/Sod Cl (D5w/0.45% Nacl/Kcl 20 Meq) 20 meq in 1,000 mls @ 125 mls/hr IV ONCE ONE Stop: 09/13/19 15:37 Last Admin: 09/13/19 07:54 Dose: 125 mls/hr Documented by: Insulin Glargine (Lantus) 26 units SUB-Q QHS MATEO Insulin Human Regular (Humulin R) 0 units SUB-Q ACHS MATEO; Protocol Review of Systems All systems: negative Exam - Constitutional Vitals: Temp Pulse Resp BP Pulse Ox 99.2 F 96 H 23 110/64 96 09/13/19 02:15 09/13/19 11:00 09/13/19 11:00 09/13/19 11:00 09/13/19 11:00 General appearance: Present: no acute distress, well-nourished - EENT Eyes: Present: PERRL ENT: hearing intact, clear oral mucosa - Neck Neck: Present: supple, normal ROM - Respiratory Respiratory effort: normal Respiratory: bilateral: CTA - Cardiovascular Heart Sounds: Present: S1 & S2. Absent: rub, click - Extremities Extremities: pulses symmetrical, No edema Peripheral Pulses: within normal limits - Abdominal General gastrointestinal: Present: soft, non-tender, non-distended, normal bowel sounds Female genitourinary: Present: normal - Integumentary Integumentary: Present: clear, warm, dry - Musculoskeletal Musculoskeletal: gait normal, strength equal bilaterally - Psychiatric Psychiatric: appropriate mood/affect, intact judgment & insight - Neurologic Neurologic: CNII-XII intact, moves all extremities Results - Labs CBC & Chem 7: 09/13/19 03:18 09/13/19 06:47 Labs: Laboratory Last Values WBC 5.5 K/mm3 (4.5-11.0) 09/13/19 03:18 RBC 4.70 M/mm3 (3.65-5.03) 09/13/19 03:18 Hgb 11.7 gm/dl (10.1-14.3) 09/13/19 03:18 Hct 36.8 % (30.3-42.9) 09/13/19 03:18 MCV 78 fl (79-97) L 09/13/19 03:18 MCH 25 pg (28-32) L 09/13/19 03:18 MCHC 32 % (30-34) 09/13/19 03:18 RDW 14.8 % (13.2-15.2) 09/13/19 03:18 Plt Count 284 K/mm3 (140-440) 09/13/19 03:18 Lymph % (Auto) 36.9 % (13.4-35.0) H 09/13/19 03:18 [place] % (Auto) 6.7 % (0.0-7.3) 09/13/19 03:18 Eos % (Auto) 2.0 % (0.0-4.3) 09/13/19 03:18 Baso % (Auto) 1.1 % (0.0-1.8) 09/13/19 03:18 Lymph # 2.0 K/mm3 (1.2-5.4) 09/13/19 03:18 [place] # 0.4 K/mm3 (0.0-0.8) 09/13/19 03:18 Eos # 0.1 K/mm3 (0.0-0.4) 09/13/19 03:18 Baso # 0.1 K/mm3 (0.0-0.1) 09/13/19 03:18 Seg Neutrophils % 53.3 % (40.0-70.0) 09/13/19 03:18 Seg Neutrophils # 3.0 K/mm3 (1.8-7.7) 09/13/19 03:18 Sodium 137 mmol/L (137-145) 09/13/19 06:47 Potassium 4.6 mmol/L (3.6-5.0) 09/13/19 06:47 Chloride 104.9 mmol/L (98-107) 09/13/19 06:47 Carbon Dioxide 21 mmol/L (22-30) L 09/13/19 06:47 Anion Gap 16 mmol/L 09/13/19 06:47 BUN 10 mg/dL (7-17) 09/13/19 06:47 Creatinine 0.8 mg/dL (0.7-1.2) 09/13/19 06:47 Estimated GFR > 60 ml/min 09/13/19 06:47 BUN/Creatinine Ratio 13 % 09/13/19 06:47 Glucose 257 mg/dL (65-100) H 09/13/19 06:47 POC Glucose 308 (70-105) H 09/13/19 06:45 Hemoglobin A1c 10.2 % (4-6) H 09/13/19 03:18 Calcium 8.5 mg/dL (8.4-10.2) 09/13/19 06:47 Phosphorus 3.30 mg/dL (2.5-4.5) 09/13/19 04:23 Magnesium 2.00 mg/dL (1.7-2.3) 09/13/19 04:23 Total Bilirubin 0.40 mg/dL (0.1-1.2) 09/13/19 03:18 Direct Bilirubin < 0.2 mg/dL (0-0.2) 09/13/19 03:18 Indirect Bilirubin 0.2 mg/dL 09/13/19 03:18 AST 11 units/L (5-40) 09/13/19 03:18 ALT 8 units/L (7-56) 09/13/19 03:18 Alkaline Phosphatase 80 units/L (35-129) 09/13/19 03:18 Total Protein 7.9 g/dL (6.3-8.2) 09/13/19 03:18 Albumin 4.0 g/dL (3.9-5) 09/13/19 03:18 Albumin/Globulin Ratio 1.0 % 09/13/19 03:18 Urine Color Colorless (Yellow) 09/13/19 02:33 Urine Turbidity Clear (Clear) 09/13/19 02:33 Urine pH 7.0 (5.0-7.0) 09/13/19 02:33 Ur Specific [place] 1.020 (1.003-1.030) 09/13/19 02:33 Urine Protein <15 mg/dl mg/dL (Negative) 09/13/19 02:33 Urine Glucose (UA) >=500 mg/dL (Negative) 09/13/19 02:33 Urine Ketones Neg mg/dL (Negative) 09/13/19 02:33 Urine Blood Neg (Negative) 09/13/19 02:33 Urine Nitrite Neg (Negative) 09/13/19 02:33 Urine Bilirubin Neg (Negative) 09/13/19 02:33 Urine Urobilinogen < 2.0 mg/dL (<2.0) 09/13/19 02:33 Ur Leukocyte Esterase Tr (Negative) 09/13/19 02:33 Urine WBC (Auto) 15.0 /HPF (0.0-6.0) H 09/13/19 02:33 Urine RBC (Auto) 1.0 /HPF (0.0-6.0) 09/13/19 02:33 U Epithel Cells (Auto) 1.0 /HPF (0-13.0) 09/13/19 02:33 Urine HCG, Qual Negative (Negative) 09/13/19 03:40 [place]/IV: IV Catheter Type [Right INT / Saline Lock Forearm] Assessment and Plan Assessment and plan: DKA - due to noncompliance; admitted to ICU and started on insulin drip, IV fluids and electrolytes replacement per protocol; this morning AG closed, so we will transition to subcutaneous insulin and transfer to floor. Also, she will be started consistent carbohydrates diet; Accu-Cheks and SSI to assess insulin requirements. Started home regimen lantus 26 units at bedtime. UTI. Start Rocephin and f/u Cx Hyperthyroidism - resume methimazole Hx Renal vein thrombosis - started and discharged on anticoagulation with Eliquis at least 2 times, but noncompliant despite extensive counseling; evaluated multiple times by vascular surgery and no intervention recommended except anticoagulation
[2019-09-13] MEDS: INSULIN REGULAR, HUMAN 100 UNITS/1 ML SUB-Q SCH ×3 (12:32→22:04)
[2019-09-13] MEDS: cefTRIAXone/NS 1 GM/50 ML 1 GM/50 ML BAG IV SCH (12:51)
[2019-09-13] MEDS: oxyCODONE /ACETAMINOPHEN 5-325MG TAB PO PRN ×2 (12:54→17:16)
[2019-09-13] MEDS ORDERED: HYDROmorphone 2 MG/1 ML INJ IV ONE (19:50)
[2019-09-13] MEDS ORDERED: ONDANSETRON 4 MG/2 ML INJ IV PRN (19:53)
[2019-09-13] MEDS ORDERED: INSULIN GLARGINE 100 UNITS/ML SUB-Q SCH (22:00)
[2019-09-14] MEDS: oxyCODONE /ACETAMINOPHEN 5-325MG TAB PO PRN ×2 (02:00→09:56)
[2019-09-14] MEDS ORDERED: HYDROmorphone 2 MG/1 ML INJ IV ONE (03:26)
[2019-09-14 03:50] LABS: Bilirubin,Urine NEG (Negative); Blood,Urine SM (Negative); Color,Urine Straw (Yellow); Mucus,Urine FEW /HPF; Protein,Urine <15 mg/dL mg/dL (Negative); Urobilinogen,Urine < 2.0 mg/dL (<2.0)
[2019-09-14 05:38] VITALS: BP 119/79
[2019-09-14] MEDS: INSULIN REGULAR, HUMAN 100 UNITS/1 ML SUB-Q SCH ×2 (08:28→13:00)
--- NOTE | 2019-09-14 08:44 | Discharge Summary ---
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 Patient states that her nausea vomiting, lower back pain and flank pain started approximately [address] scan of abdomen and pelvis showed no abnormalities. The patient was admitted with diagnosis of DKA and UTI. Patient was placed on insulin drip and later transitioned to her home medication of long-acting insulin. UTI was treated with IV antibiotics and urine culture was found to be negative. Patient is felt to have received maximal hospital benefit and will be discharged home. Dedicated discharge time 32 minutes. Disposition: TO HOME OR SELFCARE Time spent for discharge: 32 - Discharge Diagnoses (1) DKA, type 1 Status: Acute Qualifiers: Diabetes mellitus complication detail: without coma Qualified Code(s): E10.10 - Type 1 diabetes mellitus with ketoacidosis without coma (2) UTI (urinary tract infection) Status: Acute Qualifiers: Urinary tract infection type: acute cystitis Hematuria presence: with h ematuria Qualified Code(s): N30.01 - Acute cystitis with hematuria Comment: We will discharge patient on Bactrim Core Measure Documentation - Palliative Care Palliative Care/ Comfort Measures: Not Applicable - Core Measures Any of the following diagnoses?: none Exam - Constitutional Vitals: Temp Pulse Resp BP Pulse Ox 98.5 F 86 16 119/79 95 09/14/19 04:44 09/13/19 22:22 09/14/19 04:44 09/14/19 04:44 09/13/19 22:22 General appearance: Present: no acute distress, well-nourished - EENT Eyes: Present: PERRL ENT: hearing intact, clear oral mucosa - Neck Neck: Present: supple, normal ROM - Respiratory Respiratory effort: normal Respiratory: bilateral: CTA - Cardiovascular Heart Sounds: Present: S1 & S2. Absent: rub, click - Extremities Extremities: pulses symmetrical, No edema Peripheral Pulses: within normal limits - Abdominal General gastrointestinal: Present: soft, non-tender, non-distended, normal bowel sounds Female genitourinary: Present: normal - Integumentary Integumentary: Present: clear, warm, dry - Musculoskeletal Musculoskeletal: gait normal, strength equal bilaterally - Psychiatric Psychiatric: appropriate mood/affect, intact judgment & insight - Neurologic Neurologic: CNII-XII intact, moves all extremities Plan Activity: advance as tolerated Weight Bearing Status: Weight Bear as Tolerated Follow up with: CHILD,VEERUDDY DOLAN [Other] - 3-5 Days Prescriptions: Admelog 9 units SUB-Q TID 30 Days Insulin Glargine,Hum.rec.anlog [Basaglar Kwikpen U-100] 26 units SUB-Q QPM 30 Days methIMAzole [Tapazole] 10 mg PO QDAY #30 tablet
[2019-09-14] MEDS: cefTRIAXone/NS 1 GM/50 ML 1 GM/50 ML BAG IV SCH (09:47)
== END 2019-09-14 13:25 | disposition home or self-care (01) ==
LOC: ED 01:52 → CC1 06:37 → INTOOBSV 06:37 → 3A 10:04
PROVIDERS: ADMIT Internal Medicine Geriatric Medicine; ATTEND Hospitalist
DX: E10.10 Type 1 diabetes mellitus with ketoacidosis without coma (principal); R11.2 Nausea with vomiting, unspecified; N30.01 Acute cystitis with hematuria; E05.90 Thyrotoxicosis, unspecified without thyrotoxic crisis or storm; Z87.442 Personal history of urinary calculi; Z86.718 Personal history of other venous thrombosis and embolism; Z93.6 Other artificial openings of urinary tract status; Z96.0 Presence of urogenital implants; Z96.41 Presence of insulin pump (external) (internal); Z79.01 Long term (current) use of anticoagulants; Z79.899 Other long term (current) drug therapy; Z88.6 Allergy status to analgesic agent; Z88.5 Allergy status to narcotic agent
CPT/HCPCS: 36415; 74176; 80048; 80076; 81001; 81025; 82962; 83036; 83735; 84100; 85025; 87086; 96361; 96365; 96366; 96367; 96368; 96372; 96375; 96376; 99291; G0378; J0692; J0696; J1170; J1200; J2405; J7030; J1815

== ENCOUNTER 2020-01-20 23:35 | Emergency (ER) | payer MEDICAID ==
[2020-01-21 02:17] LABS: Basophils # (Auto) 0.1 K/mm3 (0.0-0.1); Basophils % (Auto) 1.2 % (0.0-1.8); Eosinophils # (Auto) 0.1 K/mm3 (0.0-0.4); Eosinophils % (Auto) 1.6 % (0.0-4.3); Hematocrit 37.1 % (30.3-42.9); Hemoglobin 11.7 gm/dl (10.1-14.3); Lymphocytes # (Auto) 2.5 K/mm3 (1.2-5.4); Lymphocytes % (Auto) 36.2 % (13.4-35.0); Mean Corpuscular HGB Conc 32 % (30-34); Mean Corpuscular Volume 79 fl (79-97); Monocytes # (Auto) 0.3 K/mm3 (0.0-0.8); Monocytes % (Auto) 3.7 % (0.0-7.3); Platelet Count 197 K/mm3 (140-440); Red Cell Distribution Width 14.3 % (13.2-15.2)
[2020-01-21 02:42] LABS: Alanine Aminotransferase 6 units/L (7-56); Albumin 4.1 g/dL (3.9-5); BUN/Creatinine Ratio 16; Blood Urea Nitrogen 16 mg/dL (7-17); Calcium 9.2 mg/dL (8.4-10.2); Hemolysis Index 2
[2020-01-21 02:47] LABS: Bilirubin,Urine NEG (Negative); Blood,Urine MOD (Negative); Color,Urine Colorless (Yellow); Mucus,Urine FEW /HPF; Protein,Urine <15 mg/dL mg/dL (Negative); Urobilinogen,Urine < 2.0 mg/dL (<2.0)
[2020-01-21] MEDS ORDERED: SODIUM CHLORIDE 0.9% 1000 ML 1,000 ML IV ONE (03:21)
[2020-01-21] MEDS ORDERED: FLUORESCEIN 1 MG STRIP OP ONE (03:21)
[2020-01-21] MEDS ORDERED: TETRACAINE 0.5% OPHTH SOLN 4ML OD ONE (03:21)
[2020-01-21 03:51] VITALS: BP 124/83
[2020-01-21] MEDS ORDERED: INSULIN REGULAR, HUMAN 100 UNIT/ML 3ML VIAL IV ONE (04:00)
[2020-01-21] MEDS ORDERED: HYDROmorphone 1 MG/1 ML INJ IV ONE ×2 (04:11→05:10)
[2020-01-21] MEDS ORDERED: ONDANSETRON 4 MG/2 ML INJ IV ONE (04:13)
--- NOTE | 2020-01-21 05:17 | Emergency Department Report ---
HPI - General Chief Complaint: Abdominal Pain Time Seen by Provider: 01/21/20 03:02 - HPI HPI: This is a 34-year-old female who presents to the emergency department with multiple complaints. Patient says that she has high blood sugar. She is an insulin-dependent diabetic and says she is compliant with her Basaglar at 26 units at night, and Admelog at 9 units 3 times per day. She has been having some nausea, vomiting, generalized abdominal discomfort. Secondly, the patient complains of right eye pain and decreased vision that has been getting pro gressively worse over the past 2 days. This is associated with some pain around the right eye and a headache. The patient has been diagnosed with glaucoma and follows with the "glaucoma center at [place]." The patient does admit that she will get some intermittent pain in that right eye but it has not been this intense before and she says that she is having severely decreased vision to the point where "I cannot see out of my right eye." The patient became concerned as she thinks that her right eye is "turning blue." Patient also complains of right leg pain, from the knee down to the foot, that has been going on for the past week. She denies any swelling, skin color change, rash or lesions. 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 She has not taken anything for symptoms prior to presentation. She denies any fever. ED Past Medical Hx - Past Medical History Previous Medical History?: Yes Hx Congestive Heart Failure: No Hx Diabetes: Yes Hx Deep Vein Thrombosis: No Hx Renal Disease: Yes (kidney stones) Hx Kidney Stones: Yes Hx Asthma: No Hx COPD: No Hx Tuberculosis: No Hx HIV: No Additional medical history: THYROID, 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 - Surgical History Past Surgical History?: Yes Hx Pacemaker: No Hx Internal Defibrillator: No Hx Cholecystectomy: Yes Additional Surgical History: NEPHOSTOMY STENTS, - Social History Smoking Status: Never Smoker Substance Use Type: None - Medications Home Medications: Home Medications Medication Instructions Recorded Confirmed Last Taken Type Admelog 9 units SUB-Q TID 30 Days 09/14/19 Unknown Rx Insulin Glargine,Hum.rec.anlog 26 units SUB-Q QPM 30 Days 09/14/19 Unknown Rx [Basaglar Kwikpen U-100] Sulfamethoxazole/Trimethoprim 1 each PO BID #10 tablet 09/14/19 Unknown Rx [Bactrim DS TAB] methIMAzole [Tapazole] 10 mg PO QDAY #30 tablet 09/14/19 Unknown Rx ED Review of Systems ROS: Stated complaint: HIGH BLOOD SUGAR Other details as noted in HPI Comment: All other systems reviewed and negative Constitutional: denies: chills, fever Eyes: eye pain, vision change ENT: denies: ear pain, throat pain Respiratory: denies: cough, shortness of breath Cardiovascular: denies: chest pain, palpitations Gastrointestinal: abdominal pain, nausea, vomiting Genitourinary: denies: dysuria, discharge Musculoskeletal: arthralgia, myalgia Skin: denies: rash, lesions Neurological: headache. denies: weakness, numbness Physical Exam - Physical Exam Vital Signs: Vital Signs 01/21/20 01/21/20 01:32 03:47 Temperature 98.3 F Pulse Rate 98 H 102 H Respiratory 16 18 Rate Blood Pressure 128/88 Blood Pressure 124/83 [Right] O2 Sat by Pulse 100 100 Oximetry Physical Exam: GENERAL: The patient is well-developed well-nourished. HENT: Normocephalic. Atraumatic. Patient has moist mucous membranes. EYES: Extraocular motions are intact. The right pupil is about 7 mm in diameter, slightly cloudy, and is fixed, nonreactive to light. The patient is only able to see shadows out of the right eye. The left pupil is about 4 mm in diameter, reactive to light. NECK: Supple. Trachea is midline. CHEST/LUNGS: Clear to auscultation. There is no respiratory distress noted. HEART/CARDIOVASCULAR: Regular. There is no tachycardia. There is no murmur. ABDOMEN: Abdomen is soft. Mild generalized abdominal tenderness to palpation. No guarding. Patient has normal bowel sounds. There is no abdominal distention. SKIN: Skin is warm and dry. NEURO: The patient is awake, alert, and oriented. The patient is cooperative. The patient has no motor or sensory deficits. Normal speech. MUSCULOSKELETAL: There is tenderness to palpation to the right lower leg including the tib-fib and calf. There is no limitation range of motion. Dorsalis pedis pulse +2/4. ED Course Vital Signs 01/21/20 01/21/20 01:32 03:47 Temperature 98.3 F Pulse Rate 98 H 102 H Respiratory 16 18 Rate Blood Pressure 128/88 Blood Pressure 124/83 [Right] O2 Sat by Pulse 100 100 Oximetry - Reevaluation(s) Reevaluation #1: 01/21/20 05:45 Lab Results 01/21/20 01/21/20 01/21/20 Range/Units 01:53 02:01 02:01 WBC 7.0 (4.5-11.0) K/mm3 RBC 4.70 (3.65-5.03) M/mm3 Hgb 11.7 (10.1-14.3) gm/dl Hct 37.1 (30.3-42.9) % MCV 79 (79-97) fl MCH 25 L (28-32) pg MCHC 32 (30-34) % RDW 14.3 (13.2-15.2) % Plt Count 197 (140-440) K/mm3 Lymph % (Auto) 36.2 H (13.4-35.0) % [place] % (Auto) 3.7 (0.0-7.3) % Eos % (Auto) 1.6 (0.0-4.3) % Baso % (Auto) 1.2 (0.0-1.8) % Lymph # (Auto) 2.5 (1.2-5.4) K/mm3 [place] # (Auto) 0.3 (0.0-0.8) K/mm3 Eos # (Auto) 0.1 (0.0-0.4) K/mm3 Baso # (Auto) 0.1 (0.0-0.1) K/mm3 Seg Neutrophils % 57.3 (40.0-70.0) % Seg Neutrophils # 4.0 (1.8-7.7) K/mm3 VBG pH (7.320-7.420) Sodium 128 L (137-145) mmol/L Potassium 4.5 (3.6-5.0) mmol/L Chloride 93.7 L (98-107) mmol/L Carbon Dioxide 23 (22-30) mmol/L Anion Gap 16 mmol/L BUN 16 (7-17) mg/dL Creatinine 1.0 (0.6-1.2) mg/dL Estimated GFR > 60 ml/min BUN/Creatinine Ratio 16 % Glucose 575 H* (65-100) mg/dL POC Glucose > 500 H (70-105) Calcium 9.2 (8.4-10.2) mg/dL Total Bilirubin 0.40 (0.1-1.2) mg/dL AST 13 (5-40) units/L ALT 6 L (7-56) units/L Alkaline Phosphatase 74 (35-129) units/L Total Protein 8.2 (6.3-8.2) g/dL Albumin 4.1 (3.9-5) g/dL Albumin/Globulin Ratio 1.0 % Lipase 11 L (13-60) units/L HCG, Qual (Negative) Urine Color (Yellow) Urine Turbidity (Clear) Urine pH (5.0-7.0) Ur Specific [place] (1.003-1.030) Urine Protein (Negative) mg/dL Urine Glucose (UA) (Negative) mg/dL Urine Ketones (Negative) mg/dL Urine Blood (Negative) Urine Nitrite (Negative) Urine Bilirubin (Negative) Urine Urobilinogen (<2.0) mg/dL Ur Leukocyte Esterase (Negative) Urine WBC (Auto) (0.0-6.0) /HPF Urine RBC (Auto) (0.0-6.0) /HPF U Epithel Cells (Auto) (0-13.0) /HPF Urine Mucus /HPF 01/21/20 01/21/20 01/21/20 Range/Units 02:01 02:31 02:39 WBC (4.5-11.0) K/mm3 RBC (3.65-5.03) M/mm3 Hgb (10.1-14.3) gm/dl Hct (30.3-42.9) % MCV (79-97) fl MCH (28-32) pg MCHC (30-34) % RDW (13.2-15.2) % Plt Count (140-440) K/mm3 Lymph % (Auto) (13.4-35.0) % [place] % (Auto) (0.0-7.3) % Eos % (Auto) (0.0-4.3) % Baso % (Auto) (0.0-1.8) % Lymph # (Auto) (1.2-5.4) K/mm3 [place] # (Auto) (0.0-0.8) K/mm3 Eos # (Auto) (0.0-0.4) K/mm3 Baso # (Auto) (0.0-0.1) K/mm3 Seg Neutrophils % (40.0-70.0) % Seg Neutrophils # (1.8-7.7) K/mm3 VBG pH 7.359 (7.320-7.420) Sodium (137-145) mmol/L Potassium (3.6-5.0) mmol/L Chloride (98-107) mmol/L Carbon Dioxide (22-30) mmol/L Anion Gap mmol/L BUN (7-17) mg/dL Creatinine (0.6-1.2) mg/dL Estimated GFR ml/min BUN/Creatinine Ratio % Glucose (65-100) mg/dL POC Glucose (70-105) Calcium (8.4-10.2) mg/dL Total Bilirubin (0.1-1.2) mg/dL AST (5-40) units/L ALT (7-56) units/L Alkaline Phosphatase (35-129) units/L Total Protein (6.3-8.2) g/dL Albumin (3.9-5) g/dL Albumin/Globulin Ratio % Lipase (13-60) units/L HCG, Qual Negative (Negative) Urine Color Colorless (Yellow) Urine Turbidity Clear (Clear) Urine pH 5.0 (5.0-7.0) Ur Specific [place] 1.021 (1.003-1.030) Urine Protein <15 mg/dl (Negative) mg/dL Urine Glucose (UA) >=500 (Negative) mg/dL Urine Ketones Neg (Negative) mg/dL Urine Blood Mod (Negative) Urine Nitrite Neg (Negative) Urine Bilirubin Neg (Negative) Urine Urobilinogen < 2.0 (<2.0) mg/dL Ur Leukocyte Esterase Neg (Negative) Urine WBC (Auto) 1.0 (0.0-6.0) /HPF Urine RBC (Auto) 1.0 (0.0-6.0) /HPF U Epithel Cells (Auto) 1.0 (0-13.0) /HPF Urine Mucus Few /HPF - Consultations Consultation #1: 01/21/20 05:34 I spoke with the back roll lathe operator on-call at [place], Dr. Fonseca. 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 Dr. Fonseca has accepted the patient for ER to ER transfer for an ophthalmology consultation. She has requested the patient receive 1 to 2 drops of timolol and brimonidine prior to transfer, as long as it does not delay transfer. ED Medical Decision Making - Lab Data Result diagrams: 01/21/20 02:01 01/21/20 02:01 - Radiology Data Radiology results: report reviewed, image reviewed interpreted by me: Abdominal x-ray shows nonspecific nonobstructive bowel gas Right lower extremity venous Doppler ultrasound is negative for any acute DVT. - Medical Decision Making Regarding the patient's hyperglycemia, she does have a blood sugar of about 550. There is no elevation in the anion gap or any venous acidosis the patient does not appear in diabetic ketoacidosis. She was given a liter of fluid and a dose of IV insulin and her blood sugar by Accu-Chek came down to about 130. The patient has been complaining of right lower extremity pain from the knee dis tally. No obvious deformity. No swelling, skin color change, rash or lesions. A right lower extremity venous Doppler ultrasound was completed that did not show any evidence of a DVT. Patient was complaining of some nausea, vomiting and abdominal discomfort. She was given Zofran, IV analgesia. Other than the hyperglycemia, the metabolic panel was unremarkable including the belly labs such as LFTs, bilirubin. Urinalysis did not show any urinary tract infection or any signs of obvious dehydration. The patient had complained of right eye pain, vision change, headache. She admits to a history of glaucoma and does get intermittent pain to the right eye but says that this is more severe/intense than usual. The patient says something about seeing her eye turn blue. I do not see any bluish discoloration to the pupil, conjunctive a or periorbital. However the pupil is about 7 mm, dilated, and fixed, unreactive to light. I believe this is what the patient was seen when she looked in the mirror. She appears to have a normal left-sided visual acuity but she is only able to see shadows on the right side, and cannot even finger count. Patient was given tetracaine, followed by using the Luke- Pen, and the intraocular pressures on the right side ranged between 45-50. With the fixed and dilated pupil, increased intraocular pressure, headache, and history of glaucoma, my concern was for an acute closed angle glaucoma. 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 They requested the patient received timolol and brimonidine drops, which the patient did receive prior to transfer. Critical Care Time: Yes Critical care time in (mins) excluding proc time.: 35 Critical care attestation.: If time is entered above; I have spent that time in minutes in the direct care of this critically ill patient, excluding procedure time. Critical care time was spent on this patient in doing her initial evaluation, multiple reevaluations, ordering and interpretation of labs and imaging, IV fluid and IV insulin and treatment of her diabetic hyperglycemia, multiple ophthalmologic all eyedrops and diagnosis of and treatment of her increased pressure glaucoma, discussion with the accepting back roll lathe operator at [place], multiple discussions with the patient. Critical Care Time: 35 minutes ED Disposition Clinical Impression: Right leg pain, Pain, eye, right, Decreased vision of right eye Closed angle glaucoma Qualifiers: Glaucoma stage: indeterminate stage Qualified Code(s): H40.20X4 - Unspecified primary angle-closure glaucoma, indeterminate stage Uncontrolled diabetes mellitus Qualifiers: Diabetes mellitus type: type 1 Glycemic state: with hyperglycemia Qualified Code(s): E10.65 - Type 1 diabetes mellitus with hyperglycemia Nausea & vomiting Qualifiers: Vomiting type: unspecified Vomiting Intractability: non-intractable Qualified Code(s): R11.2 - Nausea with vomiting, unspecified Increased intraocular pressure Qualifiers: Laterality: right Qualified Code(s): H40.051 - Ocular hypertension, right eye Disposition: DC/TX-70 ANOTHER TYPE HLTHCARE Is pt being admited?: No Condition: Serious Referrals: PRIMARY CARE, [Primary Care Provider] - 3-5 Days Time of Disposition: 05:44
[2020-01-21] MEDS ORDERED: BRIMONIDINE 0.15% OPHTH SOLN OD ONE (05:28)
[2020-01-21] MEDS ORDERED: TIMOLOL 0.5% OPHTH SOLN 5 ML OD ONE (05:30)
--- NOTE | 2020-01-21 05:57 | XRay Report ---
ABDOMEN 2 VIEW(S) INDICATION / CLINICAL INFORMATION: Abd pain. COMPARISON: None available. FINDINGS: TUBES / LINES: None. BOWEL GAS PATTERN/EXTRALUMINAL GAS: No significant abnormality. No pneumatosis or secondary signs of free air. ADDITIONAL FINDINGS: No significant additional findings. IMPRESSION: 1. No acute abnormality. Signer Name: Gerson Damon MD Signed: 01/21/2020 5:52 AM Workstation Name: [id number]
--- NOTE | 2020-01-21 07:45 | Vascular Lab Report ---
DUPLEX DOPPLER LOWER EXTREMITY VEINS, RIGHT INDICATION / CLINICAL INFORMATION: RLE pain, calf pain. TECHNIQUE: Duplex doppler imaging was performed through the veins of the right lower extremity using venous comp ression and other maneuvers. COMPARISON: None available. FINDINGS: RIGHT COMMON FEMORAL VEIN: Negative. RIGHT FEMORAL VEIN: Negative. RIGHT POPLITEAL VEIN: Negative. RIGHT CALF VEINS: Negative. ADDITIONAL FINDINGS: None. IMPRESSION: 1. No sonographic evidence for DVT in the right lower extremity. Signer Name: Gerson Damon MD Signed: 01/21/2020 4:46 AM Workstation Name: [id number]
== END 2020-01-21 06:30 | disposition other institution (70) ==
LOC: ED 23:35
DX: H40.20X0 Unspecified primary angle-closure glaucoma, stage unspecified (principal); H40.051 Ocular hypertension, right eye; E11.9 Type 2 diabetes mellitus without complications; R11.2 Nausea with vomiting, unspecified; M79.604 Pain in right leg; H54.7 Unspecified visual loss; Z87.442 Personal history of urinary calculi; Z90.49 Acquired absence of other specified parts of digestive tract; Z98.890 Other specified postprocedural states; Z79.4 Long term (current) use of insulin; Z79.899 Other long term (current) drug therapy; Z88.8 Allergy status to other drugs, medicaments and biological substances
CPT/HCPCS: 36415; 74019; 80053; 81001; 82805; 82962; 83690; 84703; 85025; 93971; 96361; 96374; 96375; 96376; 99285; J1170; J2405; J7030; J1815

== ENCOUNTER 2021-06-13 22:20 | Emergency (ER) | payer MEDICAID | END 2021-06-14 07:15 | disposition left against medical advice (07) | LOC: ED 22:20 | DX: M54.50 Low back pain, unspecified (principal); R11.2 Nausea with vomiting, unspecified; Z53.21 Procedure and treatment not carried out due to patient leaving prior to being seen by health care provider | CPT/HCPCS: 82962 ==